=== PATIENT | male | born 1960 | race African-American/Black ===

== ENCOUNTER 2021-02-12 14:47 | Inpatient (IN) | payer MEDICARE, MEDICAID, SELFPAY ==
[2021-02-12] VITALS (8 sets, daily range): BP systolic 132–155; BP diastolic 60–97; PULSE 55–63; RESP 12–20; TEMP 36.3–37.2; O2SAT 96–100; BMI 27.8
--- NOTE | ~2021-02-12 | MR_ITS ---
EXAMINATION: MR MRCP wo con/w 3D wo ind pp DATE: 02/21/2021 17:55 INDICATION: Dilated common bile duct and main pancreatic duct. Assess for malignant stricture. TECHNIQUE: Magnetic resonance imaging (MRI) of the abdomen was performed without intravenous contrast . Sequences included coronal T2-weighted SS-FSE, coronal T2-weighted FS SS-FSE, coronal T2-weighted F S FIESTA, axial T2-weighted FS FIESTA, axial T2-weighted FIESTA, sagittal T2-weighted SS-FSE, axial T 1-weighted dual-echo FSPGR, axial T2-weighted SS-FSE, axial T1-weighted LAVA, axial T2-weighted STIR FSE. Thick-slab T2-weighted FRFSE-XL images were obtained for magnetic resonance cholangiopancreatogr aphy (MRCP). Rotating maximum intensity projection 3-D reconstructions of the volumetric data were cr eated by the technologist. COMPARISON: None. FINDINGS: ABDOMEN MRI: Cardiomegaly. Small right pleural effusion with dependent compressive atelectasis in the right lower lobe. Diffuse hepatic steatosis and cirrhosis with nodular liver surface. Small amount of perihepatic ascites. Intermediate T2 signal intensity sludge filling the nondilated gallbladder along with a few low signal intensity gallstones. There are numerous small cystic lesions along the dilated main panc reatic duct, the largest at the head measuring 2.5 x 1.0 cm. These likely represent a combination of dilated side branches and a chronic pseudocyst related to chronic pancreatitis with other cystic panc reatic neoplasm considered less likely. There is some peripancreatic edema surrounding the tail of th e pancreas suspicious for acute interstitial pancreatitis. Mild splenomegaly measuring 13.3 cm in max imal length which could be seen with portal venous hypertension. Bilateral adrenal glands are normal. Numerous tiny bilateral T2 hyperintense renal cysts, the largest measuring up to 7 mm in maximal anirudh meter. Bowels including the appendix are unremarkable. Small amount of perihepatic ascites. No pathol ogically enlarged abdominal lymphadenopathy. Mild lumbar levocurvature with mild to moderate spondylo sis. ABDOMEN MRCP: There is intrahepatic biliary ductal dilation as well as dilation of the proximal common bile duct wh ich measures up to 2.0 cm in maximal diameter. There is abrupt transition at a focal stricture at the distal common bile duct which measures approximately 1.8 cm in length where the lumen becomes nearly indiscernible before increasing to normal caliber 4 mm in the distalmost 1 cm of the duct. There is a similar stricture measuring approximately 1.7 cm in length at the main pancreatic duct and the panc reas which similarly increases to normal caliber in the distal most 1 cm of the duct. No definitive s urrounding mass identified at the head of the pancreas although evaluation is somewhat limited by the absence of intravenous contrast. IMPRESSION: 1. Segmental strictures at the head of the pancreas and both the distal common bile duct and distal m ain pancreatic duct with significant upstream dilation of main pancreatic duct as well as the more pr oximal intra and extrahepatic bile ducts. This raises concern for a pancreatic adenocarcinoma althoug h no discrete masses identified. This could also represent sequela of chronic pancreatitis. Recommend ERCP with biopsy for further evaluation. 2. Mild edema in the fat surrounding the tail of the pancreas suspicious for acute interstitial pancr eatitis. 3. Multiple cystic lesions along the dilated main pancreatic duct most likely combination of dilated side branches and pancreatic pseudocysts related to chronic pancreatitis. Correlate with clinical his tory. Cystic pancreatic neoplasms including intraductal papillary mucinous neoplasm (IPMN), mucinous cystic neoplasm (MCN), and the less common serous cystadenoma and neuroendocrine tumor are considered less likely. 4. Cholelithiasis. No evident choledocholithiasis. 5. Hepatic
--- NOTE | ~2021-02-12 | XR_ITS ---
XR abdomen NG/feed tube insert INDICATION: Evaluate G-tube position. TECHNIQUE: Limited KUB perform for evaluating NG tube . COMPARISON: No prior studies for comparison. FINDINGS: NG tube tip in the stomach, side port above the GE junction. Visualized bowel gas pattern is unremarkable.There is residual contrast in the colon. IMPRESSION: 1: NG tube tip in the stomach, side port above the GE junction. Reviewed, dictated and finalized at location A.
--- NOTE | ~2021-02-12 | US_ITS ---
EXAMINATION: US right upper quadrant DATE: 02/20/2021 08:31 INDICATION: Elevated liver function tests TECHNIQUE: Multiple grayscale and Doppler ultrasound images of the abdomen were obtained. COMPARISON: None FINDINGS: The region of the pancreas is partially obscured the pancreas is not clearly visualized. Liver has no rmal echogenicity but with coarsened echotexture with suggestion of possible surface nodularity and c ould not exclude cirrhosis. No liver lesion identified. No intrahepatic biliary duct dilation suspect ed. Portal venous flow was seen in the hepatopetal, normal direction and has normal Doppler waveform. The portal vasculature appears prominent which could be seen with portal venous hypertension. The ga llbladder is incompletely distended with minimal wall thickening. There is conglomeration likely slud ge and shadowing gallstones in the dependent aspect of the gallbladder. Trace amount of pericholecyst ic fluid. Sonographic Balnco sign was reported as negative by the form setter helper. The common bile duct m easures 3-4 mm, which is normal. IMPRESSION: 1. Coarsened echotexture and suggestion of some surface nodularity to the liver suspicious for cirrho sis. Correlate with clinical history. 2. Cholelithiasis with nonspecific minimal gallbladder wall thickening and trace amount of pericholec ystic fluid but without distention of the gallbladder or sonographic Blanco's to more specifically castellon ggest acute cholecystitis. The wall thickening and fluid can be seen in the setting of cirrhosis or o ther liver disease, heart failure or renal failure. If there is continued clinical concern for acute cholecystitis would recommend HIDA scan for further evaluation. 3. Increased prominence of the portal veins which can be seen in the setting of portal venous hyperte nsion. Reviewed, dictated and finalized at location B. IMPRESSION: 1. Coarsened echotexture and suggestion of some surface nodularity to the liver suspicious for cirrhosis. Correlate with clinical history. 2. Cholelithiasis with nonspecific minimal gallbladder wall thickening and trac e amount of pericholecystic fluid but without distention of the gallbladder or sonographic Blanco's to more specifically suggest acute cholecystitis. The wall thickening and fluid can be seen in the setting of cirrhosis or other liver di sease, heart failure or renal failure. If there is continued clinical concern f or acute cholecystitis would recommend HIDA scan for further evaluation. 3. Increased prominence of the portal veins which can be seen in the setting of portal venous hypertension.
--- NOTE | ~2021-02-12 | CT_ITS ---
EXAMINATION: CT abdomen pelvis wo con DATE: 02/20/2021 14:28 INDICATION: Diffuse abdominal pain TECHNIQUE: Computed tomography (CT) of the abdomen and pelvis was performed without intravenous contr ast. Automated exposure control and iterative reconstruction technique were employed. The dose-length product was 969.80 mGy-cm. COMPARISON: None FINDINGS: Dependently layering small right pleural effusion with dependent atelectasis in the right lower lobe. Heart size is normal. Atherosclerotic coronary artery calcific location. Aortic valve calcific locat ion. No pericardial effusion. Cirrhotic liver with mild surface nodularity. Small amount of perihepat ic ascites. High attenuation sludge and gallstones within the nondilated gallbladder. There is marked dilation of the main pancreatic duct as well as the common bile duct and central intrahepatic biliar y tree. There is peripancreatic stranding suspicious for acute interstitial pancreatitis. Spleen and bilateral adrenal glands are normal. Subcentimeter low-attenuation left renal cyst. Amorphous calcifi cation at the tips of the bilateral renal pyramids which could be tiny renal stones at the calyces or medullary nephrocalcinosis. No ureteral stones or hydronephrosis. There is retained oral contrast ma terial in the distal colon as well as within the normal appendix. No bowel obstruction. Decompressed bladder is normal. No free intraperitoneal gas or fluid. No pathologically enlarged abdominal or pelv ic lymphadenopathy. Mild lumbar levocurvature with mild to moderate degenerative skeletal changes in the spine and at the bilateral hips. IMPRESSION: 1. Cholelithiasis with marked dilation of the main pancreatic duct and intra and extrahepatic bile du cts which could be related to a nonvisualized obstructing gallstone. 2. Mild peripancreatic inflammatory stranding to indicate secondary acute interstitial pancreatitis. Correlate with amylase and lipase levels. 3. Cirrhosis. 4. Small right pleural effusion and small amount of ascites in the abdomen. 5. Nonobstructing nephrolithiasis versus medullary nephrocalcinosis. Reviewed, dictated and finalized at location B. IMPRESSION: 1. Cholelithiasis with marked dilation of the main pancreatic duct and intra an d extrahepatic bile ducts which could be related to a nonvisualized obstructing gallstone. 2. Mild peripancreatic inflammatory stranding to indicate secondary acute inter stitial pancreatitis. Correlate with amylase and lipase levels. 3. Cirrhosis. 4. Small right pleural effusion and small amount of ascites in the abdomen. 5. Nonobstructing nephrolithiasis versus medullary nephrocalcinosis.
--- NOTE | ~2021-02-12 | NM_ITS ---
EXAMINATION: NM hepatobiliary wo pharm DATE: 02/20/2021 16:08 INDICATION: Hyperbilirubinemia. COMPARISON: CT abdomen and pelvis 02/20/2021 TECHNIQUE: 3.5 mCi Tc-99m mebrofenin (Choletec) was administered intravenously. Scintigraphic images of the abdomen were obtained for one hour. Delayed images were obtained at 4 hours. FINDINGS: There is delayed clearance of radiotracer from the blood pool. There is homogeneous tracer uptake by the liver. At 1 hour, there is no activity in the gallbladder or bowel. At 4 hours, there i s activity in the bowel, but not gallbladder. IMPRESSION: 1. Delayed passage of activity to the bowel suspicious for common duct stricture from pancreatic nena nocarcinoma. ERCP is recommended. Reviewed, dictated and finalized at location A. IMPRESSION: 1. Delayed passage of activity to the bowel suspicious for common duct strictu re from pancreatic adenocarcinoma. ERCP is recommended.
--- NOTE | ~2021-02-12 | CT_ITS ---
EXAMINATION: CT brain wo con DATE: 02/12/2021 17:26 INDICATION: Confusion TECHNIQUE: Computed tomography (CT) of the head was performed without intravenous contrast. The mA wa s adjusted according to patient size. Iterative reconstruction technique was employed. Exam dose: 60 5.33 mGy-cm total exam DLP. COMPARISON: None FINDINGS: There is greater than expected central and cortical cerebral and cerebellar volume loss. There is prominent vertebral, basilar, bilateral carotid siphon and supraclinoid internal carotid art moni calcifications as well as middle cerebral artery calcification. There is nonspecific patchy diminished attenuation of the subcortical and periventricular cerebral wh ite matter, likely due to chronic small vessel ischemic changes. Chronic bilateral basal ganglia lacu eyad infarcts. No intracranial mass lesion or hemorrhage, midline shift or mass effect effect. No subdural or epidur al hematoma. Included paranasal sinuses and mastoid air cells are normally developed and aerated. No fracture or bone destruction of the cranial vault. IMPRESSION: Cerebral and cerebellar volume loss Extensive cerebral atherosclerosis and chronic small vessel ischemic changes Chronic bilateral basal ganglia lacunar infarcts Reviewed, dictated and finalized at Location A. Reviewed, dictated and finalized at location B.
--- NOTE | ~2021-02-12 | XR_ITS ---
EXAMINATION: XR chest 1V portable DATE: 02/12/2021 15:22 INDICATION: Generalized chest pain. Abnormal EKG. TECHNIQUE: frontal view of the chest was obtained. COMPARISON: None FINDINGS: Left lung is clear. Mild linear discoid atelectasis at the right midlung zone. No pulmonary edema, pl eural effusion or pneumothorax. The cardiomediastinal silhouette is normal. 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 IMPRESSION: 1. Mild discoid atelectasis at the right midlung zone. No other acute cardiopulmonary disease. Reviewed, dictated and finalized at location A. IMPRESSION: 1. Mild discoid atelectasis at the right midlung zone. No other acute cardiopul monary disease.
--- NOTE | ~2021-02-12 | XR_ITS ---
XR chest 1V portable DATE: 02/23/2021 10:23 INDICATION: Possible aspiration. Coarse lung sounds. TECHNIQUE: Portable semiupright AP chest on 03/05/2021 at 1013 hours COMPARISON: 02/12/2021 portable AP chest FINDINGS: Limited rotated portable single view chest examination. Heart size appears within normal limits. Is aortic arch calcification. bus driver/monitor device overlies the left chest. No pulmonary infiltrate or consolidation, pulmonary vascular congestion pleural effusion or pneumotho rax is noted. IMPRESSION: No active disease Reviewed, dictated and finalized at location A. IMPRESSION: No active disease
--- NOTE | ~2021-02-12 | XR_ITS ---
EXAMINATION: XR abdomen/kub 1V DATE: 02/23/2021 12:36 INDICATION: Small bowel obstruction versus ileus with vomiting TECHNIQUE: A supine view of the abdomen on 3 radiographs was obtained. COMPARISON: None. FINDINGS: Percutaneous gastrostomy tube bulb projects over the body of the stomach. Moderate amount of gas scat tered throughout the colon most prominently in the sigmoid colon. Additional small amount of scattere d gas within nondilated loops of small bowel. Scattered atherosclerotic calcific lesion along the aor ta, splenic artery and multiple arteries in the pelvis. Mild lumbar levorotoscoliosis. Moderate bilat eral hip osteoarthritis. IMPRESSION: 1. Nonobstructive bowel gas pattern. Reviewed, dictated and finalized at location A.
--- NOTE | ~2021-02-12 | XR_ITS ---
EXAMINATION: XR barium swallow modified EXAM DATE: 02/15/2021 09:17 INDICATION: Dysphagia. TECHNIQUE: Modified barium esophagram was performed by speech pathologist with radiologist Dr. Mack Arcos present to administered fluoroscopy. Speech pathologist administered barium in varying consis tencies as per speech pathologist documentation. This was recorded on tape. There was total fluorosc opic time of 1.3. The DAP for this procedure was 1.4 Gycm2. A total of 1 images sent to PACS from t he exam. FINDINGS: Oral stage: Adequate function. Pharyngeal phase: Dysfunction. Laryngeal penetration: Demonstrated. Aspiration: Demonstrated. Laryngeal sensitivity: Absent. Ingested pudding, thin liquid with reflux into the airway from the piriform sinuses. IMPRESSION: Silent aspiration demonstrated; Please refer to speech pathologist findings and specifi c feeding recommendations. Reviewed, dictated and finalized at location A. IMPRESSION: Silent aspiration demonstrated; Please refer to speech pathologis t findings and specific feeding recommendations.
--- NOTE | ~2021-02-12 | XR_ITS ---
XR abdomen NG/feed tube insert INDICATION: Evaluate NG tube position. TECHNIQUE: Limited KUB perform for evaluating NG tube . COMPARISON: 02/16/2021 FINDINGS: NG tube tip in the stomach. Visualized bowel gas pattern is unremarkable.There is residual contrast in the colon. IMPRESSION: 1: NG tube tip in the stomach. Reviewed, dictated and finalized at location A.
--- NOTE | 2021-02-12 15:13 | ECG_ITS ---
Measurements Intervals Silver Rate: 56 P: -76 WA: 114 QRS: -32 QRSD: 120 T: -10 QT: 462 QTc: 448 Interpretive Statements SINUS BRADYCARDIA LEFT AXIS DEVIATION INTRAVENTRICULAR CONDUCTION DELAY VOLTAGE CRITERIA FOR LVH POOR R WAVE PROGRESSION, ANTERIOR LEADS BORDERLINE T WAVE ABNORMALITY- INFERIOR LEADS BASELINE ARTIFACT- I, II, III, AVR, AVL,A VF BORDERLINE ECG Electronically Signed On 02-12-2021 15:15:58 CDT by Jason Trujillo D.O.
[2021-02-12 15:49] LABS: Basophils Percent Auto 0.6 % (0.2-1.2); Eosinophils Absolute Auto 0.2 K/mm3 (0-0.3); Eosinophils Percent Auto 3.5 % (0-4.4); Hematocrit 33.6 % (42.0-52.0); Hemoglobin 9.7 g/dL (14.0-18.0); Immature Granulocyte Absolute 0.01 K/mm3 (0.00-0.031); Immature Granulocyte Percent A 0.2 % (0-0.5); Lymphocytes Absolute Auto 0.86 K/mm3 (0.9-3.2); Mean Corpuscular HGB Conc 28.9 g/dl (32-36); Mean Corpuscular Volume 100.3 fl (80-100); Mean Platelet Volume 10.9 fl (7.4-10.4); Monocytes Absolute Auto 0.5 K/mm3 (0.1-0.6); Monocytes Percent Auto 9.3 % (2.6-8.5); Neutrophils Absolute Auto 3.8 K/mm3 (1.3-6.7); Neutrophils Percent Auto 70.4 % (45.5-73.1); Platelet Count Result 155 k/mm3 (150-375); Red Blood Count 3.35 M/mm3 (4.6-6.20); Red Cell Distribution Width 15.7 % (11.5-14.5); White Blood Count 5.4 K/mm3 (4.5-10.0)
[2021-02-12 16:04] LABS: Alanine Aminotransferase 26 U/L (4-50); Albumin Level 3.6 g/dL (3.5-5.1); Alkaline Phosphatase 572 U/L (38-126); Anion Gap 10 mmol/L (8-16); Aspartate Amino Transferase 44 U/L (17-59); Bilirubin,Total 2.5 mg/dL (0.2-1.3); Blood Urea Nitrogen 24 mg/dL (9-20); Calcium 8.6 mg/dL (8.4-10.2); Carbon Dioxide 34 mmol/L (22-30); Chloride 98 mmol/L (98-107); Estimated Glomerular Filt Rate 16; Glucose 158 mg/dL (65-110); Sodium 142 mmol/L (137-145)
[2021-02-12 16:20] LABS: Troponin I 0.041 ng/mL (0.000-0.034)
[2021-02-12 16:59] LABS: Anisocytosis 1+ (NORMAL); Hypochromasia 1+ (NORMAL); Platelet Estimate Adequate (Adequate)
[2021-02-12 17:03] LABS: INR 1.1; Prothrombin Time 14.2 Seconds (11.1-14.7)
[2021-02-12 17:04] LABS: Partial Thromboplastin Time 36.6 SECONDS (22.3-36.8)
--- NOTE | 2021-02-12 17:41 | ED.GENADULT ---
HPI - General Adult General Chief complaint: Recheck/Abnormal Lab/Rx <Geovanny Quezada PA-C - Last Filed: 02/12/21 17:52> Stated complaint: ABN EKG <SAPNA Kern Last Filed: 02/12/21 17:52> Time Seen by Provider: 02/12/21 15:05 <SAPNA Kern Last Filed: 02/12/21 17:52> Source: patient, EMS, RN notes reviewed and other <SAPNA Kern Last Filed: 02/12/21 17:52> Mode of arrival: EMS <SAPNA Kern Last Filed: 02/12/21 17:52> Limitations: clinical condition <SAPNA Kern Filed: 02/12/21 17:52> History of Present Illness HPI narrative: Patient is 60-year-old male who presents from [facility] for evaluation evaluation of having abnormal EKG this morning at the care home patient reportedly also may have complained of chest pain this morning on arrival to emergency department he has no complaints of chest pain he is resting in the room comfortably he denies any illnesses or other concerns and is otherwise resting comfortably as noted on arrival he does appear to be somewhat of a limited historian he is alert and oriented to person and reason for being here confused as to the date or the location he has not typically came to this hospital. Discussion was made with the nurse practitioner who has had him under her care she notes that he is a dialysis patient with dialysis Thursday did have dialysis he sees an outside database marketing specialist not on staff at our facility by the name of Nabeel Kwan. Patient has not had recent illness per nurse practitioner and reportedly complained of chest discomfort this morning which led to the EKG and the transfer to the emergency department. <SAPNA Kern Last Filed: 02/12/21 17:52> Related Data Allergies/adverse reactions: Allergies Allergy/AdvReac Type Severity Reaction Status Date / Time No Known Allergies Allergy Verified 02/12/21 17:04 <SAPNA Kern Last Filed: 02/12/21 17:52> Review of Systems Review of Systems: CONSTITUTIONAL: Denies fever, chills ENT: Denies rhinorrhea, congestion CARDIOVASCULAR: Denies chest pain, or edema. RESPIRATORY: Denies cough or dyspnea. GASTROINTESTINAL: Denies abdominal pain, nausea, vomiting GENITOURINARY: Denies dysuria or hematuria. SKIN: Denies rash MUSCULOSKELETAL: Denies back pain NEUROLOGIC: Denies headache, dizziness <Geovanny Quezada PA-C - Last Filed: 02/12/21 17:52> ROS unobtainable: Yes other (Limited due to history of dementia) <Geovanny Quezada PA-C - Last Filed: 02/12/21 17:52> [facility] Past Medical History Medical History: Medical History (Updated 02/12/21 @ 17:52 by Geovanny Quezada PA-C) Acute CVA (cerebrovascular accident) Cirrhosis Diabetes mellitus Hemiparesis Hyperlipidemia Hypertension <Geovanny Quezada PA-C - Last Filed: 02/12/21 17:52> Social History Social History: Social History (Updated 02/12/21 @ 17:49 by Geovanny Quezada PA-C) Smoking status: Smoker, status unknown <Geovanny Quezada PA-C - Last Filed: 02/12/21 17:52> Exam Narrative: GENERAL: Chronically ill-appearing, well-nourished, and in no acute distress. HEAD: Normocephalic, atraumatic. EYES: PERRLA and EOMI. ENT: Nares clear, no rhinorrhea or epistaxis. Mucous membranes moist. CHEST: Clear to auscultation. No respiratory distress. No wheezes rales or rhonchi HEART: Regular rate and rhythm. No murmur heard. Normal peripheral pulses. ABDOMEN: Soft, nontender, nondistended EXTREMITIES: Normal range of motion. No edema. SKIN: Warm, dry, no rash. NEURO: Alert and oriented x2. Cranial nerves II through XII grossly intact with chronic right-sided weakness PSYCH: Normal mood and affect. <Geovanny Quezada PA-C - Last Filed: 02/12/21 17:52> Course Course Emergency Course: Patient will be brought into the hospital with trending of his troponins given his mildly elevated troponin the
[2021-02-12 19:20] LABS: Troponin I 0.043 ng/mL (0.000-0.034)
--- NOTE | 2021-02-12 21:09 | PM.IMHP ---
H&P: HPI History of Present Illness Date/Time: 02/12/21 21:09 this is a 60-year-old male patient who comes from [facility] he has a past medical history of having end-stage renal disease and having dialysis on Thursday and Thursday. I did call the care home and they told me that the patient has been receiving routine dialysis. The patient does have p.r.n. oxygen ordered at the care home and he is a full code. The patient was sent here today for evaluation of an abnormal EKG from the care home and the patient reportedly complained of chest pain this morning. When he came to the emergency room he no longer had any complaints of chest pain. I asked the patient if he had any pain and he said he did not. I did call [facility] to get a little bit of M for september and they stated that his baseline is a and O x2. The patient has a academic affairs director who is outside facility and does not have privileges here at the hospital by the name of Nabeel lam. The patient's EKG was read as sinus bradycardia left axis deviation. His H&H is 9.7 and 33.6. His MCV is 100.3. His potassium was found to be 3.0. His creatinine 3.9 BUN 24. GFR 16. Troponin 0.[address] of the head was read as cerebral and cerebellar volume loss. Extensive cerebral atherosclerosis and chronic small-vessel ischemic changes. Chronic bilateral basal ganglia lacunar infarcts. Chest x-ray was read as mild discoid atelectasis at the right midlung zone. No other acute cardiopulmonary disease. The patient is A&O x2 at this time and has no idea jaquez in the hospital. The patient is being admitted for observation status the date of service of 02/12/2021 Chief Complaint: Chest pain Review of Systems Review of Systems: ROS unobtainable: Yes unobtainable due to mental status [facility] Past Medical History Medical History (Updated 02/12/21 @ 21:31 by Blanche Mills NP) Acute CVA (cerebrovascular accident) Anemia, chronic disease BPH (benign prostatic hyperplasia) Chest pain Cirrhosis Depression Diabetes mellitus End stage renal disease on dialysis On dialysis Thursday and Thursday G tube feedings No longer has a G-tube subsequently removed. Gastroesophageal reflux disease Gout Hemiparesis Hyperlipidemia Hypertension Hypothyroidism Neuropathy Surgical History Surgical History (Updated 02/12/21 @ 21:19 by Blanche Mills NP) History of abdominal surgery Family History Family History (Updated 02/12/21 @ 21:26 by Blanche Mills NP) Unknown Unknown family medical history Social History Social History (Updated 02/12/21 @ 21:27 by Blanche Mills NP) Social History: The patient has a Terri listed as his power document review attorney. The patient is listed as a full code. The patient also has a listed. The patient is from [facility]. Smoking status: Smoker, status unknown Meds Home Medications and Allergies Home Medications Medication Instructions Recorded Confirmed Type aspirin 81 mg PO DAILY 02/12/21 History atorvastatin 10 mg PO HS 02/12/21 History clopidogrel [Plavix] 75 mg PO DAILY 02/12/21 History losartan 50 mg PO DAILY 02/12/21 History Allergies Allergy/AdvReac Type Severity Reaction Status Date / Time No Known Allergies Allergy Verified 02/12/21 17:04 Vital Signs Vital Signs - 24 hr 02/12/21 14:50 02/12/21 16:31 02/12/21 17:47 Temperature 37.0 C Pulse Rate 62 60 62 Respiratory Rate 14 18 12 Blood Pressure 137/72 155/97 H 143/69 H Pulse Oximetry 99 100 96 02/12/21 18:05 02/12/21 20:06 Temperature 37.2 C Pulse Rate 63 62 Respiratory Rate 20 16 Blood Pressure 142/71 H 145/72 H Pulse Oximetry 97 100 Exam Const: General: cooperative, comfortable, no acute distress, well developed, alert, awake and Physically active Nutritional Appearance: average body habitus Orientation/consciousness: oriented to person and oriented to nolan
[2021-02-12 22:02] LABS: Anion Gap 12 mmol/L (8-16); Blood Urea Nitrogen 26 mg/dL (9-20); Calcium 8.6 mg/dL (8.4-10.2); Carbon Dioxide 34 mmol/L (22-30); Chloride 97 mmol/L (98-107); Estimated Glomerular Filt Rate 18; Glucose 126 mg/dL (65-110); Potassium 2.6 mmol/L (3.4-5.0); Sodium 143 mmol/L (137-145); Troponin I 0.046 ng/mL (0.000-0.034)
--- NOTE | 2021-02-12 22:26 | ADMGEN ---
This patient, Dave Lua, was admitted to IMU Room 204-01 at 2030 on 02/12/21. Patient/family oriented to hospital policies and general routines including ID bracelet, bed and alarms, visiting hours, pain management, procedures, bathroom and other care routines, personal items, smoking policy, room service/diet, and visiting hours. Information on how to activate the Rapid Response Team has been discussed. Patient/Family are encouraged to report perceived risks to care and to ask questions if they do not understand what they are told or what they should do.
[2021-02-13] VITALS (24 sets, daily range): BP systolic 128–170; BP diastolic 54–84; PULSE 53–68; RESP 16–18; TEMP 36.3–37; O2SAT 93–98; BMI 27.8
--- NOTE | 2021-02-13 | ECHO_ITS ---
Patient Info Name: Dave Lua Age: 60 years : 1960 Gender: Male Ht: 68 in Wt: 183 lbs BSA: 2.01 m2 HR: 56 bpm BP: 153 / 70 mmHg Heart Rhythm: Sinus Rhythm Technical Quality: Good Exam Date: 02/13/2021 11:08 AM Exam Location: [facility] Patient Status: Inpatient Admit Date: 02/12/2021 Staff Ordering Physician: Mayela Harris MD [employer] Eligibility Assistant: Juju Molina RDCS Attending Provider: Roseann Belcher MD Exam Type: CA echo doppler color flow Study Info Indications - ON HD MWF R07.9 - Chest pain, unspecified R94.31 - Abnormal electrocardiogram ECG EKG Complete two-dimensional, color flow and Doppler transthoracic echocardiogram is performed. Summary 1. Complete two-dimensional, color flow and Doppler transthoracic echocardiogram is performed. 2. Normal left ventricular size with mild concentric hypertrophy. Overall good left ventricular function with mild hypokinesis of the basal inferior and lateral pelletier. Ejection fraction is calculated to be 63%, estimated to be 55-60% visually. Diastolic function appears normal. 3. Left atrial chamber dimension is moderately enlarged. 4. Right ventricular chamber dimension is mildly enlarged, probably with mild dysfunction. However the right ventricle is not well seen.. 5. Mild pulmonary hypertension, estimated pulmonary arterial systolic pressure is 37 mmHg. 6. No significant valve disease. 7. Normal sinus rhythm. 8. Technically difficult study, the endocardium was not well seen on all views. Left Ventricle Left ventricular chamber dimension is normal. Left ventricular systolic function is normal, estimated at 55-60%. There is mildly increased left ventricular wall thickness. Left ventricular septal wall motion is normal. The left ventricular diastolic function is normal. Right Ventricle Right ventricular chamber dimension is mildly enlarged, probably with mild dysfunction. However the right ventricle is not well seen.. Right ventricular systolic function is reduced. Left Atria Left atrial chamber dimension is moderately enlarged. Right Atria Right atrial chamber dimension is normal. Aortic Valve The aortic valve is trileaflet. There is no aortic valve sclerosis. There is no aortic valve stenosis. There is no aortic valve regurgitation. Pulmonic Valve The pulmonic valve is normal. There is no pulmonic valve stenosis. There is no pulmonic regurgitation. Mitral Valve The mitral valve has normal leaflets. There is no mitral valve stenosis. There is trace mitral valve regurgitation. Tricuspid Valve The tricuspid valve leaflets are normal. There is no significant tricuspid valve stenosis. There is trace tricuspid valve regurgitation. Mild pulmonary hypertension, estimated pulmonary arterial systolic pressure is 37 mmHg. Pericardium/Pleural The pericardium appears normal. There is no pericardial effusion. Inferior Vena Cava Normal inferior vena cava with >50% collapse upon inspiration consistent with Empty right atrial pressure, 10 mmHg. Aorta The aortic root size at the sinus of Valsalva is normal. The prox ascending aorta size is normal. There is mild aortic atherosclerosis. Left Ventricular Outflow Tract Name Value Normal LVOT 2D
[2021-02-13 04:57] LABS: Basophils Percent Auto 0.5 % (0.2-1.2); Eosinophils Absolute Auto 0.2 K/mm3 (0-0.3); Eosinophils Percent Auto 4.3 % (0-4.4); Hematocrit 30.5 % (42.0-52.0); Hemoglobin 9.2 g/dL (14.0-18.0); Immature Granulocyte Absolute 0.02 K/mm3 (0.00-0.031); Immature Granulocyte Percent A 0.4 % (0-0.5); Lymphocytes Absolute Auto 0.67 K/mm3 (0.9-3.2); Lymphocytes Percent Auto 12.1 % (18.3-44.2); Mean Corpuscular HGB Conc 30.2 g/dl (32-36); Mean Corpuscular Hemoglobin 28.7 pg (26-34); Mean Platelet Volume 10.5 fl (7.4-10.4); Monocytes Absolute Auto 0.4 K/mm3 (0.1-0.6); Monocytes Percent Auto 7.6 % (2.6-8.5); Neutrophils Absolute Auto 4.2 K/mm3 (1.3-6.7); Neutrophils Percent Auto 75.1 % (45.5-73.1); Platelet Count Result 160 k/mm3 (150-375); Red Blood Count 3.21 M/mm3 (4.6-6.20); Red Cell Distribution Width 15.7 % (11.5-14.5); White Blood Count 5.5 K/mm3 (4.5-10.0)
[2021-02-13 05:08] LABS: Alanine Aminotransferase 28 U/L (4-50); Albumin Level 3.5 g/dL (3.5-5.1); Alkaline Phosphatase 616 U/L (38-126); Anion Gap 14 mmol/L (8-16); Aspartate Amino Transferase 48 U/L (17-59); Blood Urea Nitrogen 27 mg/dL (9-20); Calcium 8.6 mg/dL (8.4-10.2); Carbon Dioxide 32 mmol/L (22-30); Chloride 99 mmol/L (98-107); Estimated CRCL calculation 16 ml/min; Estimated Glomerular Filt Rate 16; Glucose 118 mg/dL (65-110); Lactate Dehydrogenase 317 U/L (313-618); Lipase 486 U/L (23-300); Magnesium 1.9 mg/dL (1.6-2.3); Potassium 3.2 mmol/L (3.4-5.0); Sodium 145 mmol/L (137-145)
[2021-02-13] MEDS: LEVOTHYROXINE SODIUM 25 MCG TABLET PO (06:24)
[2021-02-13] MEDS: LEVOTHYROXINE SODIUM 112 MCG TABLET PO (06:25)
[2021-02-13] MEDS: HYDROcodone/acetaminophen (*CRX) 7.5-325 MG TABLET 1 TAB PO ×3 (06:26→21:33)
[2021-02-13 07:18] LABS: Hemoglobin A1C 5.1 % (<5.7)
[2021-02-13 08:55] LABS: Glucose Point of Care 103 mg/dl (65-105)
[2021-02-13] MEDS: GABAPENTIN 100 MG CAPSULE PO ×3 (09:27→21:33)
[2021-02-13] MEDS: LOSARTAN POTASSIUM 50 MG TABLET PO (09:27)
[2021-02-13] MEDS: CLOPIDOGREL BISULFATE 75 MG TABLET PO (09:27)
[2021-02-13] MEDS: dilTIAZem HCL 60 MG TABLET PO (09:27)
[2021-02-13] MEDS: ASPIRIN 81 MG ENTERIC TABLET PO (09:27)
[2021-02-13] MEDS: PARoxetine 20 MG TABLET PO (09:27)
[2021-02-13] MEDS: METOPROLOL TARTRATE 50 MG TAB 100 MG PO ×2 (09:27→21:29)
[2021-02-13 10:24] LABS: Hepatitis B Surface Antigen Negative (Negative)
[2021-02-13 10:29] LABS: Hepatitis B Core IgM Result Negative (Negative)
[2021-02-13 10:41] LABS: Hepatitis B Surface Anti Res Positive
[2021-02-13] MEDS: SEVELAMER CARBONATE 800 MG TABLET PO ×2 (12:22→21:33)
--- NOTE | 2021-02-13 15:15 | PC.NURSE ---
Patient to dialysis via bed.
[2021-02-13] MEDS: EPOETIN ALFA-EPBX 10,000 UNITS/ML VIAL 10000 UNITS IV PUSH (15:45)
--- NOTE | 2021-02-13 16:21 | PM.PNNEP ---
Progress Note: A&P Assessment and Plan (1) End stage renal disease: Code(s): N18.6 - End stage renal disease Status: Chronic Assessment and Plan: HD today and continue M/W/F schedule follow electrolytes, volume status, and clearance FULL CONSULT to follow. Subjective Date/time seen: 02/13/21 16:21 Tolerating dialysis treatment at the time of my visit (seen on HD at around 4pm); not very communicative but no apparent distress noted; no complaints voiced. Exam Narrative: General: WD/WN AA male in NAD Heart: normal S1 and S2; no rub Lungs: clear to auscultation Abdomen: soft, nontender, nondistended, positive bowel sounds Extremities: no cyanosis or clubbing; no edema Skin: warm and dry Objective Data Vital Signs Vital Signs: Vital Signs Temp Pulse Resp BP Pulse Ox 02/13/21 16:00 56 L 151/79 H 02/13/21 15:30 53 L 163/82 H 02/13/21 15:20 36.4 C 53 L 18 157/76 H 02/13/21 14:00 53 L 02/13/21 12:00 36.4 C L 54 L 18 141/60 H 98 02/13/21 10:00 58 L 02/13/21 09:27 66 02/13/21 08:00 36.9 C 62 16 153/70 H 93 02/13/21 06:00 63 02/13/21 04:00 36.3 C L 67 16 128/62 98 02/13/21 02:00 68 02/13/21 00:00 64 02/12/21 23:23 36.8 C 55 L 14 132/60 98 02/12/21 20:30 36.3 C L 61 16 154/71 H 96 02/12/21 20:06 62 16 145/72 H 100 02/12/21 20:00 56 L Meds/Results Medications: Active Medications Generic Name Dose Route Start Last Admin Trade Name Freq PRN Reason Stop Dose Admin Acetaminophen 650 mg 02/12/21 17:52 Acetaminophen 325 Mg Tablet PO Q4H PRN Mild Pain (1-3) Hydrocodone Bitart/Acetaminophen 1 tab 02/13/21 06:00 02/13/21 14:37 Hydrocodone/Acetaminophen (*Crx) 7.5-325 Mg Tablet PO 1 tab Q8H SAM Administration Al Hydrox/Mg Hydrox/Simethicone 30 ml 02/12/21 17:52 Mag Hydrox/Al Hydrox/Simeth 30 Ml Udc PO Q6H PRN Indigestion Aspirin 81 mg 02/13/21 09:00 02/13/21 09:27 Aspirin 81 Mg Enteric Tablet PO 81 mg QAM SAM Administration Atorvastatin Calcium 10 mg 02/12/21 23:05 02/13/21 00:00 Atorvastatin 10 Mg Tablet PO 10 mg HS SAM Administration Clopidogrel Bisulfate 75 mg 02/13/21 09:00 02/13/21 09:27 Clopidogrel Bisulfate 75 Mg Tablet PO 75 mg DAILY SAM Administration Dextrose 12.5 gm 02/12/21 21:03 Dextrose 50% 25 Gm/50 Ml Syringe IV PUSH PRN PRN Hypoglycemia Protocol Epoetin Tarik-epbx 10,000 units 02/13/21 21:09 02/13/21 15:45 Epoetin Tarik-Epbx 10,000 Units/Ml Vial IV PUSH 02/13/21 21:10 10,000 units ONCE ONE Administration Gabapentin 100 mg 02/13/21 09:00 02/13/21 12:21 Gabapentin 100 Mg Capsule PO 100 mg TID SAM Administration Glucagon 1 mg 02/12/21 21:03 Glucagon For Inj 1 Mg Vial IM PRN PRN Hypoglycemia Protocol Glucose 15 gm 02/12/21 21:03 Glucose Oral Gel 15 Gm Of Glucse In 37.5 Gm Tube PO PRN PRN Hypoglycemia Protocol Dextrose 1,000 mls @ 100 mls/hr 02/12/21 21:03 Dextrose 5% 1,000 Ml IVPB PRN PRN Hypoglycemia Protocol Albumin Human 50 mls @ 999 mls/hr 02/13/21 09:09 Albutein IVPB 03/15/21 09:08 Q10M PRN HYPOTENSION Insulin Aspart 2 - 5 units 02/13/21 08:00 02/13/21 11:46 Insulin Aspart (*Bkc) 100 Units/Ml SUB-Q Not Given TIDWM SAM Protocol Lactobacillus Acidophilus 1 tablet 02/13/21 09:00 02/13/21 09:21 Acidophilus/Bulgaricus Chewable Tablet PO Not Given DAILY SAM Levothyroxine Sodium 112 mcg 02/13/21 06:30 02/13/21 06:25 Levothyroxine Sodium 112 Mcg Tablet PO 112 mcg DAILY@0630 SAM Administration Levothyroxine Sodium 25 mcg 02/13/21 06:30 02/13/21 06:24 Levothyroxine Sodium 25 Mcg Tablet PO 25 mcg DAILY@0630 SAM Administration Loperamide HCl 1 mg 02/13/21 03:20 Loperamide Hcl 2 Mg Capsule PO Q6H PRN Diarrhea Losartan Pota
--- NOTE | 2021-02-13 17:20 | PM.IMPN ---
Progress Note: A&P Assessment and Plan (1) Chest pain: Code(s): R07.9 - Chest pain, unspecified Status: Acute Assessment and Plan: The patient is no longer complaining of chest pain. The patient is in sinus bradycardia 02/13 Interval history, patient is quite somnolent unable to provide any history review of symptom, admitted for chest pain EKG showed bradycardia patient is on metoprolol and diltiazem, will hold diltiazem continue metoprolol and monitor to further evaluate cardiac echo is ordered will follow-up, once patient clinically stable will have PT OT evaluate the and further recommendation to follow. patient with end-stage renal disease on hemodialysis seen by Nephrology and will have scheduled dialysis, will continue to monitor (2) Elevated troponin: Code(s): R77.8 - Other specified abnormalities of plasma proteins Status: Acute Assessment and Plan: The patient is not having any further chest pain. This could be related to his end-stage renal disease. Appears to be level be level (3) End stage renal disease on dialysis: Code(s): N18.6 - End stage renal disease; Z99.2 - Dependence on renal dialysis Status: Chronic Assessment and Plan: Nephrology has been consulted. He has dialysis on Thursday. (4) Diabetes mellitus: Code(s): E11.9 - Type 2 diabetes mellitus without complications Status: Chronic Assessment and Plan: Accu-Cheks AC and HS. Check A1c. Sliding scale insulin (5) Hyperlipidemia: Code(s): E78.5 - Hyperlipidemia, unspecified Status: Chronic Assessment and Plan: Continue with atorvastatin (6) Hypertension: Code(s): I10 - Essential (primary) hypertension Status: Chronic Assessment and Plan: Continue with losartan. (7) BPH (benign prostatic hyperplasia): Code(s): N40.0 - Benign prostatic hyperplasia without lower urinary tract symptoms Status: Chronic Assessment and Plan: Continue with home medications. (8) Hypothyroidism: Code(s): E03.9 - Hypothyroidism, unspecified Status: Chronic Assessment and Plan: Check thyroid level and continue with home medication. (9) Neuropathy: Code(s): G62.9 - Polyneuropathy, unspecified Status: Chronic Assessment and Plan: According to the half-way sheets the patient was on gabapentin. (10) Anemia, chronic disease: Code(s): D63.8 - Anemia in other chronic diseases classified elsewhere Status: Chronic Assessment and Plan: Unable to determine patient's baseline. But patient is end-stage renal disease. H&H is 9.7 and 33.6. Please continue to monitor. This diagnosis was listed in his chart from the half-way. (11) Cirrhosis: Code(s): K74.60 - Unspecified cirrhosis of liver Status: Chronic Assessment and Plan: Chronic (12) Depression: Code(s): F32.9 - Major depressive disorder, single episode, unspecified Status: Chronic Assessment and Plan: Continue with home medications. Subjective Date/time seen: 02/13/21 17:20 this is a 60-year-old male patient who comes from [facility] he has a past medical history of having end-stage renal disease and having dialysis on Thursday and Thursday. I did call the half-way and they told me that the patient has been receiving routine dialysis. The patient does have p.r.n. oxygen ordered at the half-way and he is a full code. The patient was sent here today for evaluation of an abnormal EKG from the half-way and the patient reportedly complained of chest pain this morning. When he came to the emergency room he no longer had any complaints of chest pain. I asked the patient if he had any pain and he said he did not. I did call [facility] to get a little bit of M for september rodriguez and they stated that his baseline is a and O x2. The patient alex
[2021-02-13 17:34] LABS: Glucose Point of Care 84 mg/dl (65-105)
--- NOTE | 2021-02-13 19:03 | PC.NURSE ---
Patient returned to room following dialysis.
[2021-02-13 21:30] LABS: Glucose Point of Care 153 mg/dl (65-105)
[2021-02-13] MEDS: ATORVASTATIN 10 MG TABLET PO ×2 (21:33)
[2021-02-13] MEDS: MIRTAZAPINE 15 MG TABLET PO (21:33)
[2021-02-13] MEDS: TERAZOSIN HCL 1 MG CAPSULE 2 MG PO (21:33)
[2021-02-14] VITALS (14 sets, daily range): BP systolic 115–163; BP diastolic 49–81; PULSE 46–90; RESP 12–18; TEMP 36.2–36.8; O2SAT 98–100
[2021-02-14 05:15] LABS: Hematocrit 31.1 % (42.0-52.0); Mean Corpuscular HGB Conc 28.9 g/dl (32-36); Mean Corpuscular Hemoglobin 28.8 pg (26-34); Mean Corpuscular Volume 99.4 fl (80-100); Mean Platelet Volume 11.1 fl (7.4-10.4); Platelet Count Result 162 k/mm3 (150-375); Red Blood Count 3.13 M/mm3 (4.6-6.20); White Blood Count 4.8 K/mm3 (4.5-10.0)
[2021-02-14 05:25] LABS: Albumin Level 3.4 g/dL (3.5-5.1); Anion Gap 10 mmol/L (8-16); Blood Urea Nitrogen 14 mg/dL (9-20); Calcium 8.7 mg/dL (8.4-10.2); Carbon Dioxide 32 mmol/L (22-30); Chloride 101 mmol/L (98-107); Estimated CRCL calculation 23 ml/min; Estimated Glomerular Filt Rate 25; Glucose 101 mg/dL (65-110); Magnesium 1.8 mg/dL (1.6-2.3); Phosphorus 3.4 mg/dL (2.5-4.5); Potassium 3.3 mmol/L (3.4-5.0); Sodium 143 mmol/L (137-145)
[2021-02-14] MEDS: LEVOTHYROXINE SODIUM 25 MCG TABLET PO (05:42)
[2021-02-14] MEDS: HYDROcodone/acetaminophen (*CRX) 7.5-325 MG TABLET 1 TAB PO (05:42)
[2021-02-14] MEDS: LEVOTHYROXINE SODIUM 112 MCG TABLET PO (05:42)
[2021-02-14 09:03] LABS: Glucose Point of Care 99 mg/dl (65-105)
[2021-02-14] MEDS: ACIDOPHILUS/BULGARICUS CHEWABLE TABLET 1 TABLET PO (10:02)
[2021-02-14] MEDS: PARoxetine 20 MG TABLET PO (10:02)
[2021-02-14] MEDS: ASPIRIN 81 MG ENTERIC TABLET PO (10:02)
[2021-02-14] MEDS: LOSARTAN POTASSIUM 50 MG TABLET PO (10:02)
[2021-02-14] MEDS: CLOPIDOGREL BISULFATE 75 MG TABLET PO (10:02)
[2021-02-14] MEDS: GABAPENTIN 100 MG CAPSULE PO (10:03)
[2021-02-14 12:34] LABS: Glucose Point of Care 83 mg/dl (65-105)
--- NOTE | 2021-02-14 13:43 | PCSTNOTE ---
Please refer to the Bedside Swallow Evaluation in the EMR. Please note, silent aspiration cannot be ruled out at bedside.
--- NOTE | 2021-02-14 14:54 | PM.CNNEP ---
Assessment and Plan Assessment and plan (1) End stage renal disease: Code(s): N18.6 - End stage renal disease Status: Chronic Assessment and Plan: HD tomorrow and continue M/W/F schedule while hospitalized electrolytes, volume status, and clearance acceptable (2) Chest pain: Code(s): R07.9 - Chest pain, unspecified Status: Acute Assessment and Plan: no further episodes troponins flat consistent with his CKD/ESRD issues with bradycardia -- Cardiology following (3) Anemia: Code(s): D64.9 - Anemia, unspecified Status: Chronic Assessment and Plan: presumably related to ESRD Epogen with HD follow trend of H/H (4) Hypertension: Code(s): I10 - Essential (primary) hypertension Status: Chronic Assessment and Plan: fluctuating follow trend of hemodynamics (5) Diabetes mellitus: Code(s): E11.9 - Type 2 diabetes mellitus without complications Status: Chronic Assessment and Plan: follow accuchecks glycemic control Will continue to follow. History of Present Illness Reason for Consult Consult date: 02/14/21 Reason for consult: end stage renal disease Chief Complaint Chief complaint: Elevated troponin History of Present Illness Narrative: The patient is a 60-year-old male with a past medical history as outlined below who presented from his nursing facility for reportedly having symptoms of chest pain in association with an abnormal EKG. Most of the information I have obtained is from review of the electronic medical record as well as discussion with his outpatient dialysis unit as the patient is not very communicate of/forthcoming with information. Apparently, the patient complained of chest pain and he subsequently had an EKG that demonstrated sinus bradycardia with a left axis deviation. However, on presentation to the ER, it is difficult to ascertain if he still had chest pain or if it had resolved. He did not appear to be any distress by the time of his arrival to the emergency room. Workup and evaluation emergency room demonstrated the patient to be hemodynamically stable and in no apparent distress. Routine blood test demonstrated labs consistent with his known history of end-stage renal disease although he was hypokalemic. Initial troponins were mildly elevated which were thought to be secondary to his end-stage renal disease. A CT scan of his head demonstrated cerebral/cerebellar volume loss with extensive atherosclerosis and small-vessel ischemic changes along with chronic bilateral basal ganglia lacunar infarcts. His chest x-ray was otherwise negative. Given the elevated troponins, the abnormal EKG, and his complaints of chest pain, he was admitted the hospital for further evaluation and therapy. Since his admission, he does not appear to be in acute distress but as already mentioned, he is not very communicate of when asked questions. He received dialysis yesterday to maintain his Thursday, Thursday, Thursday dialysis schedule and tolerated the treatment reasonably well. Renal consultation was requested due to his end-stage renal disease. The patient normally dialyzes on a Thursday, Thursday, Thursday dialysis schedule at [facility] under the care of Dr. Nabeel Kwan. From my discussion with his outpatient dialysis unit, the patient has been on dialysis for approximately 4 years and he initially started on peritoneal dialysis but this was complicated by fungal peritonitis and says this led to his subsequent transition to hemodialysis. Further complicating matters is that he had a recent stroke/CVA which resulted in a significant decline in his overall function and mentation. Although he has been somewhat noncommunicative during his hospital stay here, his dialysis center does report that he will talk and respond to questions when he feels like it. He has lost a significant amou
--- NOTE | 2021-02-14 14:56 | PCSTNOTE ---
Therapist received order for Modified Barium Swallow study at this time however Radiology schedule is filled and MBS is unable to be completed this afternoon. This will be scheduled and completed in the morning.
--- NOTE | 2021-02-14 15:08 | PM.IMPN ---
Progress Note: A&P Assessment and Plan (1) Chest pain: Code(s): R07.9 - Chest pain, unspecified Status: Acute Assessment and Plan: The patient is no longer complaining of chest pain. The patient is in sinus bradycardia 02/14/21 15:08 02/13 Interval history, patient is quite somnolent unable to provide any history review of symptom, admitted for chest pain EKG showed bradycardia patient is on metoprolol and diltiazem, will hold diltiazem continue metoprolol and monitor to further evaluate cardiac echo is ordered will follow-up, once patient clinically stable will have PT OT evaluate the and further recommendation to follow. patient with end-stage renal disease on hemodialysis seen by Nephrology and will have scheduled dialysis, will continue to monitor 02/14 patient still quite somnolent and unable to provide any review of symptom other than complaints of pain in his back, patient is admitted with complaint of chest pain his tropes are slightly elevate and flat most likely secondary to end-stage renal disease on hemodialysis, is found to have bradycardia held diltiazem on 02/13 however this morning his heart rate is 48, will hold metoprolol, cardiac echo is ordered and pending, will consult survey methodologist for further recommendation, will continue to monitor. (2) Elevated troponin: Code(s): R77.8 - Other specified abnormalities of plasma proteins Status: Acute Assessment and Plan: The patient is not having any further chest pain. This could be related to his end-stage renal disease. Appears to be level be level (3) End stage renal disease on dialysis: Code(s): N18.6 - End stage renal disease; Z99.2 - Dependence on renal dialysis Status: Chronic Assessment and Plan: Nephrology has been consulted. He has dialysis on Thursday. (4) Diabetes mellitus: Code(s): E11.9 - Type 2 diabetes mellitus without complications Status: Chronic Assessment and Plan: Accu-Cheks AC and HS. Check A1c. Sliding scale insulin (5) Hyperlipidemia: Code(s): E78.5 - Hyperlipidemia, unspecified Status: Chronic Assessment and Plan: Continue with atorvastatin (6) Hypertension: Code(s): I10 - Essential (primary) hypertension Status: Chronic Assessment and Plan: Continue with losartan. (7) BPH (benign prostatic hyperplasia): Code(s): N40.0 - Benign prostatic hyperplasia without lower urinary tract symptoms Status: Chronic Assessment and Plan: Continue with home medications. (8) Hypothyroidism: Code(s): E03.9 - Hypothyroidism, unspecified Status: Chronic Assessment and Plan: Check thyroid level and continue with home medication. (9) Neuropathy: Code(s): G62.9 - Polyneuropathy, unspecified Status: Chronic Assessment and Plan: According to the halfway sheets the patient was on gabapentin. (10) Anemia, chronic disease: Code(s): D63.8 - Anemia in other chronic diseases classified elsewhere Status: Chronic Assessment and Plan: Unable to determine patient's baseline. But patient is end-stage renal disease. H&H is 9.7 and 33.6. Please continue to monitor. This diagnosis was listed in his chart from the halfway. (11) Cirrhosis: Code(s): K74.60 - Unspecified cirrhosis of liver Status: Chronic Assessment and Plan: Chronic (12) Depression: Code(s): F32.9 - Major depressive disorder, single episode, unspecified Status: Chronic Assessment and Plan: Continue with home medications. Subjective Date/time seen: 02/14/21 15:08 02/13 Interval history, patient is quite somnolent unable to provide any history review of symptom, admitted for chest pain EKG showed bradycardia patient is on metoprolol and diltiazem, will hold diltiazem continue metoprolol and monitor to further evaluate cardiac echo is ordered will follow-u
[2021-02-14] MEDS: MORPHINE SULFATE (*CRX) 2 MG/ML INJ IV PUSH (15:34)
--- NOTE | 2021-02-14 16:11 | PM.CNCAR ---
Assessment and Plan Assessment and plan (1) Elevated troponin: Code(s): R77.8 - Other specified abnormalities of plasma proteins Status: Acute Assessment and Plan: Mild and flat. Probably related to ESRD. No symptoms to suggest ACS. EKG is nonspecific. Echo showed no wall motion abnormalities with EF 55-60%. No further cardiac workup is needed. (2) Hypertension: Code(s): I10 - Essential (primary) hypertension Status: Chronic Assessment and Plan: Stable. Stopped Diltiazem due to mild bradycardia and he is on Metoprolol tartate 100 mg BID. Monitor BP. (3) Hyperlipidemia: Code(s): E78.5 - Hyperlipidemia, unspecified Status: Chronic Assessment and Plan: On Atorvastatin. (4) End stage renal disease on dialysis: Code(s): N18.6 - End stage renal disease; Z99.2 - Dependence on renal dialysis Status: Chronic History of Present Illness History of Present Illness Consult date/time: 02/14/21 16:11 Reason for consult: Elevated troponin. 60 yr old man presented from [facility] for chest pain. He has a history of ESRD on HD on /W/, Dyslipidemia, hypertension. He is normally only oriented x2. Since being in hospital and currently he denies having chest pains. States he can walk probably 1 block but has not tried to do so. Denies sob, orthopnea, PND, edema, dizziness, palpitations. Troponin 0.04, then 0.043, then 0.046. CXR is OK. Echo showed EF 55-60%, mild LVH, mod LAE, mild RVE/dysfunction. EKG Sinus bradycardia at 56 bpm, IVCD, LVH, PRWP, borderline T wave in inferior leads. Reason For Visit: Elevated troponin Review of Systems Review of Systems: All systems reviewed & are unremarkable except as noted in HPI and below Constitutional: Constitutional: Reports as per HPI, Denies chills and Denies fever(s) Cardiovascular: Cardiovascular: Reports as per HPI, Denies chest pain, Denies irregular heart rhythm, Denies leg edema and Denies lightheadedness Respiratory: Respiratory: Reports as per HPI and Denies dyspnea Gastrointestinal: Gastrointestinal: Reports as per HPI and Denies abdominal pain Genitourinary: Genitourinary: Reports as per HPI and Denies dysuria Musculoskeletal: Musculoskeletal: Reports as per HPI Neurologic: Reports as per HPI, Denies dizziness and Denies syncope [facility] Past Medical History Medical History (Updated 02/13/21 @ 18:21 by Deepti Torrez MD) Acute CVA (cerebrovascular accident) Anemia, chronic disease BPH (benign prostatic hyperplasia) Chest pain Cirrhosis Depression Diabetes mellitus End stage renal disease on dialysis On dialysis Thursday and Thursday G tube feedings No longer has a G-tube subsequently removed. Gastroesophageal reflux disease Gout Hemiparesis Hyperlipidemia Hypertension Hypothyroidism Neuropathy Surgical History Surgical History (Updated 02/12/21 @ 21:19 by Blanche Mills NP) History of abdominal surgery Family History Family History (Updated 02/12/21 @ 21:26 by Blanche Mills NP) Unknown Unknown family medical history Social History Social History (Updated 02/12/21 @ 21:27 by Blanche Mills NP) Social History: The patient has a Terri listed as his power county attorney. The patient is listed as a full code. The patient also has a listed. The patient is from [facility]. Smoking status: Smoker, status unknown Spiritual care concerns: No Meds Home Medications and Allergies Home Medications Medication Instructions Recorded Confirmed Type Lactobacillus acidophilus 1 tablet PO DAILY 02/12/21 02/12/21 History [Acidophilus] aspirin 81 mg PO DAILY 02/12/21 02/12/21 History atorvastatin 10 mg PO HS 02/12/21 02/12/21 History clopidogrel [Plavix] 75 mg PO DAILY 02/12/21 02/12/21 History darbepoetin yvette in polysorbat 100 mcg SUBCUT WEEKLY 02/12/21 02/12/21 History [Aranesp SureClick (polysorbat)] diltiazem HCl 60 mg PO Q
[2021-02-14] MEDS: LIDOCAINE 5% PATCH 3 PATCH TRANSDERM (17:27)
[2021-02-14 17:48] LABS: Glucose Point of Care 95 mg/dl (65-105)
[2021-02-14 21:07] LABS: Glucose Point of Care 84 mg/dl (65-105)
[2021-02-15] VITALS (22 sets, daily range): BP systolic 146–175; BP diastolic 59–89; PULSE 53–72; RESP 16–18; TEMP 36.1–37; O2SAT 94–100
[2021-02-15 05:57] LABS: Hematocrit 31.9 % (42.0-52.0); Hemoglobin 9.3 g/dL (14.0-18.0); Mean Corpuscular HGB Conc 29.2 g/dl (32-36); Mean Corpuscular Hemoglobin 29.1 pg (26-34); Mean Corpuscular Volume 99.7 fl (80-100); Mean Platelet Volume 11.6 fl (7.4-10.4); Platelet Count Result 177 k/mm3 (150-375); Red Cell Distribution Width 15.9 % (11.5-14.5); White Blood Count 4.5 K/mm3 (4.5-10.0)
[2021-02-15 06:10] LABS: Albumin Level 3.5 g/dL (3.5-5.1); Anion Gap 10 mmol/L (8-16); Blood Urea Nitrogen 21 mg/dL (9-20); Carbon Dioxide 31 mmol/L (22-30); Chloride 100 mmol/L (98-107); Estimated CRCL calculation 17 ml/min; Estimated Glomerular Filt Rate 18; Glucose 76 mg/dL (65-110); Magnesium 1.9 mg/dL (1.6-2.3); Phosphorus 4.7 mg/dL (2.5-4.5); Potassium 3.6 mmol/L (3.4-5.0); Sodium 141 mmol/L (137-145)
[2021-02-15] MEDS: DEXTROSE 50% 25 GM/50 ML SYRINGE IV PUSH ×2 (08:19→21:49)
--- NOTE | 2021-02-15 08:33 | PM.PNCARD ---
Progress Note: A&P Assessment and Plan (1) Elevated troponin: Code(s): R77.8 - Other specified abnormalities of plasma proteins Status: Acute Assessment and Plan: Mild and flat. Probably related to ESRD. No symptoms to suggest ACS. EKG is nonspecific. Echo showed no wall motion abnormalities with EF 55-60%. No further cardiac workup is needed. (2) Hypertension: Code(s): I10 - Essential (primary) hypertension Status: Chronic Assessment and Plan: High. Stopped Diltiazem due to mild bradycardia and he is on Metoprolol tartate 100 mg BID. Start Amlodipine 10 mg daily. Change Metoprolol to Coreg 25 mg BID. Monitor BP. (3) Hyperlipidemia: Code(s): E78.5 - Hyperlipidemia, unspecified Status: Chronic Assessment and Plan: On Atorvastatin. (4) End stage renal disease on dialysis: Code(s): N18.6 - End stage renal disease; Z99.2 - Dependence on renal dialysis Status: Chronic Subjective Date/time seen: 02/15/21 08:33 Denies chest pain or sob. No dizziness. Exam Const: General: cooperative, healthy appearing and comfortable Resp: Auscultation: clear to auscultation bilaterally, no crackles, no rales, no rhonchi and no wheezes Cardio: Jugular venous distension: no JVD Rate: regular rate Rhythm: regular rhythm Heart sounds: no murmurs GI: GI Palp: Yes abdominal tenderness and Yes Soft to palpation Neuro: General: oriented to person, oriented to place and oriented to time Extrem: Right lower extremity: no edema Left lower extremity: no edema Objective Data Vital Signs Vital Signs: Vital Signs - 24 hr 02/14/21 09:59 02/14/21 10:00 02/14/21 12:00 Temperature 97.8 F Pulse Rate 48 L 47 L 48 L Respiratory Rate 18 Blood Pressure 163/80 H Pulse Oximetry 100 02/14/21 14:00 02/14/21 16:00 02/14/21 18:00 Temperature 97.4 F L Pulse Rate 55 L 56 L 51 L Respiratory Rate 14 Blood Pressure 152/72 H Pulse Oximetry 98 02/14/21 19:46 02/14/21 20:00 02/14/21 22:00 Temperature 97.2 F L Pulse Rate 90 56 L 60 Respiratory Rate 18 Blood Pressure 132/81 Pulse Oximetry 100 02/15/21 00:00 02/15/21 02:00 02/15/21 04:00 Temperature 96.9 F L Pulse Rate 57 L 53 L 55 L Respiratory Rate 16 18 Blood Pressure 162/72 H 161/81 H Pulse Oximetry 98 99 02/15/21 06:00 02/15/21 08:14 Temperature 98.3 F Pulse Rate 59 L 60 Respiratory Rate 16 Blood Pressure 161/66 H Pulse Oximetry 99 Intake/Output Intake/Output: Intake & Output 02/12/21 02/13/21 02/14/21 02/15/21 23:59 23:59 23:59 23:59 Intake Total 60 0 Output Total 1000 0 0 Balance -940 0 0 Meds/Results Medications: Active Medications Generic Name Dose Route Start Last Admin Trade Name Freq PRN Reason Stop Dose Admin Acetaminophen 650 mg 02/12/21 17:52 Acetaminophen 325 Mg Tablet PO Q4H PRN Mild Pain (1-3) Hydrocodone Bitart/Acetaminophen 1 tab 02/13/21 06:00 02/15/21 05:30 Hydrocodone/Acetaminophen (*Crx) 7.5-325 Mg Tablet PO Not Given Q8H SAM Al Hydrox/Mg Hydrox/Simethicone 30 ml 02/12/21 17:52 Mag Hydrox/Al Hydrox/Simeth 30 Ml Udc PO Q6H PRN Indigestion Aspirin 81 mg 02/13/21 09:00 02/14/21 10:02 Aspirin 81 Mg Enteric Tablet PO 81 mg QAM SAM Administration Atorvastatin Calcium 10 mg 02/12/21 23:05 02/14/21 21:13 Atorvastatin 10 Mg Tablet PO Not Given HS SAM Clopidogrel Bisulfate 75 mg 02/13/21 09:00 02/14/21 10:02 Clopidogrel Bisulfate 75 Mg Tablet PO 75 mg DAILY SAM Administration Dextrose 12.5 gm 02/12/21 21:03 02/15/21 08:19 Dextrose 50% 25 Gm/50 Ml Syringe IV PUSH 12.5 gm PRN PRN Administration Hypoglycemia Protocol Epoetin Tarik-epbx 10,000 units 02/15/21 19:24 Epoetin Tarik-Epbx 10,000 Units/Ml Vial IV PUSH 02/15/21 19:25 ONCE ONE Gabapentin 100 mg 02/13/21 09:00 02/14/21 15:29 Gabapentin 100 Mg Capsule PO Not Given
--- NOTE | 2021-02-15 08:48 | PCSTNOTE ---
Please refer to the Modified Barium Swallow Evaluation in the EMR.
[2021-02-15 10:34] LABS: Glucose Point of Care 121 mg/dl (65-105)
[2021-02-15 10:34] LABS: Glucose Point of Care 63 mg/dl (65-105)
[2021-02-15] MEDS: LIDOCAINE 5% PATCH 2 PATCH TRANSDERM (10:41)
[2021-02-15] MEDS: EPOETIN ALFA-EPBX 10,000 UNITS/ML VIAL 10000 UNITS IV PUSH (11:45)
--- NOTE | 2021-02-15 12:52 | PM.PNNEP ---
Progress Note: A&P Assessment and Plan (1) End stage renal disease: Code(s): N18.6 - End stage renal disease Status: Chronic Assessment and Plan: HD today and continue M/W/F schedule while hospitalized electrolytes, volume status, and clearance acceptable (2) Chest pain: Code(s): R07.9 - Chest pain, unspecified Status: Acute Assessment and Plan: no further episodes troponins flat consistent with his CKD/ESRD issues with bradycardia -- Cardiology following (3) Anemia: Code(s): D64.9 - Anemia, unspecified Status: Chronic Assessment and Plan: presumably related to ESRD Epogen with HD follow trend of H/H (4) Hypertension: Code(s): I10 - Essential (primary) hypertension Status: Chronic Assessment and Plan: fluctuating follow trend of hemodynamics (5) Diabetes mellitus: Code(s): E11.9 - Type 2 diabetes mellitus without complications Status: Chronic Assessment and Plan: follow accuchecks glycemic control Will continue to follow. Subjective Date/time seen: 02/15/21 12:52 Tolerating dialysis at the time of my visit (seen on HD at 12:40pm); no apparent distress noted but patient not very communicative; no issues/events overnight or earlier this morning. Exam Narrative: General: WD/WN AA male in NAD Heart: normal S1 and S2; no rub Lungs: clear to auscultation Abdomen: soft, nontender, nondistended, positive bowel sounds Extremities: no cyanosis or clubbing; no edema Skin: warm and dry Objective Data Vital Signs Vital Signs: Vital Signs Temp Pulse Resp BP Pulse Ox 02/15/21 12:45 64 157/81 H 02/15/21 11:45 66 174/89 H 02/15/21 11:15 55 L 175/82 H 02/15/21 11:00 36.7 C 57 L 18 169/82 H 02/15/21 08:14 36.8 C 60 16 161/66 H 99 02/15/21 06:00 59 L 02/15/21 04:00 55 L 18 161/81 H 99 02/15/21 02:00 53 L 02/15/21 00:00 36.1 C L 57 L 16 162/72 H 98 02/14/21 22:00 60 02/14/21 20:00 56 L 02/14/21 19:46 36.2 C L 90 18 132/81 100 02/14/21 18:00 51 L 02/14/21 16:00 36.3 C L 56 L 14 152/72 H 98 02/14/21 14:00 55 L Intake/Output Intake/Output: Intake & Output 02/12/21 02/13/21 02/14/21 02/15/21 23:59 23:59 23:59 23:59 Intake Total 60 0 Output Total 1000 0 0 Balance -940 0 0 Meds/Results Medications: Active Medications Generic Name Dose Route Start Last Admin Trade Name Freq PRN Reason Stop Dose Admin Acetaminophen 650 mg 02/12/21 17:52 Acetaminophen 325 Mg Tablet PO Q4H PRN Mild Pain (1-3) Hydrocodone Bitart/Acetaminophen 1 tab 02/13/21 06:00 02/15/21 05:30 Hydrocodone/Acetaminophen (*Crx) 7.5-325 Mg Tablet PO Not Given Q8H SAM Al Hydrox/Mg Hydrox/Simethicone 30 ml 02/12/21 17:52 Mag Hydrox/Al Hydrox/Simeth 30 Ml Udc PO Q6H PRN Indigestion Amlodipine Besylate 10 mg 02/15/21 09:00 Amlodipine Besylate 5 Mg Tablet PO QAM SAM Aspirin 81 mg 02/13/21 09:00 02/14/21 10:02 Aspirin 81 Mg Enteric Tablet PO 81 mg QAM SAM Administration Atorvastatin Calcium 10 mg 02/12/21 23:05 02/14/21 21:13 Atorvastatin 10 Mg Tablet PO Not Given HS SAM Carvedilol 25 mg 02/15/21 09:00 Carvedilol 25 Mg Tablet PO Q12HR SAM Clopidogrel Bisulfate 75 mg 02/13/21 09:00 02/14/21 10:02 Clopidogrel Bisulfate 75 Mg Tablet PO 75 mg DAILY SAM Administration Dextrose 12.5 gm 02/12/21 21:03 02/15/21 08:19 Dextrose 50% 25 Gm/50 Ml Syringe IV PUSH 12.5 gm PRN PRN Administration Hypoglycemia Protocol Epoetin Tarik-epbx 10,000 units 02/15/21 19:24 Epoetin Tarik-Epbx 10,000 Units/Ml Vial IV PUSH 02/15/21 19:25 ONCE ONE Gabapentin 100 mg 02/13/21 09:00 02/14/21 15:29 Gabapentin 100 Mg Capsule PO Not Given TID SAM Glucagon 1 mg 02/12/21 21:03 Glucagon For Inj 1 Mg Vial IM AR
--- NOTE | 2021-02-15 14:27 | PCDIET ---
Nutrition Follow-Up Complete: Nutrition Diagnosis: Inadequate oral intake related to diet order as evidenced by NPO. Nutrition Goal: Patient to meet estimated nutritional needs. Goal not met. Patient had MBS today with DIRECT CASTING OPERATOR recommendation for non-oral feedings. Recommend Nepro beginning at 20mL/hr once gastric access achieved. Recommend advancing by 10mL/hr every 8 hours, as tolerated, to goal of 50mL/hr. Given 22 hours daily infusion, this would provide 1980kcal, 89g protein and 799mL free water. Suggest 30mL water flush every 4 hours. Last recorded weight is 86.4 kg which is increased from last review. Bowel Motility: Last documented BM on 02/13/21 x 1. Labs Reviewed: RBC (3.20), Hgb (9.3), Hct (31.9), Glu (121), BUN (21), Cr (4.10), PO4 (4.7) Meds Noted: Retacrit Additional Notes: Oral meds not administered today due to NPO status. Noted patient had 1L UF on 02/13/21. Buttocks macerated. Will continue to monitor with same goal. Nutrition Monitoring and Evaluation: Follow up every 3 days.
--- NOTE | 2021-02-15 15:49 | PM.IMPN ---
Progress Note: A&P Assessment and Plan (1) Chest pain: Code(s): R07.9 - Chest pain, unspecified Status: Acute Assessment and Plan: The patient is no longer complaining of chest pain. The patient is in sinus bradycardia 02/15/21 15:49 02/13 Interval history, patient is quite somnolent unable to provide any history review of symptom, admitted for chest pain EKG showed bradycardia patient is on metoprolol and diltiazem, will hold diltiazem continue metoprolol and monitor to further evaluate cardiac echo is ordered will follow-up, once patient clinically stable will have PT OT evaluate the and further recommendation to follow. patient with end-stage renal disease on hemodialysis seen by Nephrology and will have scheduled dialysis, will continue to monitor 02/14 Interval history patient still quite somnolent and unable to provide any review of symptom other than complaints of pain in his back, patient is admitted with complaint of chest pain his tropes are slightly elevate and flat most likely secondary to end-stage renal disease on hemodialysis, is found to have bradycardia held diltiazem on 02/13 however this morning his heart rate is 48, will hold metoprolol, cardiac echo is ordered and pending, will consult injection mold tooling technician for further recommendation, will continue to monitor. 02/15 Interval history, patient with bradycardia DC diltiazem and metoprolol patient still still with bradycardia seen by cardiology added amlodipine 10 mg q.day and Coreg 25 mg b.i.d. however patient is having difficulty swallow had a modified swallow study today and failed, I spoke with the patient got the consent for NG tube will place and oral medications and feeding, will continue to monitor. (2) Elevated troponin: Code(s): R77.8 - Other specified abnormalities of plasma proteins Status: Acute Assessment and Plan: The patient is not having any further chest pain. This could be related to his end-stage renal disease. Appears to be level be level (3) End stage renal disease on dialysis: Code(s): N18.6 - End stage renal disease; Z99.2 - Dependence on renal dialysis Status: Chronic Assessment and Plan: Nephrology has been consulted. He has dialysis on Thursday. (4) Diabetes mellitus: Code(s): E11.9 - Type 2 diabetes mellitus without complications Status: Chronic Assessment and Plan: Accu-Cheks AC and HS. Check A1c. Sliding scale insulin (5) Hyperlipidemia: Code(s): E78.5 - Hyperlipidemia, unspecified Status: Chronic Assessment and Plan: Continue with atorvastatin (6) Hypertension: Code(s): I10 - Essential (primary) hypertension Status: Chronic Assessment and Plan: Continue with losartan. (7) BPH (benign prostatic hyperplasia): Code(s): N40.0 - Benign prostatic hyperplasia without lower urinary tract symptoms Status: Chronic Assessment and Plan: Continue with home medications. (8) Hypothyroidism: Code(s): E03.9 - Hypothyroidism, unspecified Status: Chronic Assessment and Plan: Check thyroid level and continue with home medication. (9) Neuropathy: Code(s): G62.9 - Polyneuropathy, unspecified Status: Chronic Assessment and Plan: According to the senior living sheets the patient was on gabapentin. (10) Anemia, chronic disease: Code(s): D63.8 - Anemia in other chronic diseases classified elsewhere Status: Chronic Assessment and Plan: Unable to determine patient's baseline. But patient is end-stage renal disease. H&H is 9.7 and 33.6. Please continue to monitor. This diagnosis was listed in his chart from the senior living. (11) Cirrhosis: Code(s): K74.60 - Unspecified cirrhosis of liver Status: Chronic Assessment and Plan: Chronic (12) Depression: Code(s): F32.9 - Major depressive disorder, single episode, unspecifie
[2021-02-15] MEDS: MORPHINE SULFATE (*CRX) 2 MG/ML INJ IV PUSH ×2 (15:54→21:52)
[2021-02-15 17:27] LABS: Glucose Point of Care 73 mg/dl (65-105)
--- NOTE | 2021-02-15 20:13 | PC.NURSE ---
Hold off on NG tube for today per Dr. Harris. Dr. Harris stated he will re-address the issue tomorrow and hopefully the patient is more agreeable to this option. If not, stated he will have to discuss a PEG tube with the patient and his .
[2021-02-15 21:51] LABS: Glucose Point of Care 63 mg/dl (65-105)
[2021-02-15 22:25] LABS: Glucose Point of Care 110 mg/dl (65-105)
[2021-02-15] MEDS: DEXTROSE 10% 1,000 ML 50 ML IV CONT (22:57)
[2021-02-16] VITALS (12 sets, daily range): BP systolic 150–174; BP diastolic 63–76; PULSE 62–76; RESP 12–16; TEMP 36.1–36.9; O2SAT 96–100
[2021-02-16 00:29] LABS: Glucose Point of Care 92 mg/dl (65-105)
[2021-02-16] MEDS: DEXTROSE 50% 25 GM/50 ML SYRINGE IV PUSH (00:48)
[2021-02-16] MEDS: GLUCAGON FOR INJ 1 MG VIAL IM (00:51)
[2021-02-16 04:11] LABS: Glucose Point of Care 186 mg/dl (65-105)
[2021-02-16 05:42] LABS: Glucose Point of Care 91 mg/dl (65-105)
[2021-02-16] MEDS: LEVOTHYROXINE SODIUM INJ 100 MCG/5 ML VIAL 68.5 MCG IV PUSH (06:03)
[2021-02-16 06:08] LABS: Hematocrit 32.2 % (42.0-52.0); Hemoglobin 9.3 g/dL (14.0-18.0); Mean Corpuscular HGB Conc 28.9 g/dl (32-36); Mean Corpuscular Hemoglobin 28.2 pg (26-34); Mean Corpuscular Volume 97.6 fl (80-100); Mean Platelet Volume 11.2 fl (7.4-10.4); Platelet Count Result 185 k/mm3 (150-375); White Blood Count 4.7 K/mm3 (4.5-10.0)
[2021-02-16 06:16] LABS: Albumin Level 3.5 g/dL (3.5-5.1); Anion Gap 10 mmol/L (8-16); Blood Urea Nitrogen 14 mg/dL (9-20); Carbon Dioxide 30 mmol/L (22-30); Chloride 104 mmol/L (98-107); Estimated CRCL calculation 23 ml/min; Estimated Glomerular Filt Rate 26; Glucose 113 mg/dL (65-110); Magnesium 1.9 mg/dL (1.6-2.3); Phosphorus 3.5 mg/dL (2.5-4.5); Potassium 3.6 mmol/L (3.4-5.0); Sodium 144 mmol/L (137-145)
[2021-02-16] MEDS: hydrALAZINE HCL 20 MG/ML VIAL 10 MG IV PUSH ×2 (08:39→20:16)
[2021-02-16] MEDS: LIDOCAINE 5% PATCH 2 PATCH TRANSDERM (08:41)
--- NOTE | 2021-02-16 09:10 | PM.PNCARD ---
Progress Note: A&P Assessment and Plan (1) Elevated troponin: Code(s): R77.8 - Other specified abnormalities of plasma proteins Status: Acute Assessment and Plan: Mild and flat. Probably related to ESRD. No symptoms to suggest ACS. EKG is nonspecific. Echo showed no wall motion abnormalities with EF 55-60%. No further cardiac workup is needed. (2) Hypertension: Code(s): I10 - Essential (primary) hypertension Status: Chronic Assessment and Plan: High. Stopped Diltiazem due to mild bradycardia. On Amlodipine 10 mg daily and Coreg 25 mg BID, Losartan. Add Hydralazine 25 mg TID. Apparently he is NPO incuding meds for now due to aspiration. Will give Hydralazine 10 mg IV q 4 hrs prn SBP>160 mmHg. Monitor BP. (3) Hyperlipidemia: Code(s): E78.5 - Hyperlipidemia, unspecified Status: Chronic Assessment and Plan: On Atorvastatin. (4) End stage renal disease on dialysis: Code(s): N18.6 - End stage renal disease; Z99.2 - Dependence on renal dialysis Status: Chronic Subjective Date/time seen: 02/16/21 09:10 Denies chest pain or sob. He failed his swallowing test. Exam Const: General: cooperative, healthy appearing and comfortable Resp: Auscultation: clear to auscultation bilaterally, no crackles, no rales, no rhonchi and no wheezes Cardio: Jugular venous distension: no JVD Rate: regular rate Rhythm: regular rhythm Heart sounds: no murmurs GI: GI Palp: Yes abdominal tenderness and Yes Soft to palpation Neuro: General: oriented to person, oriented to place and oriented to time Extrem: Right lower extremity: no edema Left lower extremity: no edema Objective Data Vital Signs Vital Signs: Vital Signs - 24 hr 02/15/21 10:00 02/15/21 11:00 02/15/21 11:15 Temperature 98.0 F Pulse Rate 58 L 57 L 55 L Respiratory Rate 18 Blood Pressure 169/82 H 175/82 H Pulse Oximetry 02/15/21 11:45 02/15/21 12:00 02/15/21 12:45 Temperature Pulse Rate 66 59 L 64 Respiratory Rate Blood Pressure 174/89 H 157/81 H Pulse Oximetry 02/15/21 13:30 02/15/21 14:00 02/15/21 14:15 Temperature Pulse Rate 69 65 68 Respiratory Rate Blood Pressure 163/85 H 163/79 H 156/81 H Pulse Oximetry 02/15/21 14:36 02/15/21 16:00 02/15/21 17:00 Temperature 97.8 F 98.5 F 97.7 F Pulse Rate 70 72 71 Respiratory Rate 18 18 16 Blood Pressure 161/79 H 158/76 H 146/67 H Pulse Oximetry 99 100 02/15/21 18:00 02/15/21 19:48 02/15/21 20:00 Temperature 97.9 F Pulse Rate 68 65 68 Respiratory Rate 16 16 Blood Pressure 149/59 H Pulse Oximetry 94 94 02/15/21 22:00 02/16/21 00:00 02/16/21 02:00 Temperature 97.6 F Pulse Rate 67 64 69 Respiratory Rate 16 Blood Pressure 157/63 H Pulse Oximetry 97 02/16/21 04:00 02/16/21 05:54 02/16/21 08:00 Temperature 98.2 F 98.5 F Pulse Rate 62 62 65 Respiratory Rate 16 16 Blood Pressure 163/76 H 174/73 H Pulse Oximetry 100 100 Intake/Output Intake/Output: Intake & Output 02/13/21 02/14/21 02/15/21 02/16/21 23:59 23:59 23:59 23:59 Intake Total 60 60 100 Output Total 1000 0 0 0 Balance -940 0 60 100 Meds/Results Medications: Active Medications Generic Name Dose Route Start Last Admin Trade Name Freq PRN Reason Stop Dose Admin Acetaminophen 650 mg 02/12/21 17:52 Acetaminophen 325 Mg Tablet PO Q4H PRN Mild Pain (1-3) Hydrocodone Bitart/Acetaminophen 1 tab 02/13/21 06:00 02/16/21 05:12 Hydrocodone/Acetaminophen (*Crx) 7.5-325 Mg Tablet PO Not Given Q8H SAM Al Hydrox/Mg Hydrox/Simethicone 30 ml 02/12/21 17:52 Mag Hydrox/Al Hydrox/Simeth 30 Ml Udc PO Q6H PRN Indigestion Amlodipine Besylate 10 mg 02/15/21 09:00 02/16/21 08:35 Amlodipine Besylate 5 Mg Tablet PO Not Given QAM SAM Aspirin 81 mg 02/13/21 09:00 02/16/21 08:35 Aspirin 81 Mg Enteric Tablet PO Not Given QAM [facility] Atorvastatin Calcium 10 mg 09
[2021-02-16 09:39] LABS: Glucose Point of Care 76 mg/dl (65-105)
[2021-02-16] MEDS: MORPHINE SULFATE (*CRX) 2 MG/ML INJ IV PUSH (10:34)
--- NOTE | 2021-02-16 11:32 | PM.PNNEP ---
Progress Note: A&P Assessment and Plan (1) End stage renal disease: Code(s): N18.6 - End stage renal disease Status: Chronic Assessment and Plan: HD yesterday and continue M/W/ schedule while hospitalized electrolytes, volume status, and clearance acceptable (2) Chest pain: Code(s): R07.9 - Chest pain, unspecified Status: Acute Assessment and Plan: no further episodes troponins flat consistent with his CKD/ESRD issues with bradycardia -- Cardiology following (3) Anemia: Code(s): D64.9 - Anemia, unspecified Status: Chronic Assessment and Plan: presumably related to ESRD Epogen with HD follow trend of H/H (4) Hypertension: Code(s): I10 - Essential (primary) hypertension Status: Chronic Assessment and Plan: fluctuating follow trend of hemodynamics (5) Diabetes mellitus: Code(s): E11.9 - Type 2 diabetes mellitus without complications Status: Chronic Assessment and Plan: follow accuchecks glycemic control Will continue to follow. Subjective Date/time seen: 02/16/21 11:32 Tolerated hemodialysis treatment yesterday without any issue or problems; some concerns regarding swallowing of medications so NG tube placed but patient has been intolerant of it (he keeps pulling it out); BP has been fluctuating due to inability take oral medications; no apparent distress voiced. Exam Narrative: General: AA male laying in bed in NAD Heart: normal S1 and S2; no rub Lungs: clear to auscultation Abdomen: soft, nontender, nondistended, positive bowel sounds Extremities: no cyanosis or clubbing; no edema Skin: warm and intact Objective Data Vital Signs Vital Signs: Vital Signs Temp Pulse Resp BP Pulse Ox 02/16/21 08:00 36.9 C 65 16 174/73 H 100 02/16/21 05:54 62 02/16/21 04:00 36.8 C 62 16 163/76 H 100 02/16/21 02:00 69 02/16/21 00:00 36.4 C 64 16 157/63 H 97 02/15/21 22:00 67 02/15/21 20:00 68 16 94 02/15/21 19:48 36.6 C 65 16 149/59 H 94 02/15/21 18:00 68 02/15/21 17:00 36.5 C 71 16 146/67 H 100 02/15/21 16:00 36.9 C 72 18 158/76 H 99 02/15/21 14:36 36.6 C 70 18 161/79 H 02/15/21 14:15 68 156/81 H 02/15/21 14:00 65 163/79 H 02/15/21 13:30 69 163/85 H 02/15/21 12:45 64 157/81 H Intake/Output Intake/Output: Intake & Output 02/13/21 02/14/21 02/15/21 02/16/21 23:59 23:59 23:59 23:59 Intake Total 60 60 100 Output Total 1000 0 0 0 Balance -940 0 60 100 Meds/Results Medications: Active Medications Generic Name Dose Route Start Last Admin Trade Name Freq PRN Reason Stop Dose Admin Acetaminophen 650 mg 02/12/21 17:52 Acetaminophen 325 Mg Tablet PO Q4H PRN Mild Pain (1-3) Hydrocodone Bitart/Acetaminophen 1 tab 02/13/21 06:00 02/16/21 05:12 Hydrocodone/Acetaminophen (*Crx) 7.5-325 Mg Tablet PO Not Given Q8H SAM Al Hydrox/Mg Hydrox/Simethicone 30 ml 02/12/21 17:52 Mag Hydrox/Al Hydrox/Simeth 30 Ml Udc PO Q6H PRN Indigestion Amlodipine Besylate 10 mg 02/15/21 09:00 02/16/21 08:35 Amlodipine Besylate 5 Mg Tablet PO Not Given QAM SAM Aspirin 81 mg 02/13/21 09:00 02/16/21 08:35 Aspirin 81 Mg Enteric Tablet PO Not Given QAM SAM Atorvastatin Calcium 10 mg 02/12/21 23:05 02/15/21 21:36 Atorvastatin 10 Mg Tablet PO Not Given HS SAM Carvedilol 25 mg 02/15/21 09:00 02/16/21 08:35 Carvedilol 25 Mg Tablet PO Not Given Q12HR SAM Clopidogrel Bisulfate 75 mg 02/13/21 09:00 02/16/21 08:35 Clopidogrel Bisulfate 75 Mg Tablet PO Not Given DAILY SAM Dextrose 12.5 gm 02/12/21 21:03 02/15/21 21:49 Dextrose 50% 25 Gm/50 Ml Syringe IV PUSH 12.5 gm PRN PRN Administration Hypoglycemia Protocol Gabapentin 100 mg 02/13/21 09:00 02/16/21 08:35 Gabapentin 100 Mg Capsule PO Not Given
--- NOTE | 2021-02-16 13:03 | PM.IMPN ---
Progress Note: A&P Assessment and Plan (1) Chest pain: Code(s): R07.9 - Chest pain, unspecified Status: Acute Assessment and Plan: The patient is no longer complaining of chest pain. The patient is in sinus bradycardia 02/16/21 13:03 02/13 Interval history, patient is quite somnolent unable to provide any history review of symptom, admitted for chest pain EKG showed bradycardia patient is on metoprolol and diltiazem, will hold diltiazem continue metoprolol and monitor to further evaluate cardiac echo is ordered will follow-up, once patient clinically stable will have PT OT evaluate the and further recommendation to follow. patient with end-stage renal disease on hemodialysis seen by Nephrology and will have scheduled dialysis, will continue to monitor 02/14 Interval history patient still quite somnolent and unable to provide any review of symptom other than complaints of pain in his back, patient is admitted with complaint of chest pain his tropes are slightly elevate and flat most likely secondary to end-stage renal disease on hemodialysis, is found to have bradycardia held diltiazem on 02/13 however this morning his heart rate is 48, will hold metoprolol, cardiac echo is ordered and pending, will consult exhibit specialist for further recommendation, will continue to monitor. 02/15 Interval history, patient with bradycardia DC diltiazem and metoprolol patient still still with bradycardia seen by cardiology added amlodipine 10 mg q.day and Coreg 25 mg b.i.d. however patient is having difficulty swallow had a modified swallow study today and failed, I spoke with the patient got the consent for NG tube will place and oral medications and feeding, will continue to monitor. 02/16 Interval history, patient refused NG tube yesterday and did not receive any of his medication today his blood pressure is elevated, again spoke with the patient and he has agreed to place NG tube, will start his medications by NG tube and start feeding the patient, seen by Cardiology and will continue amlodipine 10 mg q.day, Coreg 25 mg b.i.d., losartan 50 mg q.day, will continue to monitor, will work with a speech therapy as well as PT OT and further recommendation to follow. (2) Elevated troponin: Code(s): R77.8 - Other specified abnormalities of plasma proteins Status: Acute Assessment and Plan: The patient is not having any further chest pain. This could be related to his end-stage renal disease. Appears to be level be level (3) End stage renal disease on dialysis: Code(s): N18.6 - End stage renal disease; Z99.2 - Dependence on renal dialysis Status: Chronic Assessment and Plan: Nephrology has been consulted. He has dialysis on Thursday. (4) Diabetes mellitus: Code(s): E11.9 - Type 2 diabetes mellitus without complications Status: Chronic Assessment and Plan: Accu-Cheks AC and HS. Check A1c. Sliding scale insulin (5) Hyperlipidemia: Code(s): E78.5 - Hyperlipidemia, unspecified Status: Chronic Assessment and Plan: Continue with atorvastatin (6) Hypertension: Code(s): I10 - Essential (primary) hypertension Status: Chronic Assessment and Plan: Continue with losartan. (7) BPH (benign prostatic hyperplasia): Code(s): N40.0 - Benign prostatic hyperplasia without lower urinary tract symptoms Status: Chronic Assessment and Plan: Continue with home medications. (8) Hypothyroidism: Code(s): E03.9 - Hypothyroidism, unspecified Status: Chronic Assessment and Plan: Check thyroid level and continue with home medication. (9) Neuropathy: Code(s): G62.9 - Polyneuropathy, unspecified Status: Chronic Assessment and Plan: According to the senior care sheets the patient was on gabapentin. (10) Anemia, chronic disease: Code(s): D63.8 - Anemia in other chronic diseases classifie
[2021-02-16] MEDS: HYDROcodone/acetaminophen (*CRX) 7.5-325 MG TABLET 1 TAB PO (13:14)
[2021-02-16] MEDS: SEVELAMER CARBONATE 800 MG TABLET PO (13:15)
[2021-02-16] MEDS: GABAPENTIN 100 MG CAPSULE PO (13:15)
[2021-02-16] MEDS: hydrALAZINE HCL 25 MG TABLET PO (13:16)
[2021-02-16 13:28] LABS: Glucose Point of Care 81 mg/dl (65-105)
[2021-02-16 16:55] LABS: Glucose Point of Care 84 mg/dl (65-105)
[2021-02-16 21:27] LABS: Glucose Point of Care 70 mg/dl (65-105)
--- NOTE | 2021-02-16 22:48 | PC.NURSE ---
This patient, Dave Lua, was transferred to room 312 on 02/16/21 at 2240. Personal belongings sent with patient. Report given to OANH Hidalgo. Appropriate documentation sent with patient.
[2021-02-17] MEDS: DEXTROSE 50% 25 GM/50 ML SYRINGE IV PUSH ×2 (01:41→09:12)
[2021-02-17 03:06] LABS: Glucose Point of Care 108 mg/dl (65-105)
[2021-02-17 03:06] LABS: Glucose Point of Care 64 mg/dl (65-105)
[2021-02-17 06:00] VITALS: BP 180/85; PULSE 73; RESP 18; TEMP 36.6; O2SAT 100
[2021-02-17] MEDS: hydrALAZINE HCL 20 MG/ML VIAL 10 MG IV PUSH ×2 (06:25→12:17)
[2021-02-17] MEDS: LEVOTHYROXINE SODIUM INJ 100 MCG/5 ML VIAL 68.5 MCG IV PUSH (06:26)
[2021-02-17 06:45] LABS: Hematocrit 34.6 % (42.0-52.0); Hemoglobin 10.2 g/dL (14.0-18.0); Mean Corpuscular HGB Conc 29.5 g/dl (32-36); Mean Corpuscular Hemoglobin 29.1 pg (26-34); Mean Corpuscular Volume 98.9 fl (80-100); Mean Platelet Volume 11.3 fl (7.4-10.4); Platelet Count Result 182 k/mm3 (150-375); Red Cell Distribution Width 16.3 % (11.5-14.5); White Blood Count 4.5 K/mm3 (4.5-10.0)
[2021-02-17 06:54] LABS: Albumin Level 3.6 g/dL (3.5-5.1); Anion Gap 12 mmol/L (8-16); Blood Urea Nitrogen 20 mg/dL (9-20); Calcium 9.2 mg/dL (8.4-10.2); Carbon Dioxide 28 mmol/L (22-30); Chloride 105 mmol/L (98-107); Estimated CRCL calculation 18 ml/min; Estimated Glomerular Filt Rate 19; Glucose 86 mg/dL (65-110); Magnesium 2.1 mg/dL (1.6-2.3); Phosphorus 4.1 mg/dL (2.5-4.5); Sodium 145 mmol/L (137-145)
[2021-02-17 07:37] LABS: Glucose Point of Care 76 mg/dl (65-105)
--- NOTE | 2021-02-17 09:21 | PM.PNCARD ---
Progress Note: A&P Assessment and Plan (1) Elevated troponin: Code(s): R77.8 - Other specified abnormalities of plasma proteins Status: Acute Assessment and Plan: Mild and flat. Probably related to ESRD. No symptoms to suggest ACS. EKG is nonspecific. Echo showed no wall motion abnormalities with EF 55-60%. No further cardiac workup is needed. (2) Hypertension: Code(s): I10 - Essential (primary) hypertension Status: Chronic Assessment and Plan: High but he is not getting his PO meds due to NPO for aspiration. Stopped Diltiazem due to mild bradycardia. On Amlodipine 10 mg daily and Coreg 25 mg BID, Losartan. Add Hydralazine 25 mg TID. Apparently he is NPO incuding meds for now due to aspiration. Will give Hydralazine 10 mg IV q 4 hrs prn SBP>150 mmHg. Monitor BP. (3) Hyperlipidemia: Code(s): E78.5 - Hyperlipidemia, unspecified Status: Chronic Assessment and Plan: On Atorvastatin. (4) End stage renal disease on dialysis: Code(s): N18.6 - End stage renal disease; Z99.2 - Dependence on renal dialysis Status: Chronic Subjective Date/time seen: 02/17/21 09:21 Denies chest pain or sob. He was refusing NG tube yesterday. Exam Const: General: cooperative, healthy appearing and comfortable Resp: Auscultation: clear to auscultation bilaterally, no crackles, no rales, no rhonchi and no wheezes Cardio: Jugular venous distension: no JVD Rate: regular rate Rhythm: regular rhythm Heart sounds: no murmurs GI: GI Palp: Yes abdominal tenderness and Yes Soft to palpation Neuro: General: oriented to person, oriented to place and oriented to time Extrem: Right lower extremity: no edema Left lower extremity: no edema Objective Data Vital Signs Vital Signs: Vital Signs - 24 hr 02/16/21 10:00 02/16/21 12:00 02/16/21 14:00 Temperature 98 F Pulse Rate 75 70 76 Respiratory Rate 12 Blood Pressure 174/74 H Pulse Oximetry 100 02/16/21 16:00 02/16/21 19:52 02/16/21 20:00 Temperature 97.7 F 97.2 F L Pulse Rate 73 65 65 Respiratory Rate 16 16 16 Blood Pressure 169/76 H 166/70 H Pulse Oximetry 100 96 96 02/16/21 22:45 02/17/21 06:00 Temperature 97.0 F L 97.9 F Pulse Rate 74 73 Respiratory Rate 16 18 Blood Pressure 150/73 H 180/85 H Pulse Oximetry 97 100 Intake/Output Intake/Output: Intake & Output 02/14/21 02/15/21 02/16/21 02/17/21 23:59 23:59 23:59 23:59 Intake Total 60 100 Output Total 0 0 0 0 Balance 0 60 100 0 Meds/Results Medications: Active Medications Generic Name Dose Route Start Last Admin Trade Name Freq PRN Reason Stop Dose Admin Acetaminophen 650 mg 02/12/21 17:52 Acetaminophen 325 Mg Tablet PO Q4H PRN Mild Pain (1-3) Hydrocodone Bitart/Acetaminophen 1 tab 02/13/21 06:00 02/17/21 06:25 Hydrocodone/Acetaminophen (*Crx) 7.5-325 Mg Tablet PO Not Given Q8H SAM Al Hydrox/Mg Hydrox/Simethicone 30 ml 02/12/21 17:52 Mag Hydrox/Al Hydrox/Simeth 30 Ml Udc PO Q6H PRN Indigestion Amlodipine Besylate 10 mg 02/15/21 09:00 02/16/21 08:35 Amlodipine Besylate 5 Mg Tablet PO Not Given QAM SAM Aspirin 81 mg 02/13/21 09:00 02/16/21 08:35 Aspirin 81 Mg Enteric Tablet PO Not Given QAM SAM Atorvastatin Calcium 10 mg 02/12/21 23:05 02/16/21 20:14 Atorvastatin 10 Mg Tablet PO Not Given HS SAM Carvedilol 25 mg 02/15/21 09:00 02/16/21 20:14 Carvedilol 25 Mg Tablet PO Not Given Q12HR SAM Clopidogrel Bisulfate 75 mg 02/13/21 09:00 02/16/21 08:35 Clopidogrel Bisulfate 75 Mg Tablet PO Not Given DAILY SAM Dextrose 12.5 gm 02/12/21 21:03 02/17/21 09:12 Dextrose 50% 25 Gm/50 Ml Syringe IV PUSH 12.5 gm PRN PRN Administration Hypoglycemia Protocol Gabapentin 100 mg 02/13/21 09:00 02/16/21 17:02 Gabapentin 100 Mg Capsule PO Not Given TID ASM Glucagon 1 mg 02/12/21 21:03 Glucagon For Inj 1 Mg Via
[2021-02-17 10:13] VITALS: PULSE 70
[2021-02-17] MEDS: carvediloL 25 MG TABLET PO (10:13)
[2021-02-17] MEDS: CLOPIDOGREL BISULFATE 75 MG TABLET PO (10:13)
[2021-02-17] MEDS: SEVELAMER CARBONATE 800 MG TABLET PO (10:13)
[2021-02-17] MEDS: amLODIPine BESYLATE 5 MG TABLET 10 MG PO (10:14)
[2021-02-17] MEDS: GABAPENTIN 100 MG CAPSULE PO (10:14)
[2021-02-17] MEDS: ACIDOPHILUS/BULGARICUS CHEWABLE TABLET 1 TABLET PO (10:15)
[2021-02-17] MEDS: ASPIRIN 81 MG ENTERIC TABLET PO (10:15)
[2021-02-17] MEDS: hydrALAZINE HCL 25 MG TABLET PO (10:15)
[2021-02-17] MEDS: LIDOCAINE 5% PATCH 2 PATCH TRANSDERM (10:15)
[2021-02-17] MEDS: LOSARTAN POTASSIUM 50 MG TABLET PO (10:17)
[2021-02-17] MEDS: PARoxetine 20 MG TABLET PO (10:17)
--- NOTE | 2021-02-17 10:53 | PC.NURSE ---
this nurse was able to get medications down NG tube this am. Pt pulled NG tube out at 1050. Dr. Harris made aware. MD stated will call .
[2021-02-17 12:08] LABS: Glucose Point of Care 93 mg/dl (65-105)
--- NOTE | 2021-02-17 12:09 | PM.PNNEP ---
Progress Note: A&P Assessment and Plan (1) End stage renal disease: Code(s): N18.6 - End stage renal disease Status: Chronic Assessment and Plan: HD tomorrow and continue M/W/F schedule while hospitalized electrolytes, volume status, and clearance acceptable (2) Chest pain: Code(s): R07.9 - Chest pain, unspecified Status: Acute Assessment and Plan: no further episodes troponins flat consistent with his CKD/ESRD issues with bradycardia -- Cardiology following (3) Anemia: Code(s): D64.9 - Anemia, unspecified Status: Chronic Assessment and Plan: presumably related to ESRD Epogen with HD follow trend of H/H (4) Hypertension: Code(s): I10 - Essential (primary) hypertension Status: Chronic Assessment and Plan: fluctuating due to inability to provide oral medications may need to use PRN IV medications as a short term solution follow trend of hemodynamics (5) Diabetes mellitus: Code(s): E11.9 - Type 2 diabetes mellitus without complications Status: Chronic Assessment and Plan: follow accuchecks on SSI Will continue to follow. Subjective Date/time seen: 02/17/21 12:09 Pulled out NG tube yesterday and has since been replaced; planning PEG tube placement (although I worry he may attempt to pull this out as well); has issues with weight loss and refusing to eat for a few months now and apparently has lost almost 40 pounds from my discussion with his outpatient dialysis center; no apparent distress noted. Exam Narrative: General: AA male laying in bed in NAD Heart: normal S1 and S2; no rub Lungs: clear to auscultation Abdomen: soft, nontender, nondistended, positive bowel sounds Extremities: no cyanosis or clubbing; no edema Skin: no rash Objective Data Vital Signs Vital Signs: Vital Signs Temp Pulse Resp BP Pulse Ox 02/17/21 10:13 70 02/17/21 06:00 36.6 C 73 18 180/85 H 100 02/16/21 22:45 36.1 C L 74 16 150/73 H 97 02/16/21 20:00 65 16 96 02/16/21 19:52 36.2 C L 65 16 166/70 H 96 Intake/Output Intake/Output: Intake & Output 02/14/21 02/15/21 02/16/21 02/17/21 23:59 23:59 23:59 23:59 Intake Total 60 100 0 Output Total 0 0 0 0 Balance 0 60 100 0 Meds/Results Medications: Active Medications Generic Name Dose Route Start Last Admin Trade Name Esvin PRN Reason Stop Dose Admin Acetaminophen 650 mg 02/12/21 17:52 Acetaminophen 325 Mg Tablet PO Q4H PRN Mild Pain (1-3) Hydrocodone Bitart/Acetaminophen 1 tab 02/13/21 06:00 02/17/21 15:48 Hydrocodone/Acetaminophen (*Crx) 7.5-325 Mg Tablet PO Not Given Q8H SAM Al Hydrox/Mg Hydrox/Simethicone 30 ml 02/12/21 17:52 Mag Hydrox/Al Hydrox/Simeth 30 Ml Udc PO Q6H PRN Indigestion Amlodipine Besylate 10 mg 02/15/21 09:00 02/17/21 10:14 Amlodipine Besylate 5 Mg Tablet PO 10 mg QAM SAM Administration Aspirin 81 mg 02/13/21 09:00 02/17/21 10:15 Aspirin 81 Mg Enteric Tablet PO 81 mg QAM SAM Administration Atorvastatin Calcium 10 mg 02/12/21 23:05 02/16/21 20:14 Atorvastatin 10 Mg Tablet PO Not Given HS SAM Carvedilol 25 mg 02/15/21 09:00 02/17/21 10:13 Carvedilol 25 Mg Tablet PO 25 mg Q12HR SAM Administration Clopidogrel Bisulfate 75 mg 02/13/21 09:00 02/17/21 10:13 Clopidogrel Bisulfate 75 Mg Tablet PO 75 mg DAILY SAM Administration Dextrose 12.5 gm 02/12/21 21:03 02/17/21 09:12 Dextrose 50% 25 Gm/50 Ml Syringe IV PUSH 12.5 gm PRN PRN Administration Hypoglycemia Protocol Gabapentin 100 mg 02/13/21 09:00 02/17/21 13:31 Gabapentin 100 Mg Capsule PO Not Given TID SAM Glucagon 1 mg 02/12/21 21:03 Glucagon For Inj 1 Mg Vial IM PRN PRN Hypoglycemia Protocol Glucose 15 gm 02/12/21 21:03 Glucose Oral Gel 15 Gm Of Glucse In 37.5 Gm Tube PO PRN PRN
--- NOTE | 2021-02-17 13:44 | PM.IMPN ---
Progress Note: A&P Assessment and Plan (1) Chest pain: Code(s): R07.9 - Chest pain, unspecified Status: Acute Assessment and Plan: The patient is no longer complaining of chest pain. The patient is in sinus bradycardia 02/17/21 13:44 02/13 Interval history, patient is quite somnolent unable to provide any history review of symptom, admitted for chest pain EKG showed bradycardia patient is on metoprolol and diltiazem, will hold diltiazem continue metoprolol and monitor to further evaluate cardiac echo is ordered will follow-up, once patient clinically stable will have PT OT evaluate the and further recommendation to follow. patient with end-stage renal disease on hemodialysis seen by Nephrology and will have scheduled dialysis, will continue to monitor 02/14 Interval history patient still quite somnolent and unable to provide any review of symptom other than complaints of pain in his back, patient is admitted with complaint of chest pain his tropes are slightly elevate and flat most likely secondary to end-stage renal disease on hemodialysis, is found to have bradycardia held diltiazem on 02/13 however this morning his heart rate is 48, will hold metoprolol, cardiac echo is ordered and pending, will consult electric clock mechanic for further recommendation, will continue to monitor. 02/15 Interval history, patient with bradycardia DC diltiazem and metoprolol patient still still with bradycardia seen by cardiology added amlodipine 10 mg q.day and Coreg 25 mg b.i.d. however patient is having difficulty swallow had a modified swallow study today and failed, I spoke with the patient got the consent for NG tube will place and oral medications and feeding, will continue to monitor. 02/16 Interval history, patient refused NG tube yesterday and did not receive any of his medication today his blood pressure is elevated, again spoke with the patient and he has agreed to place NG tube, will start his medications by NG tube and start feeding the patient, seen by Cardiology and will continue amlodipine 10 mg q.day, Coreg 25 mg b.i.d., losartan 50 mg q.day, will continue to monitor, will work with a speech therapy as well as PT OT and further recommendation to follow. 02/17 Interval history, patient again pulled out his NG tube, and has been replaced, however I spoke with the patient's and she has agreed and consented to place PEG, will consult GI further recommendation, meanwhile will continue to monitor, patient is seen by Cardiology will continue amlodipine, Coreg, and losartan, patient will continue to work with speech therapist and PT OT will continue to monitor and further recommendation to follow. (2) Elevated troponin: Code(s): R77.8 - Other specified abnormalities of plasma proteins Status: Acute Assessment and Plan: The patient is not having any further chest pain. This could be related to his end-stage renal disease. Appears to be level be level (3) End stage renal disease on dialysis: Code(s): N18.6 - End stage renal disease; Z99.2 - Dependence on renal dialysis Status: Chronic Assessment and Plan: Nephrology has been consulted. He has dialysis on Thursday. (4) Diabetes mellitus: Code(s): E11.9 - Type 2 diabetes mellitus without complications Status: Chronic Assessment and Plan: Accu-Cheks AC and HS. Check A1c. Sliding scale insulin (5) Hyperlipidemia: Code(s): E78.5 - Hyperlipidemia, unspecified Status: Chronic Assessment and Plan: Continue with atorvastatin (6) Hypertension: Code(s): I10 - Essential (primary) hypertension Status: Chronic Assessment and Plan: Continue with losartan. (7) BPH (benign prostatic hyperplasia): Code(s): N40.0 - Benign prostatic hyperplasia without lower urinary tract symptoms Status: Chronic Assessment and Plan: Continue with home medications. (8) Hypothyroidis
[2021-02-17 14:00] VITALS: BP 144/75; PULSE 83; RESP 18; TEMP 36.3; O2SAT 96
[2021-02-17 17:42] LABS: Glucose Point of Care 80 mg/dl (65-105)
[2021-02-17 18:32] LABS: Glucose Point of Care 79 mg/dl (65-105)
[2021-02-17 22:00] VITALS: BP 146/72; PULSE 79; RESP 18; TEMP 36.2; O2SAT 97
[2021-02-18 06:00] VITALS: BP 152/66; PULSE 79; RESP 18; TEMP 36.5; O2SAT 99
[2021-02-18] MEDS: DEXTROSE 50% 25 GM/50 ML SYRINGE IV PUSH ×2 (06:07→11:58)
[2021-02-18] MEDS: LEVOTHYROXINE SODIUM INJ 100 MCG/5 ML VIAL 68.5 MCG IV PUSH (06:10)
[2021-02-18 06:44] LABS: Hematocrit 33.6 % (42.0-52.0); Hemoglobin 9.8 g/dL (14.0-18.0); Mean Corpuscular HGB Conc 29.2 g/dl (32-36); Mean Corpuscular Hemoglobin 28.6 pg (26-34); Mean Platelet Volume 11.1 fl (7.4-10.4); Platelet Count Result 189 k/mm3 (150-375); Red Blood Count 3.43 M/mm3 (4.6-6.20)
--- NOTE | 2021-02-18 06:49 | PM.PNCARD ---
Progress Note: A&P Assessment and Plan (1) Elevated troponin: Code(s): R77.8 - Other specified abnormalities of plasma proteins Status: Acute Assessment and Plan: Mild and flat. Probably related to ESRD. No symptoms to suggest ACS. EKG is nonspecific. Echo showed no wall motion abnormalities with EF 55-60%. No further cardiac workup is needed. (2) Hypertension: Code(s): I10 - Essential (primary) hypertension Status: Chronic Assessment and Plan: High but he is not getting his PO meds due to NPO for aspiration. Stopped Diltiazem due to mild bradycardia. On Amlodipine 10 mg daily and Coreg 25 mg BID, Losartan. Add Hydralazine 25 mg TID. Apparently he is NPO incuding meds for now due to aspiration. Plan to determine how he will get feedings and PO medications today. Will give Hydralazine 10 mg IV q 4 hrs prn SBP>150 mmHg. Monitor BP. (3) Hyperlipidemia: Code(s): E78.5 - Hyperlipidemia, unspecified Status: Chronic Assessment and Plan: On Atorvastatin. (4) End stage renal disease on dialysis: Code(s): N18.6 - End stage renal disease; Z99.2 - Dependence on renal dialysis Status: Chronic Subjective Date/time seen: 02/18/21 06:49 Denies chest pain or sob. States he pulled out NT tube yesterday as he had runny nose. Exam Const: General: cooperative, healthy appearing and comfortable Resp: Auscultation: clear to auscultation bilaterally, no crackles, no rales, no rhonchi and no wheezes Cardio: Jugular venous distension: no JVD Rate: regular rate Rhythm: regular rhythm Heart sounds: no murmurs GI: GI Palp: Yes abdominal tenderness and Yes Soft to palpation Neuro: General: oriented to person, oriented to place and oriented to time Extrem: Right lower extremity: no edema Left lower extremity: no edema Objective Data Vital Signs Vital Signs: Vital Signs - 24 hr 02/17/21 10:13 02/17/21 14:00 02/17/21 22:00 Temperature 97.4 F L 97.2 F L Pulse Rate 70 83 79 Respiratory Rate 18 18 Blood Pressure 144/75 H 146/72 H Pulse Oximetry 96 97 Intake/Output Intake/Output: Intake & Output 10/0102/16/21 02/17/21 02/18/21 23:59 23:59 23:59 23:59 Intake Total 60 100 0 Output Total 0 0 0 Balance 60 100 0 Meds/Results Medications: Active Medications Generic Name Dose Route Start Last Admin Trade Name Freq PRN Reason Stop Dose Admin Acetaminophen 650 mg 02/12/21 17:52 Acetaminophen 325 Mg Tablet PO Q4H PRN Mild Pain (1-3) Hydrocodone Bitart/Acetaminophen 1 tab 02/13/21 06:00 02/18/21 06:11 Hydrocodone/Acetaminophen (*Crx) 7.5-325 Mg Tablet PO Not Given Q8H SAM Al Hydrox/Mg Hydrox/Simethicone 30 ml 02/12/21 17:52 Mag Hydrox/Al Hydrox/Simeth 30 Ml Udc PO Q6H PRN Indigestion Amlodipine Besylate 10 mg 02/15/21 09:00 02/17/21 10:14 Amlodipine Besylate 5 Mg Tablet PO 10 mg QAM SAM Administration Aspirin 81 mg 02/13/21 09:00 02/17/21 10:15 Aspirin 81 Mg Enteric Tablet PO 81 mg QAM SAM Administration Atorvastatin Calcium 10 mg 02/12/21 23:05 02/17/21 23:11 Atorvastatin 10 Mg Tablet PO Not Given HS SAM Carvedilol 25 mg 02/15/21 09:00 02/17/21 23:11 Carvedilol 25 Mg Tablet PO Not Given Q12HR SAM Clopidogrel Bisulfate 75 mg 02/13/21 09:00 02/17/21 10:13 Clopidogrel Bisulfate 75 Mg Tablet PO 75 mg DAILY SAM Administration Dextrose 12.5 gm 02/12/21 21:03 02/18/21 06:07 Dextrose 50% 25 Gm/50 Ml Syringe IV PUSH 12.5 gm PRN PRN Administration Hypoglycemia Protocol Epoetin Tarik-epbx 3,000 units 02/18/21 19:00 Epoetin Tarik-Epbx 3,000 Units/Ml Vial IV PUSH 02/18/21 19:01 ONCE ONE Gabapentin 100 mg 02/13/21 09:00 02/17/21 17:14 Gabapentin 100 Mg Capsule PO Not Given TID SAM Glucagon 1 mg 02/12/21 21:03 Glucagon For Inj 1 Mg Vial IM PRN PRN Hypoglycemia Protocol Glucose 15 gm 09
[2021-02-18 07:07] LABS: Albumin Level 3.4 g/dL (3.5-5.1); Anion Gap 14 mmol/L (8-16); Blood Urea Nitrogen 26 mg/dL (9-20); Calcium 8.8 mg/dL (8.4-10.2); Carbon Dioxide 22 mmol/L (22-30); Chloride 104 mmol/L (98-107); Estimated CRCL calculation 14 ml/min; Estimated Glomerular Filt Rate 14; Glucose 133 mg/dL (65-110); Magnesium 2.1 mg/dL (1.6-2.3); Phosphorus 4.6 mg/dL (2.5-4.5); Potassium 4.2 mmol/L (3.4-5.0); Sodium 140 mmol/L (137-145)
[2021-02-18] MEDS: LIDOCAINE 5% PATCH 2 PATCH TRANSDERM (09:03)
--- NOTE | 2021-02-18 09:51 | PM.PNNEP ---
Progress Note: A&P Assessment and Plan (1) End stage renal disease: Code(s): N18.6 - End stage renal disease Status: Chronic Assessment and Plan: HD today. Volume status looks okay. Potassium is okay. Orders written. (2) Chest pain: Code(s): R07.9 - Chest pain, unspecified Status: Acute Assessment and Plan: no further episodes troponins flat consistent with his CKD/ESRD issues with bradycardia -- Cardiology following (3) Anemia: Code(s): D64.9 - Anemia, unspecified Status: Chronic Assessment and Plan: presumably related to ESRD Epogen with HD Hemoglobin 9.8. (4) Hypertension: Code(s): I10 - Essential (primary) hypertension Status: Chronic Assessment and Plan: fluctuating due to inability to provide oral medications may need to use PRN IV medications as a short term solution BP 142-162. Will see how he does after dialysis (5) Diabetes mellitus: Code(s): E11.9 - Type 2 diabetes mellitus without complications Status: Chronic Assessment and Plan: follow accuchecks on SSI Subjective Date/time seen: 02/18/21 09:51 Interval history: Patient feels okay. Due for dialysis sometime today. Exam Narrative: General: AA male laying in bed in NAD Heart: normal S1 and S2; no rub Lungs: clear to auscultation Abdomen: soft, nontender, nondistended, positive bowel sounds Extremities: no edema Skin: no rash or subQ nodules Objective Data Vital Signs Vital Signs: Vital Signs - 24 hr 02/17/21 10:13 02/17/21 14:00 02/17/21 22:00 Temperature 36.3 C L 36.2 C L Pulse Rate 70 83 79 Respiratory Rate 18 18 Blood Pressure 144/75 H 146/72 H Pulse Oximetry 96 97 02/18/21 06:00 Temperature 36.5 C Pulse Rate 79 Respiratory Rate 18 Blood Pressure 152/66 H Pulse Oximetry 99 Intake/Output Intake/Output: Intake & Output 02/15/21 02/16/21 02/17/21 02/18/21 23:59 23:59 23:59 23:59 Intake Total 60 100 0 0 Output Total 0 0 0 Balance 60 100 0 0 Meds/Results Medications: Active Medications Generic Name Dose Route Start Last Admin Trade Name Freq PRN Reason Stop Dose Admin Acetaminophen 650 mg 02/12/21 17:52 Acetaminophen 325 Mg Tablet PO Q4H PRN Mild Pain (1-3) Hydrocodone Bitart/Acetaminophen 1 tab 02/13/21 06:00 02/18/21 06:11 Hydrocodone/Acetaminophen (*Crx) 7.5-325 Mg Tablet PO Not Given Q8H SAM Al Hydrox/Mg Hydrox/Simethicone 30 ml 02/12/21 17:52 Mag Hydrox/Al Hydrox/Simeth 30 Ml Udc PO Q6H PRN Indigestion Amlodipine Besylate 10 mg 02/15/21 09:00 02/17/21 10:14 Amlodipine Besylate 5 Mg Tablet PO 10 mg QAM SAM Administration Aspirin 81 mg 02/13/21 09:00 02/17/21 10:15 Aspirin 81 Mg Enteric Tablet PO 81 mg QAM SAM Administration Atorvastatin Calcium 10 mg 02/12/21 23:05 02/17/21 23:11 Atorvastatin 10 Mg Tablet PO Not Given HS SAM Carvedilol 25 mg 02/15/21 09:00 02/17/21 23:11 Carvedilol 25 Mg Tablet PO Not Given Q12HR SAM Clopidogrel Bisulfate 75 mg 02/13/21 09:00 02/17/21 10:13 Clopidogrel Bisulfate 75 Mg Tablet PO 75 mg DAILY SAM Administration Dextrose 12.5 gm 02/12/21 21:03 02/18/21 06:07 Dextrose 50% 25 Gm/50 Ml Syringe IV PUSH 12.5 gm PRN PRN Administration Hypoglycemia Protocol Epoetin Tarik-epbx 3,000 units 02/18/21 19:00 Epoetin Tarik-Epbx 3,000 Units/Ml Vial IV PUSH 02/18/21 19:01 ONCE ONE Gabapentin 100 mg 02/13/21 09:00 02/17/21 17:14 Gabapentin 100 Mg Capsule PO Not Given TID SAM Glucagon 1 mg 02/12/21 21:03 Glucagon For Inj 1 Mg Vial IM PRN PRN Hypoglycemia Protocol Glucose 15 gm 02/12/21 21:03 Glucose Oral Gel 15 Gm Of Glucse In 37.5 Gm Tube PO PRN PRN Hypoglycemia Protocol Hydralazine HCl 25 mg 02/16/21 09:00 02/17/21 17:14 Hydralazine Hcl 25 Mg Tablet PO No
--- NOTE | 2021-02-18 11:14 | PCNFU ---
Nutrition Follow-Up Complete: Inadequate oral intake related to diet order as evidenced by NPO. Goal: Patient to meet estimated nutritional needs. Patient has limited progress towards goal. We will continue current goal. Pt current nutrition is NPO. Last recorded weight is 84.6 kg, up from 83.1 kg on admit. Bowel Motility:+BM reported 02/18 Labs Reviewed:Glu 133,BUN 26, GFR 14,Cr 5.0,Alb 3.4,Hct 33.6, Hgb 9.8 Meds Noted:Paxil,Cozaar, Synthroid, Plavix. Additional Notes: Nutrition follow up. Patient has pulled NGT x 2. Plans for GI consult for possible PEG placement. Recommend Nepro beginning at 20mL/hr. Recommend advancing by 10mL/hr every 8 hours, as tolerated, to goal of 50mL/hr. Given 22 hours daily infusion, this would provide 1980kcal, 89g protein and 799mL free water. Suggest 30mL water flush every 4 hours. Monitoring: Follow up every 3 days.
[2021-02-18 12:41] LABS: Glucose Point of Care 107 mg/dl (65-105)
--- NOTE | 2021-02-18 12:47 | PM.IMPN ---
Progress Note: A&P Assessment and Plan (1) Chest pain: Code(s): R07.9 - Chest pain, unspecified Status: Acute Assessment and Plan: The patient is no longer complaining of chest pain. The patient is in sinus bradycardia 02/18/21 12:47 02/13 Interval history, patient is quite somnolent unable to provide any history review of symptom, admitted for chest pain EKG showed bradycardia patient is on metoprolol and diltiazem, will hold diltiazem continue metoprolol and monitor to further evaluate cardiac echo is ordered will follow-up, once patient clinically stable will have PT OT evaluate the and further recommendation to follow. patient with end-stage renal disease on hemodialysis seen by Nephrology and will have scheduled dialysis, will continue to monitor 02/14 Interval history patient still quite somnolent and unable to provide any review of symptom other than complaints of pain in his back, patient is admitted with complaint of chest pain his tropes are slightly elevate and flat most likely secondary to end-stage renal disease on hemodialysis, is found to have bradycardia held diltiazem on 02/13 however this morning his heart rate is 48, will hold metoprolol, cardiac echo is ordered and pending, will consult oil field technician for further recommendation, will continue to monitor. 02/15 Interval history, patient with bradycardia DC diltiazem and metoprolol patient still still with bradycardia seen by cardiology added amlodipine 10 mg q.day and Coreg 25 mg b.i.d. however patient is having difficulty swallow had a modified swallow study today and failed, I spoke with the patient got the consent for NG tube will place and oral medications and feeding, will continue to monitor. 02/16 Interval history, patient refused NG tube yesterday and did not receive any of his medication today his blood pressure is elevated, again spoke with the patient and he has agreed to place NG tube, will start his medications by NG tube and start feeding the patient, seen by Cardiology and will continue amlodipine 10 mg q.day, Coreg 25 mg b.i.d., losartan 50 mg q.day, will continue to monitor, will work with a speech therapy as well as PT OT and further recommendation to follow. 02/17 Interval history, patient again pulled out his NG tube, and has been replaced, however I spoke with the patient's and she has agreed and consented to place PEG, will consult GI further recommendation, meanwhile will continue to monitor, patient is seen by Cardiology will continue amlodipine, Coreg, and losartan, patient will continue to work with speech therapist and PT OT will continue to monitor and further recommendation to follow. 02/18 Interval history, patient does not have NG tube and unable to swallow and take his medication orally, he is on amlodipine, Coreg, and losartan but unable to take it, seen by Cardiology and start the patient on hydralazine later 100 mg q.4 p.r.n. systolic blood pressure above 150, patient is NPO, will be seen by GI today and possibly may have a PEG, will resume his medication and diet, will continue to monitor, currently patient is working with speech therapy (2) Elevated troponin: Code(s): R77.8 - Other specified abnormalities of plasma proteins Status: Acute Assessment and Plan: The patient is not having any further chest pain. This could be related to his end-stage renal disease. Appears to be level be level (3) End stage renal disease on dialysis: Code(s): N18.6 - End stage renal disease; Z99.2 - Dependence on renal dialysis Status: Chronic Assessment and Plan: Nephrology has been consulted. He has dialysis on Thursday. (4) Diabetes mellitus: Code(s): E11.9 - Type 2 diabetes mellitus without complications Status: Chronic Assessment and Plan: Accu-Cheks AC and HS. Check A1c. Sliding scale insulin (5) Hyperlipidemia: Code(s): E78.5 - Hyperlipidemia,
[2021-02-18 14:00] VITALS: BP 162/70; PULSE 74; RESP 16; TEMP 36.6; O2SAT 98
[2021-02-18 14:07] LABS: Glucose Point of Care 70 mg/dl (65-105)
[2021-02-18 14:07] LABS: Glucose Point of Care 108 mg/dl (65-105)
[2021-02-18 14:07] LABS: Glucose Point of Care 70 mg/dl (65-105)
[2021-02-18] MEDS: hydrALAZINE HCL 20 MG/ML VIAL 10 MG IV PUSH (14:13)
--- NOTE | 2021-02-18 17:34 | WPDGICN ---
Assessment and Plan Assessment and plan (1) Silent aspiration: Code(s): T17.900A - Unspecified foreign body in respiratory tract, part unspecified causing asphyxiation, initial encounter Status: Acute Assessment and Plan: he did not pass swallow test and is npo, also pulled out NGT several times based on old records it seems that used to have G-tube in the past will proceed with egd and g-tube placement tomorrow (2) End stage renal disease: Code(s): N18.6 - End stage renal disease Status: Chronic Assessment and Plan: by nephrology (3) Acute encephalopathy: Code(s): G93.40 - Encephalopathy, unspecified Status: Acute Assessment and Plan: he is confused, CT brain showed old strokes (4) CVA (cerebral vascular accident): Code(s): I63.9 - Cerebral infarction, unspecified Status: Acute Assessment and Plan: per CT scan, old strokes (5) Anemia, chronic disease: Code(s): D63.8 - Anemia in other chronic diseases classified elsewhere Status: Chronic Assessment and Plan: hb low but stable normal inr and platelets (6) Hypertension: Code(s): I10 - Essential (primary) hypertension Status: Chronic GI Consult Note Consult date/time: 02/18/21 17:34 Reason for consult: silent aspiration, confusion HPI: Dave Lua is a 60 year old male with multiple medical problems including ESRD on hemodialysis for last 4 years (previously used to have PD but got infection), HTN, CVA who was [facility] few days ago from [facility] complaining of chest pain, cardiology on board because also had bradycardia. He is awake and alert to person and place but rather confused, he failed MBS study and showed silent aspiration. NGT placed coupled of times for feeding but he pulled it out. Now family talked to primary team and willing to have G-tube placement (patient has not been taking his oral meds or eating). Platelets and INR normal. CT scan showed old strokes. Review of Systems Constitutional: Constitutional: Denies chills Eyes: Eyes: Reports no additional eye complaints ENT: Reports Normal hearing present Cardiovascular: Cardiovascular: Reports chest pain Respiratory: Respiratory: Denies dyspnea Gastrointestinal: Comments: dysphagia Genitourinary: Comments: on dialysis Musculoskeletal: Musculoskeletal: Denies neck pain Integumentary/Breasts: Skin/Breast: Denies unusual bruising Neurologic: Reports confusion Psychiatric: Psychiatric: Reports anxiety [facility] Past Medical History Medical History (Updated 02/18/21 @ 17:40 by Manolo Mcknight MD) Acute CVA (cerebrovascular accident) Acute encephalopathy Anemia, chronic disease BPH (benign prostatic hyperplasia) Chest pain Cirrhosis CVA (cerebral vascular accident) Depression Diabetes mellitus End stage renal disease on dialysis On dialysis Thursday and Thursday G tube feedings No longer has a G-tube subsequently removed. 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 The patient is listed as a full code. The patient also has a listed. The patient is from [facility]. Smoking status: Smoker, status unknown Spiritual care concerns: No Meds Home Medications and Allergies Home Medications Medication Instructions Recorded Confirmed Type Lactobacillus acidophilus 1 tablet PO DAILY 02/12/21 02/12/21 History [Acidophilus] aspirin 81 mg PO DAILY
[2021-02-18 18:14] VITALS: BP 142/80
[2021-02-18 18:19] LABS: Glucose Point of Care 77 mg/dl (65-105)
[2021-02-18 18:24] LABS: Glucose Point of Care 84 mg/dl (65-105)
[2021-02-18 22:00] VITALS: BP 150/75; PULSE 86; RESP 16; TEMP 36.9; O2SAT 98
[2021-02-19] VITALS (19 sets, daily range): BP systolic 114–181; BP diastolic 37–94; PULSE 65–91; RESP 12–20; TEMP 36.4–37; O2SAT 96–100
[2021-02-19] MEDS: DEXTROSE 50% 25 GM/50 ML SYRINGE IV PUSH ×2 (00:15→12:27)
[2021-02-19 04:06] LABS: Glucose Point of Care 105 mg/dl (65-105)
[2021-02-19 04:06] LABS: Glucose Point of Care 90 mg/dl (65-105)
[2021-02-19 04:06] LABS: Glucose Point of Care 85 mg/dl (65-105)
[2021-02-19 04:06] LABS: Glucose Point of Care 68 mg/dl (65-105)
[2021-02-19] MEDS: LEVOTHYROXINE SODIUM INJ 100 MCG/5 ML VIAL 68.5 MCG IV PUSH (06:26)
[2021-02-19 06:34] LABS: Glucose Point of Care 83 mg/dl (65-105)
[2021-02-19 06:57] LABS: Hematocrit 31.1 % (42.0-52.0); Hemoglobin 9.5 g/dL (14.0-18.0); Mean Corpuscular HGB Conc 30.5 g/dl (32-36); Mean Corpuscular Hemoglobin 28.8 pg (26-34); Mean Corpuscular Volume 94.2 fl (80-100); Mean Platelet Volume 11.2 fl (7.4-10.4); Platelet Count Result 189 k/mm3 (150-375); Red Cell Distribution Width 17.1 % (11.5-14.5); White Blood Count 4.7 K/mm3 (4.5-10.0)
[2021-02-19 07:23] LABS: Albumin Level 3.5 g/dL (3.5-5.1); Anion Gap 13 mmol/L (8-16); Blood Urea Nitrogen 35 mg/dL (9-20); Calcium 9.1 mg/dL (8.4-10.2); Carbon Dioxide 25 mmol/L (22-30); Chloride 105 mmol/L (98-107); Estimated CRCL calculation 12 ml/min; Estimated Glomerular Filt Rate 12; Glucose 89 mg/dL (65-110); Magnesium 2.1 mg/dL (1.6-2.3); Phosphorus 5.2 mg/dL (2.5-4.5); Sodium 143 mmol/L (137-145)
--- NOTE | 2021-02-19 07:40 | PM.PNCARD ---
Progress Note: A&P Assessment and Plan (1) Elevated troponin: Code(s): R77.8 - Other specified abnormalities of plasma proteins Status: Acute Assessment and Plan: Mild and flat. Probably related to ESRD. No symptoms to suggest ACS. EKG is nonspecific. Echo showed no wall motion abnormalities with EF 55-60%. No further cardiac workup is needed. (2) Hypertension: Code(s): I10 - Essential (primary) hypertension Status: Chronic Assessment and Plan: High but he is not getting his PO meds due to NPO for aspiration. Stopped Diltiazem due to mild bradycardia. On Amlodipine 10 mg daily and Coreg 25 mg BID, Losartan. Apparently he is NPO including meds for now due to aspiration. Will give Hydralazine 10 mg IV q 4 hrs prn SBP>150 mmHg. He is going for EGD, G tube placement today. Monitor BP. (3) Hyperlipidemia: Code(s): E78.5 - Hyperlipidemia, unspecified Status: Chronic Assessment and Plan: On Atorvastatin. (4) End stage renal disease on dialysis: Code(s): N18.6 - End stage renal disease; Z99.2 - Dependence on renal dialysis Status: Chronic Subjective Date/time seen: 02/19/21 07:40 Denies chest pain or sob. Exam Const: General: cooperative, healthy appearing and comfortable Resp: Auscultation: clear to auscultation bilaterally, no crackles, no rales, no rhonchi and no wheezes Cardio: Jugular venous distension: no JVD Rate: regular rate Rhythm: regular rhythm Heart sounds: no murmurs GI: GI Palp: Yes abdominal tenderness and Yes Soft to palpation Neuro: General: oriented to person, oriented to place and oriented to time Extrem: Right lower extremity: no edema Left lower extremity: no edema Objective Data Vital Signs Vital Signs: Vital Signs - 24 hr 02/18/21 14:00 02/18/21 18:14 02/18/21 22:00 Temperature 97.8 F 98.5 F Pulse Rate 74 86 Respiratory Rate 16 16 Blood Pressure 162/70 H 142/80 H 150/75 H Pulse Oximetry 98 98 02/19/21 02:21 02/19/21 06:00 Temperature 97.6 F Pulse Rate 86 79 Respiratory Rate 16 18 Blood Pressure 147/65 H Pulse Oximetry 98 100 Intake/Output Intake/Output: Intake & Output 10/02/21 10/03/21 10/04/21 10/05/21 23:59 23:59 23:59 23:59 Intake Total 100 0 0 0 Output Total 0 0 Balance 100 0 0 0 Meds/Results Medications: Active Medications Generic Name Dose Route Start Last Admin Trade Name Freq PRN Reason Stop Dose Admin Acetaminophen 650 mg 02/12/21 17:52 Acetaminophen 325 Mg Tablet PO Q4H PRN Mild Pain (1-3) Hydrocodone Bitart/Acetaminophen 1 tab 02/13/21 06:00 02/19/21 06:25 Hydrocodone/Acetaminophen (*Crx) 7.5-325 Mg Tablet PO Not Given Q8H SAM Al Hydrox/Mg Hydrox/Simethicone 30 ml 02/12/21 17:52 Mag Hydrox/Al Hydrox/Simeth 30 Ml Udc PO Q6H PRN Indigestion Amlodipine Besylate 10 mg 02/15/21 09:00 02/18/21 14:42 Amlodipine Besylate 5 Mg Tablet PO Not Given QAM SAM Aspirin 81 mg 02/13/21 09:00 02/18/21 14:42 Aspirin 81 Mg Enteric Tablet PO Not Given QAM SAM Atorvastatin Calcium 10 mg 02/12/21 23:05 02/18/21 20:19 Atorvastatin 10 Mg Tablet PO Not Given HS SAM Carvedilol 25 mg 02/15/21 09:00 02/18/21 20:19 Carvedilol 25 Mg Tablet PO Not Given Q12HR SAM Clopidogrel Bisulfate 75 mg 02/13/21 09:00 02/18/21 14:43 Clopidogrel Bisulfate 75 Mg Tablet PO Not Given DAILY SAM Dextrose 12.5 gm 02/12/21 21:03 02/19/21 00:15 Dextrose 50% 25 Gm/50 Ml Syringe IV PUSH 12.5 gm PRN PRN Administration Hypoglycemia Protocol Gabapentin 100 mg 02/13/21 09:00 02/18/21 16:39 Gabapentin 100 Mg Capsule PO Not Given TID SAM Glucagon 1 mg 02/12/21 21:03 Glucagon For Inj 1 Mg Vial IM PRN PRN Hypoglycemia Protocol Glucose 15 gm 02/12/21 21:03 Glucose Oral Gel 15 Gm Of Glucse In 37.5 Gm Tube PO PRN PRN Hypoglycemia Protocol Hydralazi
--- NOTE | 2021-02-19 09:11 | PM.PNNEP ---
Progress Note: A&P Assessment and Plan (1) End stage renal disease: Code(s): N18.6 - End stage renal disease Status: Chronic Assessment and Plan: HD today. Will take a little bit of fluid off and see how his blood pressure does. (2) Chest pain: Code(s): R07.9 - Chest pain, unspecified Status: Acute Assessment and Plan: no further episodes troponins flat consistent with his CKD/ESRD issues with bradycardia -- Cardiology following (3) Anemia: Code(s): D64.9 - Anemia, unspecified Status: Chronic Assessment and Plan: presumably related to ESRD Epogen with HD Hemoglobin 9.5. (4) Hypertension: Code(s): I10 - Essential (primary) hypertension Status: Chronic Assessment and Plan: fluctuating due to inability to provide oral medications may need to use PRN IV medications as a short term solution BP 142-162. Will see how he does after dialysis Adjust meds if needed tomorrow. (5) Diabetes mellitus: Code(s): E11.9 - Type 2 diabetes mellitus without complications Status: Chronic Assessment and Plan: follow accuchecks on SSI Subjective Date/time seen: 02/19/21 09:11 Interval history: Patient feels okay. Denies chest pain or shortness of breath. Just answers yes no questions for a while then he fatigues. He did not get dialysis yesterday because of emergencies. He is going to get yesterday's dialysis today then will get back on schedule tomorrow. Exam Narrative: General: AA male laying in bed in NAD Heart: normal S1 and S2; no rub Lungs: clear Abdomen: soft, nontender, nondistended, positive bowel sounds Extremities: no edema Skin: no rash Objective Data Vital Signs Vital Signs: Vital Signs - 24 hr 02/18/21 14:00 02/18/21 18:14 02/18/21 22:00 Temperature 36.6 C 36.9 C Pulse Rate 74 86 Respiratory Rate 16 16 Blood Pressure 162/70 H 142/80 H 150/75 H Pulse Oximetry 98 98 02/19/21 02:21 02/19/21 06:00 02/19/21 08:00 Temperature 36.4 C 36.7 C Pulse Rate 86 79 79 Respiratory Rate 16 18 12 Blood Pressure 147/65 H 161/79 H Pulse Oximetry 98 100 100 Intake/Output Intake/Output: Intake & Output 02/16/21 02/17/21 02/18/21 02/19/21 23:59 23:59 23:59 23:59 Intake Total 100 0 0 0 Output Total 0 0 Balance 100 0 0 0 Meds/Results Medications: Active Medications Generic Name Dose Route Start Last Admin Trade Name Freq PRN Reason Stop Dose Admin Acetaminophen 650 mg 02/12/21 17:52 Acetaminophen 325 Mg Tablet PO Q4H PRN Mild Pain (1-3) Hydrocodone Bitart/Acetaminophen 1 tab 02/13/21 06:00 02/19/21 06:25 Hydrocodone/Acetaminophen (*Crx) 7.5-325 Mg Tablet PO Not Given Q8H SAM Al Hydrox/Mg Hydrox/Simethicone 30 ml 02/12/21 17:52 Mag Hydrox/Al Hydrox/Simeth 30 Ml Udc PO Q6H PRN Indigestion Amlodipine Besylate 10 mg 02/15/21 09:00 02/18/21 14:42 Amlodipine Besylate 5 Mg Tablet PO Not Given QAM SAM Aspirin 81 mg 02/13/21 09:00 02/18/21 14:42 Aspirin 81 Mg Enteric Tablet PO Not Given QAM SAM Atorvastatin Calcium 10 mg 02/12/21 23:05 02/18/21 20:19 Atorvastatin 10 Mg Tablet PO Not Given HS SAM Carvedilol 25 mg 02/15/21 09:00 02/18/21 20:19 Carvedilol 25 Mg Tablet PO Not Given Q12HR SAM Clopidogrel Bisulfate 75 mg 02/13/21 09:00 02/18/21 14:43 Clopidogrel Bisulfate 75 Mg Tablet PO Not Given DAILY SAM Dextrose 12.5 gm 02/12/21 21:03 02/19/21 00:15 Dextrose 50% 25 Gm/50 Ml Syringe IV PUSH 12.5 gm PRN PRN Administration Hypoglycemia Protocol Gabapentin 100 mg 02/13/21 09:00 02/18/21 16:39 Gabapentin 100 Mg Capsule PO Not Given TID SAM Glucagon 1 mg 02/12/21 21:03 Glucagon For Inj 1 Mg Vial IM PRN PRN Hypoglycemia Protocol Glucose 15 gm 02/12/21 21:03 Glucose Oral Gel 15 Gm Of Glucse In 37.5 Gm Tube PO
[2021-02-19] MEDS: LIDOCAINE 5% PATCH 2 PATCH TRANSDERM (09:27)
--- NOTE | 2021-02-19 10:50 | PCNFU ---
Nutrition Follow-Up Complete: Inadequate oral intake related to diet order as evidenced by NPO. Goal:Patient to meet estimated nutritional needs. Patient is progressing towards goal. We will continue current goal. Pt current nutrition is NPO. Last recorded weight is 84.8 kg, up from 83.1 kg on admit. Bowel Motility:+BM reported 02/18 Labs Reviewed: BUN 35, CR 6.0,Hct 31.1,Hgb 9.5 Meds Noted:Plavix, Synthroid, Cozaar, Paxil Additional Notes: Patient currently NPO for PEG placement today around 1pm. Recommend Nepro beginning at 20mL/hr. Recommend advancing by 10mL/hr every 8 hours, as tolerated, to goal of 50mL/hr. Given 22 hours daily infusion, this would provide 1980kcal, 89g protein and 799mL free water. Suggest 30mL water flush every 4 hours. Spoke with Anna, Deputy Sheriff she will be contacting the NH on in regards to formula type availability. Monitoring: Follow up every Thursday and Thursday.
--- NOTE | 2021-02-19 11:17 | PM.IMPN ---
Progress Note: A&P Assessment and Plan (1) Chest pain: Code(s): R07.9 - Chest pain, unspecified Status: Acute Assessment and Plan: Patient admitted for chest pain. EKG showed bradycardia (56) with LVH, and borderline T wave changes in inferior lead. Echo showing normal LV size with mild concentric hypertrophy, mild hypokinesis of the basal inferior and lateral pelletier with EF of 55-60%. Normal diastolic function. Mild pulmonary hypertension. Right ventricle is not well seen. Troponin elevated but flat to 0.046 felt related to ESRD. Cardiology was consulted. Cardiology felt no further workup was required. Continue Lipitor, Plavix, aspirin and Coreg. (2) Silent aspiration: Code(s): T17.900A - Unspecified foreign body in respiratory tract, part unspecified causing asphyxiation, initial encounter Status: Acute Assessment and Plan: Patient failed modified barium swallow. He has silent aspiration. Clinically appears that he has had a G-tube in the past. GI was consulted with plans for PEG tube placement. Will hold his scheduled narcotics as well since he has not been receiving. (3) Elevated troponin: Code(s): R77.8 - Other specified abnormalities of plasma proteins Status: Acute Assessment and Plan: As above. Appreciate cardiology input. (4) End stage renal disease on dialysis: Code(s): N18.6 - End stage renal disease; Z99.2 - Dependence on renal dialysis Status: Chronic Assessment and Plan: Patient with end-stage renal disease. Nephrology was consulted. Continue dialysis per Nephrology instructions. Patient missed dialysis yesterday due to an emergency but with plans to have it today. He normally has dialysis on Thursday. (5) Diabetes mellitus: Code(s): E11.9 - Type 2 diabetes mellitus without complications Status: Chronic Assessment and Plan: A1c 5.1. The patient's blood glucose was reviewed on 02/19 Glucose remains well controlled. Continue AccuCheks covering with sliding scale. Hypoglycemia protocol available as needed. Continue monitor. (6) Hyperlipidemia: Code(s): E78.5 - Hyperlipidemia, unspecified Status: Chronic Assessment and Plan: AST/ALT normal on admission. Continue with atorvastatin for his HLD. (7) Hypertension: Code(s): I10 - Essential (primary) hypertension Status: Chronic Assessment and Plan: Patient's blood pressure was reviewed on 02/19 Blood pressure remains poorly controlled. Will continue current medications with losartan, Hytrin, Norvasc and Coreg. Will see how his blood pressure above after dialysis. (8) BPH (benign prostatic hyperplasia): Code(s): N40.0 - Benign prostatic hyperplasia without lower urinary tract symptoms Status: Chronic Assessment and Plan: Stable. Continue Hytrin. (9) Hypothyroidism: Code(s): E03.9 - Hypothyroidism, unspecified Status: Chronic Assessment and Plan: TSH normal. Continue Synthroid. Change to oral route when able. (10) Neuropathy: Code(s): G62.9 - Polyneuropathy, unspecified Status: Chronic Assessment and Plan: Stable. Continue gabapentin. (11) Anemia, chronic disease: Code(s): D63.8 - Anemia in other chronic diseases classified elsewhere Status: Chronic Assessment and Plan: Hgb low but stable in the 9-10 range. Unable to determine patient's baseline. Patient with end-stage renal disease. Will check iron studies and B12/folate (12) Cirrhosis: Code(s): K74.60 - Unspecified cirrhosis of liver Status: Chronic Assessment and Plan: AST/ALT normal on admission. AP elevated at 616 and TB 3.0 but not repeated. Repeat LFTs and fractionate bili. Check RUQ US given his complaints of abd pain. Check Ammonia level (13) Depression: Code(s): F32.9 - Major depressive disorder
[2021-02-19 12:29] LABS: Glucose Point of Care 66 mg/dl (65-105)
[2021-02-19 12:57] LABS: Ammonia < 9 umol/L (9-30)
--- NOTE | 2021-02-19 13:00 | PC.NURSE ---
To GI lab via [facility].
[2021-02-19 13:03] LABS: Alanine Aminotransferase 43 U/L (4-50); Albumin Level 3.3 g/dL (3.5-5.1); Alkaline Phosphatase 752 U/L (38-126); Aspartate Amino Transferase 80 U/L (17-59); Bilirubin Direct 5.2 mg/dL (0-0.3); Bilirubin Indirect 0.8 mg/dL (0-1.1); Bilirubin,Total 8.8 mg/dL (0.2-1.3)
[2021-02-19] MEDS: LACTATED RINGERS 1,000 ML 150 ML IV CONT (13:29)
[2021-02-19 13:37] LABS: Glucose Point of Care 90 mg/dl (65-105)
--- NOTE | 2021-02-19 13:43 | WPDANESEPPF ---
Anes - Initial Pre Proc Eval Procedure: Operation Date: 02/19/21 14:30 Proposed Procedures p Percutaneous Endoscopic Gastrostomy - Manolo Mcknight MD Date/Time: 02/19/21 13:43 Surgeon: Roseann Belcher MD Pre Op Diagnosis: Elevated troponin Patient Data Age: 60 Gender: M Height: 1.73 m Weight: 84.8 kg Last Vital Signs Temp 98.1 F 02/19/21 08:00 Pulse 79 02/19/21 08:00 Resp 12 02/19/21 08:00 BP 161/79 H 02/19/21 08:00 Pulse Ox 100 02/19/21 08:00 Allergies Allergy/AdvReac Type Severity Reaction Status Date / Time No Known Allergies Allergy Verified 02/19/21 13:40 Home Medications Medication Instructions Recorded Confirmed Type Lactobacillus acidophilus 1 tablet PO DAILY 02/12/21 02/12/21 History [Acidophilus] aspirin 81 mg PO DAILY 02/12/21 02/12/21 History atorvastatin 10 mg PO HS 02/12/21 02/12/21 History clopidogrel [Plavix] 75 mg PO DAILY 02/12/21 02/12/21 History darbepoetin yvette in polysorbat 100 mcg SUBCUT WEEKLY 02/12/21 02/12/21 History [Aranesp SureClick (polysorbat)] diltiazem HCl 60 mg PO QID 02/12/21 02/12/21 History gabapentin 100 mg PO TID 02/12/21 02/12/21 History hydrocodone-acetaminophen [Avenel] 1 tablet PO Q8H 02/12/21 02/12/21 History insulin admin supplies [InPen (for 02/12/21 02/12/21 History Humalog)] levothyroxine 137 mcg PO DAILY 02/12/21 02/12/21 History loperamide [Imodium A-D] 1 mg PO Q6H PRN MDD 8 02/12/21 02/12/21 History losartan 50 mg PO DAILY 02/12/21 02/12/21 History metoprolol tartrate 100 mg PO Q12H 02/12/21 02/12/21 History mirtazapine 15 mg PO HS 02/12/21 02/12/21 History paroxetine HCl 20 mg PO QAM 02/12/21 02/12/21 History sevelamer carbonate 0.8 g PO TID 02/12/21 02/12/21 History terazosin 2 mg PO HS 02/12/21 02/12/21 History Laboratory Tests 02/18/21 02/18/21 02/18/21 06:04 06:32 11:55 WBC RBC Hgb Hct MCV MCH MCHC RDW Plt Count MPV Sodium Potassium Chloride Carbon Dioxide Anion Gap BUN Creatinine Estim Creat Clear Calc Estimated GFR Glucose POC Capillary Glucose 70 mg/dl mg/dl 108 mg/dl H mg/dl 70 mg/dl mg/dl (65-105) (65-105) (65-105) Calcium Phosphorus Magnesium Iron TIBC % Saturation Ferritin Total Bilirubin Direct Bilirubin Indirect Bilirubin AST ALT Alkaline Phosphatase Ammonia Total Protein Albumin Vitamin B12 Folate 02/18/21 02/18/21 02/19/21 16:53 18:20 00:13 WBC RBC Hgb Hct MCV MCH MCHC RDW Plt Count MPV Sodium Potassium Chloride Carbon Dioxide Anion Gap BUN Creatinine Estim Creat Clear Calc Estimated GFR Glucose POC Capillary Glucose 77 mg/dl mg/dl 84 mg/dl mg/dl 68 mg/dl mg/dl (65-105) (65-105) (65-105) Calcium Phosphorus Magnesium Iron TIBC % Saturation Ferritin Total Bilirubin Direct Bilirubin Indirect Bilirubin AST ALT Alkaline Phosphatase Ammonia Total Protein Albumin Vitamin B12 Folate 02/19/21 02/19/21 02/19/21 00:42 01:54 03:56 WBC RBC Hgb Hct MCV MCH MCHC
--- NOTE | 2021-02-19 14:32 | PC.NURSE ---
On 02/19/21, the student, [ Lea Erazo], provided care and completed [facility] documentation on this patient. I have reviewed the student's documentation and agree with the findings.
[2021-02-19 14:55] LABS: Glucose Point of Care 80 mg/dl (65-105)
--- NOTE | 2021-02-19 15:30 | PC.NURSE ---
Back from GI lab via stretcher.
--- NOTE | 2021-02-19 15:49 | PC.NURSE ---
To dialysis via bed.
[2021-02-19] MEDS: EPOETIN ALFA-EPBX 3,000 UNITS/ML VIAL 3000 UNITS IV PUSH (17:15)
[2021-02-19 17:37] LABS: Iron 38 ug/dL (49-181)
[2021-02-19 17:53] LABS: Percent Iron Saturation 26 % (20-50)
[2021-02-19 18:21] LABS: Glucose Point of Care 82 mg/dl (65-105)
[2021-02-19 19:02] LABS: Ferritin > 2000.00 ng/mL (11.1-264)
--- NOTE | 2021-02-19 19:15 | PC.NURSE ---
Back from dialysis via bed.
[2021-02-19] MEDS: MIRTAZAPINE 15 MG TABLET PO (20:14)
[2021-02-19] MEDS: ATORVASTATIN 10 MG TABLET PO (20:14)
[2021-02-19] MEDS: TERAZOSIN HCL 1 MG CAPSULE 2 MG PO (20:14)
[2021-02-19] MEDS: carvediloL 25 MG TABLET PO (20:15)
[2021-02-19 20:33] LABS: Folic Acid 10.2 ng/mL (2.76->20)
[2021-02-20] VITALS (24 sets, daily range): BP systolic 96–146; BP diastolic 60–81; PULSE 63–106; RESP 16–18; TEMP 36.7–37.2; O2SAT 96–100
[2021-02-20 00:36] LABS: Glucose Point of Care 91 mg/dl (65-105)
[2021-02-20] MEDS: ONDANSETRON INJ 4 MG/2 ML VIAL IV PUSH ×2 (05:01→12:02)
[2021-02-20] MEDS: LEVOTHYROXINE SODIUM INJ 100 MCG/5 ML VIAL 68.5 MCG IV PUSH (06:02)
[2021-02-20 06:34] LABS: Glucose Point of Care 119 mg/dl (65-105)
[2021-02-20 06:53] LABS: Hematocrit 33.8 % (42.0-52.0); Hemoglobin 10.1 g/dL (14.0-18.0); Mean Corpuscular HGB Conc 29.9 g/dl (32-36); Mean Corpuscular Hemoglobin 28.7 pg (26-34); Mean Platelet Volume 11.3 fl (7.4-10.4); Platelet Count Result 195 k/mm3 (150-375); Red Blood Count 3.52 M/mm3 (4.6-6.20); Red Cell Distribution Width 17.7 % (11.5-14.5); White Blood Count 6.7 K/mm3 (4.5-10.0)
[2021-02-20 06:58] LABS: Alanine Aminotransferase 43 U/L (4-50); Albumin Level 3.6 g/dL (3.5-5.1); Alkaline Phosphatase 833 U/L (38-126); Anion Gap 15 mmol/L (8-16); Aspartate Amino Transferase 76 U/L (17-59); Blood Urea Nitrogen 21 mg/dL (9-20); Carbon Dioxide 23 mmol/L (22-30); Chloride 106 mmol/L (98-107); Estimated CRCL calculation 18 ml/min; Estimated Glomerular Filt Rate 19; Glucose 126 mg/dL (65-110); Phosphorus 3.8 mg/dL (2.5-4.5); Potassium 3.9 mmol/L (3.4-5.0); Sodium 144 mmol/L (137-145)
--- NOTE | 2021-02-20 07:51 | PM.PNCARD ---
Progress Note: A&P Assessment and Plan (1) Elevated troponin: Code(s): R77.8 - Other specified abnormalities of plasma proteins Status: Acute Assessment and Plan: Mild and flat. Probably related to ESRD. No symptoms to suggest ACS. EKG is nonspecific. Echo showed no wall motion abnormalities with EF 55-60%. No further cardiac workup is needed. (2) Hypertension: Code(s): I10 - Essential (primary) hypertension Status: Chronic Assessment and Plan: High but he is not getting his PO meds due to NPO for aspiration. Got PEG tube placed on 02/19/21 and hopefully will be able to receive medications from it. He has been getting Hydralazine 10 mg IV q 4 hrs prn SBP>150 mmHg. Stopped Diltiazem due to mild bradycardia. On Amlodipine 10 mg daily and Coreg 25 mg BID, Losartan once able to take it via PEG. Monitor BP closely once restarted to avoid hypotension. (3) Hyperlipidemia: Code(s): E78.5 - Hyperlipidemia, unspecified Status: Chronic Assessment and Plan: On Atorvastatin. (4) End stage renal disease on dialysis: Code(s): N18.6 - End stage renal disease; Z99.2 - Dependence on renal dialysis Status: Chronic Subjective Date/time seen: 02/20/21 07:51 He had some nausea and vomiting last night. Had PEG tube placed yesterday and had received a small amount of tube feedings from it. No chest pain or sob. Exam Const: General: cooperative, healthy appearing and comfortable Resp: Auscultation: clear to auscultation bilaterally, no crackles, no rales, no rhonchi and no wheezes Cardio: Jugular venous distension: no JVD Rate: regular rate Rhythm: regular rhythm Heart sounds: no murmurs GI: GI Palp: Yes abdominal tenderness and Yes Soft to palpation Neuro: General: oriented to person, oriented to place and oriented to time Extrem: Right lower extremity: no edema Left lower extremity: no edema Objective Data Vital Signs Vital Signs: Vital Signs - 24 hr 02/19/21 08:00 02/19/21 13:44 02/19/21 14:14 Temperature 98.1 F 97.8 F Pulse Rate 79 71 74 Respiratory Rate 12 18 12 Blood Pressure 161/79 H 161/72 H 114/37 L Pulse Oximetry 100 99 100 02/19/21 14:24 02/19/21 14:34 02/19/21 15:35 Temperature 98.0 F Pulse Rate 73 67 67 Respiratory Rate 16 17 16 Blood Pressure 115/39 L 151/46 H 181/68 H Pulse Oximetry 100 100 99 02/19/21 15:52 02/19/21 16:00 02/19/21 16:30 Temperature 98.0 F Pulse Rate 70 65 77 Respiratory Rate 18 Blood Pressure 165/85 H 174/90 H 166/93 H Pulse Oximetry 02/19/21 17:00 02/19/21 17:30 02/19/21 18:00 Temperature Pulse Rate 74 82 87 Respiratory Rate Blood Pressure 160/86 H 166/89 H 162/90 H Pulse Oximetry 02/19/21 18:30 02/19/21 19:00 02/19/21 19:16 Temperature 97.6 F Pulse Rate 91 88 81 Respiratory Rate 20 Blood Pressure 166/94 H 152/83 H 145/78 H Pulse Oximetry 02/19/21 20:15 02/19/21 21:43 02/20/21 05:23 Temperature 97.8 F 98.4 F Pulse Rate 75 81 86 Respiratory Rate 17 18 Blood Pressure 152/84 H 143/81 H Pulse Oximetry 96 96 Intake/Output Intake/Output: Intake & Output 02/17/21 02/18/21 02/19/21 02/20/21 23:59 23:59 23:59 23:59 Intake Total 0 0 200 250 Output Total 0 200 Balance 0 0 0 250 Meds/Results Medications: Active Medications Generic Name Dose Route Start Last Admin Trade Name Esvin PRN Reason Stop Dose Admin Acetaminophen 650 mg 02/12/21 17:52 Acetaminophen 325 Mg Tablet PO Q4H PRN Mild Pain (1-3) Al Hydrox/Mg Hydrox/Simethicone 30 ml 02/12/21 17:52 Mag Hydrox/Al Hydrox/Simeth 30 Ml Udc PO Q6H PRN Indigestion Amlodipine Besylate 10 mg 02/15/21 09:00 02/19/21 09:26 Amlodipine Besylate 5 Mg Tablet PO Not Given QAM [facility] Aspirin 81 mg 02/13/21 09:00 02/19/21 09:26 Aspirin 81 Mg Enteric Tablet PO Not Given QAM [facility] Atorvastatin Calcium 10 mg 02/12/21 23:05 02/19/21 20:14 Atorvastatin 10
--- NOTE | 2021-02-20 08:26 | PM.PNNEP ---
Progress Note: A&P Assessment and Plan (1) End stage renal disease: Code(s): N18.6 - End stage renal disease Status: Chronic Assessment and Plan: HD today. will go for 2-3 L today. (2) Chest pain: Code(s): R07.9 - Chest pain, unspecified Status: Acute Assessment and Plan: no further episodes troponins flat consistent with his CKD/ESRD issues with bradycardia -- Cardiology following (3) Anemia: Code(s): D64.9 - Anemia, unspecified Status: Chronic Assessment and Plan: presumably related to ESRD Epogen with HD Hemoglobin 10.1 (4) Hypertension: Code(s): I10 - Essential (primary) hypertension Status: Chronic Assessment and Plan: blood pressure under pretty good control with systolic around 140-150. He is on amlodipine, Coreg, and Hytrin (5) Diabetes mellitus: Code(s): E11.9 - Type 2 diabetes mellitus without complications Status: Chronic Assessment and Plan: follow accuchecks on SSI Subjective Date/time seen: 02/20/21 08:26 Interval history: Patient feels okay. He has a little nausea. No belly pain today. He denies shortness of breath. HD is due today Exam Narrative: General: AA male laying in bed in NAD Heart: normal S1 and S2; no rub Lungs: clear bilaterally Abdomen: soft, nontender, nondistended, positive bowel sounds Extremities: no edema Skin: no rash or subcu nodules Objective Data Vital Signs Vital Signs: Vital Signs - 24 hr 02/19/21 13:44 02/19/21 14:14 02/19/21 14:24 Temperature 36.6 C Pulse Rate 71 74 73 Respiratory Rate 18 12 16 Blood Pressure 161/72 H 114/37 L 115/39 L Pulse Oximetry 99 100 100 02/19/21 14:34 02/19/21 15:35 02/19/21 15:52 Temperature 36.7 C 36.7 C Pulse Rate 67 67 70 Respiratory Rate 17 16 18 Blood Pressure 151/46 H 181/68 H 165/85 H Pulse Oximetry 100 99 02/19/21 16:00 02/19/21 16:30 02/19/21 17:00 Temperature Pulse Rate 65 77 74 Respiratory Rate Blood Pressure 174/90 H 166/93 H 160/86 H Pulse Oximetry 02/19/21 17:30 02/19/21 18:00 02/19/21 18:30 Temperature Pulse Rate 82 87 91 Respiratory Rate Blood Pressure 166/89 H 162/90 H 166/94 H Pulse Oximetry 02/19/21 19:00 02/19/21 19:16 02/19/21 20:15 Temperature 36.4 C Pulse Rate 88 81 75 Respiratory Rate 20 Blood Pressure 152/83 H 145/78 H Pulse Oximetry 02/19/21 21:43 02/20/21 05:23 Temperature 36.6 C 36.9 C Pulse Rate 81 86 Respiratory Rate 17 18 Blood Pressure 152/84 H 143/81 H Pulse Oximetry 96 96 Intake/Output Intake/Output: Intake & Output 02/17/21 02/18/21 02/19/21 02/20/21 23:59 23:59 23:59 23:59 Intake Total 0 0 200 250 Output Total 0 200 Balance 0 0 0 250 Meds/Results Medications: Active Medications Generic Name Dose Route Start Last Admin Trade Name Freq PRN Reason Stop Dose Admin Acetaminophen 650 mg 02/20/21 08:22 Acetaminophen Elixir 325 Mg/10.15 Ml Udc FEED TUBE Q4H PRN Mild Pain (1-3) Al Hydrox/Mg Hydrox/Simethicone 30 ml 02/20/21 08:08 Mag Hydrox/Al Hydrox/Simeth 30 Ml Udc FEED TUBE Q6H PRN Indigestion Amlodipine Besylate 10 mg 02/20/21 09:00 Amlodipine Besylate 5 Mg Tablet FEED TUBE QAM [facility] Aspirin 81 mg 02/21/21 08:00 Aspirin 81 Mg Chewable Tablet FEED TUBE DAILY@0800 [facility] Atorvastatin Calcium 10 mg 02/20/21 21:00 Atorvastatin 10 Mg Tablet FEED TUBE HS [facility] Carvedilol 25 mg 02/20/21 09:00 Carvedilol 25 Mg Tablet FEED TUBE Q12HR [facility] Dextrose 12.5 gm 02/12/21 21:03 02/19/21 12:27 Dextrose 50% 25 Gm/50 Ml Syringe IV PUSH 12.5 gm PRN PRN Administration Hypoglycemia Protocol Gabapentin 100 mg 02/20/21 09:00 Gabapentin 100 Mg Capsule FEED TUBE TID SAM Glucagon 1 mg 02/12/21 21:03 Glucagon For Inj 1 Mg Vial IM PRN PRN Hypoglycemia Protocol G
--- NOTE | 2021-02-20 10:45 | PCSTNOTE ---
Attempted to see patient for swallowing treatment. Unable to be completed at this time due to patient being at dialysis.
[2021-02-20] MEDS: EPOETIN ALFA-EPBX 10,000 UNITS/ML VIAL 10000 UNITS IV PUSH (12:00)
[2021-02-20 12:18] LABS: Glucose Point of Care 94 mg/dl (65-105)
--- NOTE | 2021-02-20 13:15 | PM.IMPN ---
Progress Note: A&P Assessment and Plan (1) Chest pain: Code(s): R07.9 - Chest pain, unspecified Status: Acute Assessment and Plan: Patient admitted for chest pain. EKG showed bradycardia (56) with LVH, and borderline T wave changes in inferior lead. Echo showing normal LV size with mild concentric hypertrophy, mild hypokinesis of the basal inferior and lateral pelletier with EF of 55-60%. Normal diastolic function. Mild pulmonary hypertension. Right ventricle is not well seen. Troponin elevated but flat to 0.046 felt related to ESRD. Cardiology was consulted. Cardiology felt no further workup was required. Patient still having chest pain - gastric reflux? Cardiac? Will repeat EKG and Troponin. Continue Lipitor, Plavix, aspirin and Coreg. (2) Silent aspiration: Code(s): T17.900A - Unspecified foreign body in respiratory tract, part unspecified causing asphyxiation, initial encounter Status: Acute Assessment and Plan: Patient failed modified barium swallow. He has silent aspiration. Clinically appears that he has had a G-tube in the past. GI was consulted and patient had PEG tube placed yesterday. Not tolerating the TF well. Related to acute cholecystitis? HIDA scan ordered. Keep off TF until etiology can be ascertained. If no acute abd findings, then consider Reglan. (3) Elevated troponin: Code(s): R77.8 - Other specified abnormalities of plasma proteins Status: Acute Assessment and Plan: As above. Appreciate cardiology input. (4) End stage renal disease on dialysis: Code(s): N18.6 - End stage renal disease; Z99.2 - Dependence on renal dialysis Status: Chronic Assessment and Plan: Patient with end-stage renal disease. He normally has dialysis on Thursday. Nephrology following and appreciate their input. Continue dialysis per Nephrology instructions. (5) Cirrhosis: Code(s): K74.60 - Unspecified cirrhosis of liver Status: Chronic Assessment and Plan: AST/ALT normal on admission. AST peaked at 80 before trending down. AP elevated to 833 and TB climbed to 9.0 all direct bili. Ammonia level negative. EGD was normal - no ulcer or gastritis. RUQ US with findings suggestive of some surface nodularity to the liver suspicious for cirrhosis. Also with cholelithiasis with nonspecific minimal gallbladder wall thickening and trace amount of pericholecystic fluid and increased prominence of the portal veins which can be seen in the setting of portal venous hypertension. Will check HIDA and CT A/P. (6) Diabetes mellitus: Code(s): E11.9 - Type 2 diabetes mellitus without complications Status: Chronic Assessment and Plan: A1c 5.1. The patient's blood glucose was reviewed on 02/20 Glucose remains well controlled. Continue AccuCheks covering with sliding scale. Hypoglycemia protocol available as needed. Continue monitor. (7) Hyperlipidemia: Code(s): E78.5 - Hyperlipidemia, unspecified Status: Chronic Assessment and Plan: AST/ALT normal on admission. AST up to 80 before trending down and ALT remaining normal. Continue atorvastatin. (8) Hypertension: Code(s): I10 - Essential (primary) hypertension Status: Chronic Assessment and Plan: Patient's blood pressure was reviewed on 02/20 Blood pressure much better controlled. Will continue current medications with losartan, Hytrin, Norvasc and Coreg. Follow (9) BPH (benign prostatic hyperplasia): Code(s): N40.0 - Benign prostatic hyperplasia without lower urinary tract symptoms Status: Chronic Assessment and Plan: Stable. Continue Hytrin. (10) Hypothyroidism: Code(s): E03.9 - Hypothyroidism, unspecified Status: Chronic Assessment and Plan: TSH normal. Continue Synthroid and change to TF route. (11) Neuropathy: Code(s): G62.9 - Polyneuropathy, unspecified
--- NOTE | 2021-02-20 13:18 | ECG_ITS ---
Measurements Intervals [place] Rate: 91 P: 119 MA: 154 QRS: -34 QRSD: 98 T: 7 QT: 392 QTc: 485 Interpretive Statements SINUS RHYTHM LEFT AXIS DEVIATION DELAYED PRECORDIAL R/S TRANSITION LEFT VENTRICULAR HYPERTROPHY BORDERLINE T WAVE ABNORMALITY- INFERIOR LEADS BORDERLINE ECG Electronically Signed On 02-20-2021 19:18:48 CDT by Jason Trujillo D.O.
--- NOTE | 2021-02-20 14:38 | WPDANESPN ---
Anes - Prog Note Post-Op Date/Time: 02/20/21 14:38 Cardiovascular status: normal Respiratory status: normal Airway patency: baseline Mental status: baseline Post-Op hydration status: normal Vital Signs: Last Vital Signs Temp 37.0 C 02/20/21 12:30 Pulse 97 02/20/21 12:30 Resp 18 02/20/21 12:30 BP 120/73 02/20/21 12:30 Pulse Ox 96 02/20/21 05:23 Pain Score (VAS): 0 I/O: Intake & Output 02/19/21 02/20/21 02/20/21 23:59 07:59 15:59 Intake Total 0 250 Output Total 200 1200 Balance -200 250 -1200 Laboratory Tests 02/20/21 06:06 02/20/21 06:06 02/19/21 02/19/21 02/19/21 12:33 12:33 14:51 WBC RBC Hgb Hct MCV MCH MCHC RDW Plt Count MPV Sodium Potassium Chloride Carbon Dioxide Anion Gap BUN Creatinine Estim Creat Clear Calc Estimated GFR Glucose POC Capillary Glucose 80 Calcium Phosphorus Magnesium Iron 38 L TIBC 146 L % Saturation 26 Ferritin > 2000.00 H Total Bilirubin AST ALT Alkaline Phosphatase Total Protein Albumin Vitamin B12 974.0 H Folate 10.2 02/19/21 02/20/21 02/20/21 18:19 00:25 06:02 WBC RBC Hgb Hct MCV MCH MCHC RDW Plt Count MPV Sodium Potassium Chloride Carbon Dioxide Anion Gap BUN Creatinine Estim Creat Clear Calc Estimated GFR Glucose POC Capillary Glucose 82 91 119 H Calcium Phosphorus Magnesium Iron TIBC % Saturation Ferritin Total Bilirubin AST ALT Alkaline Phosphatase Total Protein Albumin Vitamin B12 Folate 02/20/21 02/20/21 02/20/21 06:06 06:06 12:06 WBC 6.7 RBC 3.52 L Hgb 10.1 L Hct 33.8 L MCV 96.0 MCH 28.7 MCHC 29.9 L RDW 17.7 H Plt Count 195 MPV 11.3 H Sodium 144 Potassium 3.9 Chloride 106 Carbon Dioxide 23 Anion Gap 15 BUN 21 H D Creatinine 3.90 H Estim Creat Clear Calc 18 Estimated GFR 19 L Glucose 126 H POC Capillary Glucose 94 Calcium 9.0 Phosphorus 3.8 Magnesium 2.0 Iron TIBC % Saturation Ferritin Total Bilirubin 9.0 H AST 76 H ALT 43 Alkaline Phosphatase 833 H Total Protein 8.0 Albumin 3.6 Vitamin B12 Folate Post-procedural complaints: none Patient Feedback: Patient satisfied with anesthetic care.
--- NOTE | 2021-02-20 15:37 | WPDGIPROGNO ---
Progress Note: A&P Assessment and Plan (1) Silent aspiration: Code(s): T17.900A - Unspecified foreign body in respiratory tract, part unspecified causing asphyxiation, initial encounter Status: Acute Assessment and Plan: G-tube placed yesterday (he used to have one previously but for unknown reason it was removed) had some nausea and vomiting, primary team ordered ultrasound, CT scan- cirrhosis, possible pancreatitis and dilated PD (2) Nausea & vomiting: Code(s): R11.2 - Nausea with vomiting, unspecified Status: Acute Assessment and Plan: ultrasound reviewed c/w cholelithiasis, also thickening but this can be seen in patient with cirrhosis pending hida scan also possible pancreatitis per CT scan, will check lipase we can give a trial of tube feeding to see if will tolerate continue to monitor and aspiration precautions (3) CVA (cerebral vascular accident): Code(s): I63.9 - Cerebral infarction, unspecified Status: Acute (4) Acute encephalopathy: Code(s): G93.40 - Encephalopathy, unspecified Status: Acute (5) Cirrhosis: Code(s): K74.60 - Unspecified cirrhosis of liver Status: Chronic Assessment and Plan: compensated, normal platelets and inr (6) End stage renal disease on dialysis: Code(s): N18.6 - End stage renal disease; Z99.2 - Dependence on renal dialysis Status: Chronic (7) Cholelithiasis: Code(s): K80.20 - Calculus of gallbladder without cholecystitis without obstruction Status: Acute Subjective Date/time seen: 02/20/21 15:37 Interval history: he had episode of nausea and vomiting last night after tube feeding, then had abdominal ultrasound that showed cirrhosis and hida scan pending (tube feeding on hold), also had some bleeding from peg site but stopped after new dressing applied Review of Systems Review of Systems: All systems reviewed & are unremarkable except as noted in HPI and below Exam Const: General: no acute distress and ill appearing chronically Other: confused, awake HENMT: General nose exam: Normal nares present Eyes: Sclera: sclerae normal Neck: Neck: supple Resp: Auscultation: clear to auscultation bilaterally Cardio: Rate: regular rate GI: GI Palp: Yes Soft to palpation and No Tenderness to palpation present (GI) Auscultation: normal bowel sounds Other: G-tube with old dried blood in dressing, also surgical scars Skin: General skin exam: no rashes or lesions noted Neuro: Cognition (Neuro): abnormal cognition Extrem: General: normal to inspection Objective Data Vital Signs Vital Signs: Vital Signs - 24 hr 02/19/21 15:52 02/19/21 16:00 02/19/21 16:30 Temperature 98.0 F Pulse Rate 70 65 77 Respiratory Rate 18 Blood Pressure 165/85 H 174/90 H 166/93 H Pulse Oximetry 02/19/21 17:00 02/19/21 17:30 02/19/21 18:00 Temperature Pulse Rate 74 82 87 Respiratory Rate Blood Pressure 160/86 H 166/89 H 162/90 H Pulse Oximetry 02/19/21 18:30 02/19/21 19:00 02/19/21 19:16 Temperature 97.6 F Pulse Rate 91 88 81 Respiratory Rate 20 Blood Pressure 166/94 H 152/83 H 145/78 H Pulse Oximetry 02/19/21 20:15 02/19/21 21:43 02/20/21 05:23 Temperature 97.8 F 98.4 F Pulse Rate 75 81 86 Respiratory Rate 17 18 Blood Pressure 152/84 H 143/81 H Pulse Oximetry 96 96 02/20/21 08:40 02/20/21 08:53 02/20/21 09:15 Temperature 99 F Pulse Rate 84 83 87 Respiratory Rate 18 Blood Pressure 145/81 H 146/77 H 136/79 Pulse Oximetry 02/20/21 09:30 02/20/21 09:45 02/20/21 10:00 Temperature Pulse Rate 79 94 76 Respiratory Rate Blood Pressure 123/76 123/73 119/73 Pulse Oximetry 02/20/21 10:15 02/20/21 10:30 02/20/21 10:45 Temperature Pulse Rate 95 99 102 H Respiratory Rate Blood Pressure 115/63 108/62 105/65 Pulse Oximetry 02/20/21 11:00 02/20/21 11:15 02/20/21 11:23 Temperature Pulse Rate 105 H 106 H 1
--- NOTE | 2021-02-20 16:06 | PCOTNOTE ---
Attempted to evaluated pt. Per nurse report, pt. is away from room at nuclear medicine and being tested for covid.
--- NOTE | 2021-02-20 16:17 | PCSTNOTE ---
Therapist attempted several time to complete therapy treatment and another speech pathologist also attempted to make a visit today however patient was with other departments throughout the day and unable to be seen.
[2021-02-20] MEDS: LIDOCAINE 5% PATCH 2 PATCH TRANSDERM (16:28)
--- NOTE | 2021-02-20 16:35 | PC.NURSE ---
Patient went to ultrasound,dialysis;hyda scan,cat scan,back to the floor then back to hyda scan and back to floorfrom 0805 til 1630
[2021-02-20 18:27] LABS: Glucose Point of Care 102 mg/dl (65-105)
--- NOTE | 2021-02-20 18:29 | PM.CNGS ---
Assessment and Plan Assessment and plan (1) Complication of gastrostomy tube: Code(s): K94.20 - Gastrostomy complication, unspecified Status: Acute Assessment and Plan: bleeding at exit site of gastrostomy tube. I placed a couple of silk sutures to better occlude the G-tube site and the bleeding stopped. Observed for a bit and it did not restart. Bandage replaced. History of Present Illness Consult details Consult date: 02/20/21 Reason for consult: wound care ( Patient bleeding at gastrostomy tube site) Requesting physician: Manolo Mcknight MD Narrative: patient is a 60-year-old man who was admitted with silent aspiration. He had a gastrostomy tube done by the PEG technique yesterday. He is had bleeding at the gastrostomy tube site and I was called to see the patient for the bleeding. He has had a stroke and is nonverbal although he is awake. Review of Systems Review of Systems: ROS unobtainable: Yes unobtainable due to medical condition PMFSH Past Medical History Medical History (Updated 02/20/21 @ 18:32 by Misbah Grace MD) Acute CVA (cerebrovascular accident) Acute encephalopathy Anemia, chronic disease BPH (benign prostatic hyperplasia) Chest pain Cholelithiasis Cirrhosis CVA (cerebral vascular accident) Depression Diabetes mellitus End stage renal disease on dialysis On dialysis Thursday and Thursday G tube feedings No longer has a G-tube subsequently removed. Gastroesophageal reflux disease Gout Hemiparesis Hyperlipidemia Hypertension Hypothyroidism Nausea & vomiting Neuropathy Silent aspiration Surgical History Surgical History (Updated 02/12/21 @ 21:19 by Blanche Mills NP) History of abdominal surgery Family History Family History (Updated 02/12/21 @ 21:26 by Blanche Mills NP) Unknown Unknown family medical history Social History Social History (Updated 02/12/21 @ 21:27 by Blanche Mills NP) Social History: The patient has a Terri listed as his power trial attorney. The patient is listed as a full code. The patient also has a listed. The patient is from [facility]. Smoking status: Smoker, status unknown Spiritual care concerns: No Meds Home Medications and Allergies Home Medications Medication Instructions Recorded Confirmed Type Lactobacillus acidophilus 1 tablet PO DAILY 02/12/21 02/12/21 History [Acidophilus] aspirin 81 mg PO DAILY 02/12/21 02/12/21 History atorvastatin 10 mg PO HS 02/12/21 02/12/21 History clopidogrel [Plavix] 75 mg PO DAILY 02/12/21 02/12/21 History darbepoetin yvette in polysorbat 100 mcg SUBCUT WEEKLY 02/12/21 02/12/21 History [Aranesp SureClick (polysorbat)] diltiazem HCl 60 mg PO QID 02/12/21 02/12/21 History gabapentin 100 mg PO TID 02/12/21 02/12/21 History hydrocodone-acetaminophen [Sebastian] 1 tablet PO Q8H 02/12/21 02/12/21 History insulin admin supplies [InPen (for 02/12/21 02/12/21 History Humalog)] levothyroxine 137 mcg PO DAILY 02/12/21 02/12/21 History loperamide [Imodium A-D] 1 mg PO Q6H PRN MDD 8 02/12/21 02/12/21 History losartan 50 mg PO DAILY 02/12/21 02/12/21 History metoprolol tartrate 100 mg PO Q12H 02/12/21 02/12/21 History mirtazapine 15 mg PO HS 02/12/21 02/12/21 History paroxetine HCl 20 mg PO QAM 02/12/21 02/12/21 History sevelamer carbonate 0.8 g PO TID 02/12/21 02/12/21 History terazosin 2 mg PO HS 02/12/21 02/12/21 History Allergies Allergy/AdvReac Type Severity Reaction Status Date / Time No Known Allergies Allergy Verified 02/19/21 13:40 Vital Signs Vital Signs - 24 hr 02/19/21 18:30 02/19/21 19:00 02/19/21 19:16 Temperature 36.4 C Pulse Rate 91 88 81 Respiratory Rate 20 Blood Pressure 166/94 H 152/83 H 145/78 H Pulse Oximetry 02/19/21 20:15 02/19/21 21:43 02/20/21 05:23 Temperature 36.6 C 36.9 C Pulse Rate 75 81 86 Respiratory Rate 17 18 Blood Pressure 152/84 H 143/81 H Pulse Oximetry 96 96
[2021-02-20 18:42] LABS: Hematocrit 33.7 % (42.0-52.0); Hemoglobin 10.1 g/dL (14.0-18.0)
[2021-02-20 18:51] LABS: Lipase 281 U/L (23-300)
[2021-02-20] MEDS: carvediloL 25 MG TABLET FEED TUBE (20:28)
[2021-02-20] MEDS: MIRTAZAPINE 15 MG TABLET FEED TUBE (20:28)
[2021-02-20] MEDS: TERAZOSIN HCL 1 MG CAPSULE 2 MG FEED TUBE (20:29)
[2021-02-20] MEDS: ATORVASTATIN 10 MG TABLET FEED TUBE (20:29)
[2021-02-21] VITALS (7 sets, daily range): BP systolic 105–112; BP diastolic 55–70; PULSE 81–92; RESP 16–18; TEMP 36.3–37.4; O2SAT 92–100
[2021-02-21 00:50] LABS: Glucose Point of Care 118 mg/dl (65-105)
[2021-02-21 06:26] LABS: Glucose Point of Care 113 mg/dl (65-105)
[2021-02-21 06:42] LABS: Basophils Percent Auto 0.3 % (0.2-1.2); Eosinophils Absolute Auto 0.1 K/mm3 (0-0.3); Eosinophils Percent Auto 0.8 % (0-4.4); Hematocrit 30.7 % (42.0-52.0); Hemoglobin 9.1 g/dL (14.0-18.0); Immature Granulocyte Absolute 0.02 K/mm3 (0.00-0.031); Immature Granulocyte Percent A 0.3 % (0-0.5); Lymphocytes Absolute Auto 0.77 K/mm3 (0.9-3.2); Lymphocytes Percent Auto 12.2 % (18.3-44.2); Mean Corpuscular HGB Conc 29.6 g/dl (32-36); Mean Corpuscular Volume 94.5 fl (80-100); Monocytes Absolute Auto 0.5 K/mm3 (0.1-0.6); Monocytes Percent Auto 7.9 % (2.6-8.5); Neutrophils Percent Auto 78.5 % (45.5-73.1); Platelet Count Result 189 k/mm3 (150-375); Red Blood Count 3.25 M/mm3 (4.6-6.20); White Blood Count 6.3 K/mm3 (4.5-10.0)
[2021-02-21] MEDS: LEVOTHYROXINE SODIUM 112 MCG, LEVOTHYROXINE SODIUM 25 MCG 137 MCG FEED TUBE (06:43)
[2021-02-21 06:53] LABS: Alanine Aminotransferase 40 U/L (4-50); Albumin Level 3.6 g/dL (3.5-5.1); Alkaline Phosphatase 807 U/L (38-126); Anion Gap 14 mmol/L (8-16); Aspartate Amino Transferase 92 U/L (17-59); Bilirubin Direct 4.7 mg/dL (0-0.3); Bilirubin,Total 8.7 mg/dL (0.2-1.3); Blood Urea Nitrogen 21 mg/dL (9-20); CRP 8.8 mg/dL (<1.0); Calcium 8.8 mg/dL (8.4-10.2); Carbon Dioxide 29 mmol/L (22-30); Chloride 100 mmol/L (98-107); Estimated CRCL calculation 23 ml/min; Estimated Glomerular Filt Rate 26; Glucose 121 mg/dL (65-110); Lactate Dehydrogenase 410 U/L (313-618); Lipase 216 U/L (23-300); Phosphorus 3.4 mg/dL (2.5-4.5); Potassium 3.7 mmol/L (3.4-5.0); Sodium 143 mmol/L (137-145)
[2021-02-21 07:25] LABS: Hypochromasia 1+ (NORMAL); Platelet Estimate Adequate (Adequate)
--- NOTE | 2021-02-21 08:21 | PM.PNCARD ---
Progress Note: A&P Assessment and Plan (1) Elevated troponin: Code(s): R77.8 - Other specified abnormalities of plasma proteins Status: Acute Assessment and Plan: Mild and flat. Probably related to ESRD. No symptoms to suggest ACS. EKG is nonspecific. Echo showed no significant wall motion abnormalities with EF 55-60%. Recheck Troponin is negative. His chest pain could be musculoskeletal as it is somewhat reproducible by palpation or GI related with pancreatitis/dilate bile ducts? No further cardiac workup is needed. (2) Hypertension: Code(s): I10 - Essential (primary) hypertension Status: Chronic Assessment and Plan: High but he is not getting his PO meds due to NPO for aspiration. Got PEG tube placed on 02/19/21 and hopefully will be able to receive medications from it. He has been getting Hydralazine 10 mg IV q 4 hrs prn SBP>150 mmHg. Stopped Diltiazem due to mild bradycardia. On Amlodipine 10 mg daily and Coreg 25 mg BID, Losartan via PEG. Stop Amlodipine due to low normal BP. (3) Hyperlipidemia: Code(s): E78.5 - Hyperlipidemia, unspecified Status: Chronic Assessment and Plan: On Atorvastatin. (4) End stage renal disease on dialysis: Code(s): N18.6 - End stage renal disease; Z99.2 - Dependence on renal dialysis Status: Chronic Subjective Date/time seen: 02/21/21 08:21 Patient reports reproducible chest pain by palpation and some abdominal pain and nausea. Exam Const: General: cooperative, healthy appearing and comfortable Resp: Auscultation: clear to auscultation bilaterally, no crackles, no rales, no rhonchi and no wheezes Cardio: Jugular venous distension: no JVD Rate: regular rate Rhythm: regular rhythm Heart sounds: no murmurs GI: GI Palp: Yes abdominal tenderness and Yes Soft to palpation Neuro: General: oriented to person, oriented to place and oriented to time Extrem: Right lower extremity: no edema Left lower extremity: no edema Objective Data Vital Signs Vital Signs: Vital Signs - 24 hr 02/20/21 08:40 02/20/21 08:53 02/20/21 09:15 Temperature 99 F Pulse Rate 84 83 87 Respiratory Rate 18 Blood Pressure 145/81 H 146/77 H 136/79 Pulse Oximetry 02/20/21 09:30 02/20/21 09:45 02/20/21 10:00 Temperature Pulse Rate 79 94 76 Respiratory Rate Blood Pressure 123/76 123/73 119/73 Pulse Oximetry 02/20/21 10:15 02/20/21 10:30 02/20/21 10:45 Temperature Pulse Rate 95 99 102 H Respiratory Rate Blood Pressure 115/63 108/62 105/65 Pulse Oximetry 02/20/21 11:00 02/20/21 11:15 02/20/21 11:23 Temperature Pulse Rate 105 H 106 H 106 H Respiratory Rate Blood Pressure 105/62 96/66 L 105/60 Pulse Oximetry 02/20/21 11:30 02/20/21 11:45 02/20/21 12:00 Temperature Pulse Rate 106 H 102 H 101 H Respiratory Rate Blood Pressure 110/70 110/68 117/71 Pulse Oximetry 02/20/21 12:23 02/20/21 12:30 02/20/21 15:00 Temperature 98.6 F 98.2 F Pulse Rate 98 97 94 Respiratory Rate 18 16 Blood Pressure 105/71 120/73 102/64 Pulse Oximetry 99 02/20/21 19:57 02/20/21 20:00 02/20/21 20:28 Temperature 98.4 F Pulse Rate 103 H 63 Respiratory Rate 18 Blood Pressure 142/70 H Pulse Oximetry 97 99 02/20/21 21:01 02/20/21 23:44 02/21/21 03:47 Temperature 98.3 F 97.8 F Pulse Rate 63 91 91 Respiratory Rate 18 18 18 Blood Pressure 104/60 105/55 L Pulse Oximetry 97 100 98 02/21/21 08:00 Temperature 97.4 F L Pulse Rate 88 Respiratory Rate 16 Blood Pressure 110/61 Pulse Oximetry 97 Intake/Output Intake/Output: Intake & Output 02/18/21 02/19/21 02/20/21 02/21/21 23:59 23:59 23:59 23:59 Intake Total 0 200 250 Output Total 200 1200 Balance 0 0 -950 Meds/Results Medications: Active Medications Generic Name Dose Route Start Last Admin Trade Name Freq PRN Reason Stop Dose Admin Acetaminophen 650 mg 02/20/21 08:22 Acetaminophen Elixir 3
--- NOTE | 2021-02-21 09:39 | PCOTNOTE ---
Spoke with nurse regarding appropriateness of skilled OT services based on pt. dependency at baseline, nurse reports she will follow up with . [facility] will follow-up to confirm cancelation of orders.
[2021-02-21] MEDS: LIDOCAINE 5% PATCH 2 PATCH TRANSDERM (10:08)
--- NOTE | 2021-02-21 12:00 | PM.IMPN ---
Progress Note: A&P Assessment and Plan (1) Hyperbilirubinemia: Code(s): E80.6 - Other disorders of bilirubin metabolism Status: Acute Assessment and Plan: AST/ALT normal on admission. AST up to 92. AP elevated to 833 and TB climbed to 9.0 all direct bili. Ammonia level negative. EGD 02/19 was normal - no ulcer or gastritis. Lipase 486 on admission but normal now. RUQ US 02/20 with findings suggestive of some surface nodularity to the liver suspicious for cirrhosis. Also with cholelithiasis with nonspecific minimal gallbladder wall thickening and trace amount of pericholecystic fluid and increased prominence of the portal veins which can be seen in the setting of portal venous hypertension. HIDA 02/20 showing delayed passage of activity to the bowel suspicious for common duct stricture from pancreatic adenocarcinoma. ERCP is recommended. CT A/P 02/20 showing cholelithiasis with marked dilation of the main pancreatic duct and intra and extrahepatic bile ducts which could be related to a nonvisualized obstructing gallstone as well as mild peripancreatic inflammatory stranding to indicate secondary acute interstitial pancreatitis. Also noted is cirrhosis with a small right pleural effusion, a small amount of ascites in the abdomen and nonobstructing nephrolithiasis versus medullary nephrocalcinosis. ERCP vs transfer for EUS. GI following and will discuss. Spoke with GI. MRCP ordered and pending. He felt hospice if mass noted. Okay to resume TF at low rate (2) Cirrhosis: Code(s): K74.60 - Unspecified cirrhosis of liver Status: Chronic Assessment and Plan: As above. (3) Chest pain: Code(s): R07.9 - Chest pain, unspecified Status: Acute Assessment and Plan: Patient admitted for chest pain. EKG showed bradycardia (56) with LVH, and borderline T wave changes in inferior lead. Echo showing normal LV size with mild concentric hypertrophy, mild hypokinesis of the basal inferior and lateral pelletier with EF of 55-60%. Normal diastolic function. Mild pulmonary hypertension. Right ventricle is not well seen. Troponin elevated but flat to 0.046 felt related to ESRD. Cardiology was consulted. Cardiology felt no further workup was required. Patient still having chest pain - gastric reflux? Cardiac? Repeat EKG showing no change and Troponin normal now. Continue Lipitor, aspirin and Coreg. Plan to hold Plavix through 02/23/2021. Resume on 02/24/2021. (4) Silent aspiration: Code(s): T17.900A - Unspecified foreign body in respiratory tract, part unspecified causing asphyxiation, initial encounter Status: Acute Assessment and Plan: Patient failed modified barium swallow. He has silent aspiration. Clinically appears that he has had a G-tube in the past. GI was consulted and patient had PEG tube placed 02/19 and he tolerated the procedure well. Blackish liquid but possible bili and not old blood. Guaiac won't be helpful if positive but will be if negative. Resume TF? Continue medications with TF. (5) Elevated troponin: Code(s): R77.8 - Other specified abnormalities of plasma proteins Status: Acute Assessment and Plan: As above. Appreciate cardiology input. (6) End stage renal disease on dialysis: Code(s): N18.6 - End stage renal disease; Z99.2 - Dependence on renal dialysis Status: Chronic Assessment and Plan: Patient with end-stage renal disease. He normally has dialysis on Thursday. Nephrology following and appreciate their input. Continue dialysis per Nephrology instructions. (7) Diabetes mellitus: Code(s): E11.9 - Type 2 diabetes mellitus without complications Status: Chronic Assessment and Plan: A1c 5.1. The patient's blood glucose was reviewed on 02/21 Glucose remains well controlled. Continue AccuCheks covering with sliding scale. Hypoglycemia protocol available as needed. Continue monito
[2021-02-21 12:05] LABS: Glucose Point of Care 111 mg/dl (65-105)
[2021-02-21 12:15] LABS: Glucose Point of Care 102 mg/dl (65-105)
[2021-02-21] MEDS: GABAPENTIN 100 MG CAPSULE FEED TUBE ×3 (12:41→21:01)
[2021-02-21] MEDS: ACIDOPHILUS/BULGARICUS CHEWABLE TABLET 1 TABLET FEED TUBE (12:42)
[2021-02-21] MEDS: PARoxetine 20 MG TABLET FEED TUBE (12:42)
[2021-02-21] MEDS: carvediloL 25 MG TABLET FEED TUBE ×2 (12:43→21:03)
[2021-02-21 13:28] LABS: Creatine Kinase 42 U/L (55-170)
--- NOTE | 2021-02-21 14:03 | PM.PNNEP ---
Progress Note: A&P Assessment and Plan (1) End stage renal disease: Code(s): N18.6 - End stage renal disease Status: Chronic Assessment and Plan: HD tomorrow. Volume status looks okay. potassium and bicarbonate okay. (2) Chest pain: Code(s): R07.9 - Chest pain, unspecified Status: Acute Assessment and Plan: Resolved issues with bradycardia -- Cardiology following (3) Anemia: Code(s): D64.9 - Anemia, unspecified Status: Chronic Assessment and Plan: presumably related to ESRD Epogen with HD (4) Hypertension: Code(s): I10 - Essential (primary) hypertension Status: Chronic Assessment and Plan: blood pressure under pretty good control with systolic around 100-130. He is on Coreg, and Hytrin . Amlodipine was stopped because of low blood pressure yesterday. (5) Diabetes mellitus: Code(s): E11.9 - Type 2 diabetes mellitus without complications Status: Chronic Assessment and Plan: follow accuchecks on SSI Subjective Date/time seen: 02/21/21 14:03 Interval history: Patient feels okay. He has a little nausea. No belly pain today. He denies shortness of breath. He had dialysis yesterday. He had a COVID test and so is on isolation. Exam Narrative: General: AA male laying in bed in NAD Heart: normal S1 and S2; no rub Lungs: clear to auscultation Abdomen: soft, nontender, nondistended, positive bowel sounds Extremities: no edema Or cyanosis Skin: no rash or subcu nodules Objective Data Vital Signs Vital Signs: Vital Signs - 24 hr 02/20/21 15:00 02/20/21 19:57 02/20/21 20:00 Temperature 36.8 C 36.9 C Pulse Rate 94 103 H Respiratory Rate 16 18 Blood Pressure 102/64 142/70 H Pulse Oximetry 99 97 99 02/20/21 20:28 02/20/21 21:01 02/20/21 23:44 Temperature 36.8 C Pulse Rate 63 63 91 Respiratory Rate 18 18 Blood Pressure 104/60 Pulse Oximetry 97 100 02/21/21 03:47 02/21/21 08:00 02/21/21 12:00 Temperature 36.6 C 36.3 C L 36.8 C Pulse Rate 91 88 92 Respiratory Rate 18 16 18 Blood Pressure 105/55 L 110/61 112/58 L Pulse Oximetry 98 97 96 02/21/21 12:43 Temperature Pulse Rate 88 Respiratory Rate Blood Pressure Pulse Oximetry Intake/Output Intake/Output: Intake & Output 02/18/21 02/19/21 02/20/21 02/21/21 23:59 23:59 23:59 23:59 Intake Total 0 200 250 Output Total 200 1200 Balance 0 0 -950 Meds/Results Medications: Active Medications Generic Name Dose Route Start Last Admin Trade Name Freq PRN Reason Stop Dose Admin Acetaminophen 650 mg 02/20/21 08:22 Acetaminophen Elixir 325 Mg/10.15 Ml Udc FEED TUBE Q4H PRN Mild Pain (1-3) Al Hydrox/Mg Hydrox/Simethicone 30 ml 02/20/21 08:08 Mag Hydrox/Al Hydrox/Simeth 30 Ml Udc FEED TUBE Q6H PRN Indigestion Aspirin 81 mg 02/21/21 08:00 02/21/21 10:49 Aspirin 81 Mg Chewable Tablet FEED TUBE Not Given DAILY@0800 SAM Atorvastatin Calcium 10 mg 02/20/21 21:00 02/20/21 20:29 Atorvastatin 10 Mg Tablet FEED TUBE 10 mg HS SAM Administration Carvedilol 25 mg 02/20/21 09:00 02/21/21 12:43 Carvedilol 25 Mg Tablet FEED TUBE 25 mg Q12HR SAM Administration Dextrose 12.5 gm 02/12/21 21:03 02/19/21 12:27 Dextrose 50% 25 Gm/50 Ml Syringe IV PUSH 12.5 gm PRN PRN Administration Hypoglycemia Protocol Gabapentin 100 mg 02/20/21 09:00 02/21/21 12:41 Gabapentin 100 Mg Capsule FEED TUBE 100 mg TID SAM Administration Glucagon 1 mg 02/12/21 21:03 Glucagon For Inj 1 Mg Vial IM PRN PRN Hypoglycemia Protocol Glucose 15 gm 02/12/21 21:03 Glucose Oral Gel 15 Gm Of Glucse In 37.5 Gm Tube PO PRN PRN Hypoglycemia Protocol Hydralazine HCl 10 mg 02/16/21 08:24 02/18/21 14:13 Hydralazine Hcl 20 Mg/Ml Vial IV PUSH 10 mg Q4H PRN Administration Blood
--- NOTE | 2021-02-21 16:41 | WPDGIPROGNO ---
Progress Note: A&P Assessment and Plan (1) Nausea & vomiting: Code(s): R11.2 - Nausea with vomiting, unspecified Status: Acute Assessment and Plan: work up and imaging of GB/liver revealed dilated bile and pancreatic duct, HIDA scan concerning for possible pancreatic mass. Will get MRCP but he does not have obstructive jaundice. I think that if he has cancer then ercp will be only for diagnostic purposes and I would rather not to if possible since he has too many comorbidities (CVA with confusion, esrd on dialysis, cirrhosis, etc) ok to start low dose of tube feeding and reassess (2) Abnormal finding of biliary tract: Code(s): R19.8 - Other specified symptoms and signs involving the digestive system and abdomen Status: Acute Assessment and Plan: will get mrcp to check pancreas and biliary system (3) Acute encephalopathy: Code(s): G93.40 - Encephalopathy, unspecified Status: Acute (4) Silent aspiration: Code(s): T17.900A - Unspecified foreign body in respiratory tract, part unspecified causing asphyxiation, initial encounter Status: Acute Assessment and Plan: it was the reason why peg was placed, still he will be at risk of aspiration because current mental status start low rate and reassess (5) End stage renal disease: Code(s): N18.6 - End stage renal disease Status: Chronic (6) Cirrhosis: Code(s): K74.60 - Unspecified cirrhosis of liver Status: Chronic (7) CVA (cerebral vascular accident): Code(s): I63.9 - Cerebral infarction, unspecified Status: Acute (8) Complication of gastrostomy tube: Code(s): K94.20 - Gastrostomy complication, unspecified Status: Acute Assessment and Plan: had some bleeding but stopped after placed sutures it is clean today hold plavix Subjective Date/time seen: 02/21/21 16:41 Interval history: peg site bleeding resolved after surgery placed stitches Review of Systems Review of Systems: All systems reviewed & are unremarkable except as noted in HPI and below Exam Const: General: no acute distress and ill appearing chronically Other: awake but non-verbal HENMT: General nose exam: Normal nares present Eyes: Sclera: sclerae normal Neck: Neck: supple Resp: Auscultation: clear to auscultation bilaterally Cardio: Rate: regular rate GI: GI Palp: Yes Soft to palpation and No Guarding due to palpation present (GI) Auscultation: normal bowel sounds Other: G-tube in place, no more bleeding, dry and clean Skin: General skin exam: no rashes or lesions noted Neuro: Other: awake, he is non-verbal Extrem: Other: graft in left arm (for dialysis) Objective Data Vital Signs Vital Signs: Vital Signs - 24 hr 02/20/21 19:57 02/20/21 20:00 02/20/21 20:28 Temperature 98.4 F Pulse Rate 103 H 63 Respiratory Rate 18 Blood Pressure 142/70 H Pulse Oximetry 97 99 02/20/21 21:01 02/20/21 23:44 02/21/21 03:47 Temperature 98.3 F 97.8 F Pulse Rate 63 91 91 Respiratory Rate 18 18 18 Blood Pressure 104/60 105/55 L Pulse Oximetry 97 100 98 02/21/21 08:00 02/21/21 12:00 02/21/21 12:43 Temperature 97.4 F L 98.2 F Pulse Rate 88 92 88 Respiratory Rate 16 18 Blood Pressure 110/61 112/58 L Pulse Oximetry 97 96 02/21/21 16:00 Temperature 99.3 F Pulse Rate 81 Respiratory Rate 18 Blood Pressure 112/70 Pulse Oximetry 92 Intake/Output Intake/Output: Intake & Output 02/18/21 02/19/21 02/20/21 02/21/21 23:59 23:59 23:59 23:59 Intake Total 0 200 250 Output Total 200 1200 Balance 0 0 -950 Meds/Results Medications: Active Medications Generic Name Dose Route Start Last Admin Trade Name Stefanoq PRN Reason Stop Dose Admin Acetaminophen 650 mg 02/20/21 08:22 Acetaminophen Elixir 325 Mg/10.15 Ml Udc FEED TUBE Q4H PRN Mild Pain (1-3) Al Hydrox/Mg Hydrox/Simethicone 30 ml 02/20/21 08:08 Mag Hydrox/Al Hydrox/Simeth
[2021-02-21 17:08] LABS: Glucose Point of Care 114 mg/dl (65-105)
[2021-02-21 17:37] LABS: SARS-CoV-2 RNA PCR Negative
--- NOTE | 2021-02-21 18:15 | PC.NURSE ---
Patient vomited in MRI patient,patient cleaned up. Aspirated 100cc brown fluid from the stomach. Dr Haddad called and given update and ordered Reglan 5mg IVP Q6HR ordered and start tube feeding at 10ml /hr at 1999.
[2021-02-21] MEDS: METOCLOPRAMIDE HCL INJ 10 MG/2 ML VIAL 5 MG IV PUSH (18:38)
[2021-02-21] MEDS: ATORVASTATIN 10 MG TABLET FEED TUBE (21:02)
[2021-02-21] MEDS: TERAZOSIN HCL 1 MG CAPSULE 2 MG FEED TUBE (21:06)
[2021-02-21] MEDS: MIRTAZAPINE 15 MG TABLET FEED TUBE (21:07)
[2021-02-22] VITALS (19 sets, daily range): BP systolic 78–122; BP diastolic 53–69; PULSE 72–88; RESP 14–20; TEMP 36.1–37; O2SAT 93–98
[2021-02-22 00:31] LABS: Glucose Point of Care 123 mg/dl (65-105)
[2021-02-22] MEDS: LEVOTHYROXINE SODIUM 112 MCG, LEVOTHYROXINE SODIUM 25 MCG 137 MCG FEED TUBE (06:26)
[2021-02-22] MEDS: METOCLOPRAMIDE HCL INJ 10 MG/2 ML VIAL 5 MG IV PUSH ×4 (06:26→17:59)
[2021-02-22 06:52] LABS: Basophils Percent Auto 0.2 % (0.2-1.2); Eosinophils Absolute Auto 0.1 K/mm3 (0-0.3); Eosinophils Percent Auto 1.3 % (0-4.4); Hematocrit 31.4 % (42.0-52.0); Hemoglobin 9.2 g/dL (14.0-18.0); Immature Granulocyte Absolute 0.03 K/mm3 (0.00-0.031); Immature Granulocyte Percent A 0.5 % (0-0.5); Lymphocytes Absolute Auto 0.79 K/mm3 (0.9-3.2); Lymphocytes Percent Auto 14.1 % (18.3-44.2); Mean Corpuscular HGB Conc 29.3 g/dl (32-36); Mean Corpuscular Hemoglobin 28.2 pg (26-34); Mean Corpuscular Volume 96.3 fl (80-100); Mean Platelet Volume 11.2 fl (7.4-10.4); Monocytes Absolute Auto 0.4 K/mm3 (0.1-0.6); Monocytes Percent Auto 6.8 % (2.6-8.5); Neutrophils Absolute Auto 4.3 K/mm3 (1.3-6.7); Neutrophils Percent Auto 77.1 % (45.5-73.1); Platelet Count Result 199 k/mm3 (150-375); Red Blood Count 3.26 M/mm3 (4.6-6.20); Red Cell Distribution Width 18.4 % (11.5-14.5); White Blood Count 5.6 K/mm3 (4.5-10.0)
[2021-02-22 07:10] LABS: Glucose Point of Care 112 mg/dl (65-105)
[2021-02-22 07:11] LABS: Alanine Aminotransferase 42 U/L (4-50); Albumin Level 3.8 g/dL (3.5-5.1); Alkaline Phosphatase 799 U/L (38-126); Anion Gap 12 mmol/L (8-16); Aspartate Amino Transferase 89 U/L (17-59); Bilirubin,Total 6.5 mg/dL (0.2-1.3); Blood Urea Nitrogen 37 mg/dL (9-20); Calcium 9.6 mg/dL (8.4-10.2); Carbon Dioxide 30 mmol/L (22-30); Chloride 100 mmol/L (98-107); Estimated CRCL calculation 16 ml/min; Estimated Glomerular Filt Rate 17; Glucose 148 mg/dL (65-110); Magnesium 2.3 mg/dL (1.6-2.3); Phosphorus 3.7 mg/dL (2.5-4.5); Potassium 3.6 mmol/L (3.4-5.0); Sodium 142 mmol/L (137-145)
--- NOTE | 2021-02-22 07:18 | PM.PNCARD ---
Progress Note: A&P Assessment and Plan (1) Elevated troponin: Code(s): R77.8 - Other specified abnormalities of plasma proteins Status: Acute Assessment and Plan: Mild and flat. Probably related to ESRD. No symptoms to suggest ACS. EKG is nonspecific. Echo showed no significant wall motion abnormalities with EF 55-60%. Recheck Troponin is negative. His chest pain could be musculoskeletal as it is somewhat reproducible by palpation or GI related with pancreatitis/dilated bile ducts? Going for MRCP today. No further cardiac workup is needed. (2) Hypertension: Code(s): I10 - Essential (primary) hypertension Status: Chronic Assessment and Plan: Low normal. Got PEG tube placed on 02/19/21 and receiving BP medication. Stopped Diltiazem due to mild bradycardia. Coreg 25 mg BID, decrease Losartan 25 mg daily via PEG. (3) Hyperlipidemia: Code(s): E78.5 - Hyperlipidemia, unspecified Status: Chronic Assessment and Plan: On Atorvastatin. (4) End stage renal disease on dialysis: Code(s): N18.6 - End stage renal disease; Z99.2 - Dependence on renal dialysis Status: Chronic Subjective Date/time seen: 02/22/21 07:18 Had some nausea/vomiting last night. No chest pain or sob today. Exam Const: General: cooperative, healthy appearing and comfortable Resp: Auscultation: clear to auscultation bilaterally, no crackles, no rales, no rhonchi and no wheezes Cardio: Jugular venous distension: no JVD Rate: regular rate Rhythm: regular rhythm Heart sounds: no murmurs GI: GI Palp: Yes abdominal tenderness and Yes Soft to palpation Neuro: General: oriented to person, oriented to place and oriented to time Extrem: Right lower extremity: no edema Left lower extremity: no edema Objective Data Vital Signs Vital Signs: Vital Signs - 24 hr 02/21/21 08:00 02/21/21 12:00 02/21/21 12:43 Temperature 97.4 F L 98.2 F Pulse Rate 88 92 88 Respiratory Rate 16 18 Blood Pressure 110/61 112/58 L Pulse Oximetry 97 96 02/21/21 16:00 02/21/21 20:00 02/21/21 21:03 Temperature 99.3 F 97.9 F Pulse Rate 81 88 88 Respiratory Rate 18 16 Blood Pressure 112/70 106/63 Pulse Oximetry 92 100 02/22/21 00:00 02/22/21 01:15 02/22/21 04:00 Temperature 97.0 F L 97.4 F L Pulse Rate 88 76 78 Respiratory Rate 16 16 Blood Pressure 105/69 105/61 Pulse Oximetry 94 93 95 Intake/Output Intake/Output: Intake & Output 02/19/21 02/20/21 02/21/21 02/22/21 23:59 23:59 23:59 23:59 Intake Total 200 250 90 Output Total 200 1200 0 Balance 0 -950 90 Meds/Results Medications: Active Medications Generic Name Dose Route Start Last Admin Trade Name Freq PRN Reason Stop Dose Admin Acetaminophen 650 mg 02/20/21 08:22 Acetaminophen Elixir 325 Mg/10.15 Ml Udc FEED TUBE Q4H PRN Mild Pain (1-3) Al Hydrox/Mg Hydrox/Simethicone 30 ml 02/20/21 08:08 Mag Hydrox/Al Hydrox/Simeth 30 Ml Udc FEED TUBE Q6H PRN Indigestion Aspirin 81 mg 02/21/21 08:00 02/21/21 10:49 Aspirin 81 Mg Chewable Tablet FEED TUBE Not Given DAILY@0800 SAM Atorvastatin Calcium 10 mg 02/20/21 21:00 02/21/21 21:02 Atorvastatin 10 Mg Tablet FEED TUBE 10 mg HS SAM Administration Carvedilol 25 mg 02/20/21 09:00 02/21/21 21:03 Carvedilol 25 Mg Tablet FEED TUBE 25 mg Q12HR SAM Administration Dextrose 12.5 gm 02/12/21 21:03 02/19/21 12:27 Dextrose 50% 25 Gm/50 Ml Syringe IV PUSH 12.5 gm PRN PRN Administration Hypoglycemia Protocol Epoetin Tarik-epbx 10,000 units 02/22/21 18:00 Epoetin Tarik-Epbx 10,000 Units/Ml Vial IV PUSH MoWeFr@1800 SAM Gabapentin 100 mg 02/20/21 09:00 02/21/21 21:01 Gabapentin 100 Mg Capsule FEED TUBE 100 mg TID SAM Administration Glucagon 1 mg 02/12/21 21:03 Glucagon For Inj 1 Mg Vial IM PRN PRN Hypoglycemia Protocol Glucose 15 gm 02/12/21 21:03 Gluc
[2021-02-22 09:03] LABS: Gastric Negative Control Negative; Gastric Positive Control Positive; Occult Blood Gastric Fluid Positive
[2021-02-22] MEDS: ACIDOPHILUS/BULGARICUS CHEWABLE TABLET 1 TABLET FEED TUBE (09:27)
[2021-02-22] MEDS: SEVELAMER CARBONATE 800 MG TABLET FEED TUBE ×3 (09:27→17:28)
[2021-02-22] MEDS: GABAPENTIN 100 MG CAPSULE FEED TUBE ×3 (09:29→17:28)
[2021-02-22] MEDS: LIDOCAINE 5% PATCH 2 PATCH TRANSDERM (09:30)
[2021-02-22] MEDS: carvediloL 25 MG TABLET FEED TUBE ×2 (09:30→21:02)
[2021-02-22] MEDS: LOSARTAN POTASSIUM 25 MG TABLET FEED TUBE (09:30)
[2021-02-22] MEDS: PARoxetine 20 MG TABLET FEED TUBE (09:32)
--- NOTE | 2021-02-22 11:16 | PCNFU ---
Nutrition Follow-Up Complete: Inadequate oral intake related to diet order as evidenced by NPO. Goal: Patient to meet estimated nutritional needs. Patient is progressing towards goal. We will continue current goal. Pt current nutrition is Nepro at 20 ml/hr over 22 hours. Last recorded weight is 81.9 kg, down from 83.1 kg. Bowel Motility:+BM noted 02/22 Labs Reviewed:Glu 148,BUN 37,Cr 4.4,GFR 17, Hct 31.4, Hgb 9.2 Meds Noted:Renvela,Remeron, Neurontin, Coreg, Lipitor, Cozaar. Additional Notes:Nutrition follow up. Patient having MRCP today. Gtube bleeding has stopped. Tube feeding resumed of Nepro. Currently at 20ml/hr. Goal rate is 50 ml/hr providing 1980 kcals/89 gms protein/799 ml water. Free water flush at 50 ml q 4 hours. Skin: WNL. Monitoring: Follow up every Thursday and Thursday.
[2021-02-22 12:00] LABS: Glucose Point of Care 123 mg/dl (65-105)
--- NOTE | 2021-02-22 13:40 | WPDGIPROGNO ---
Progress Note: A&P Assessment and Plan (1) Common bile duct dilatation: Code(s): K83.8 - Other specified diseases of biliary tract Status: Acute Assessment and Plan: MRCP finding reviewed, showed segmental strictures at the head of the pancreas and both the distal common bile duct and distal main pancreatic duct with significant upstream dilation of main pancreatic duct as well as the more proximal intra and extrahepatic bile ducts. This raises concern for a pancreatic adenocarcinoma although no discrete masses identified another differential could be sequela of chronic pancreatitis, also mild edema in the fat surrounding the tail of the pancreas suspicious for acute interstitial pancreatitis and multiple cystic lesions along the dilated main pancreatic duct most likely combination of dilated side branches and pancreatic pseudocysts related to chronic pancreatitis. also had elevated bilirubin now 6 (peak 9) he has many comorbidities including CVA with encephalopathy, cirrhosis, esrd, etc to undergo ERCP for diagnostic purpose. We need to talk to and decide plan of care (I called her today but did not answer)- this also was discussed with hospitalist, if bilirubin still persistent elevated probably can entertain the idea of ercp with stenting for palliative purpose but still prognosis is guarded if indeed is malignancy (could be also sequela from chronic pancreatitis) (2) Hyperbilirubinemia: Code(s): E80.6 - Other disorders of bilirubin metabolism Status: Acute Assessment and Plan: trend liver enzymes, few days ago bili 9 and slowly trending down (3) Nausea & vomiting: Code(s): R11.2 - Nausea with vomiting, unspecified Status: Acute Assessment and Plan: I placed PEG because history of silent aspiration and he was pulling out NGT, he was not taking his meds or having nutrition. After G-tube placement he had n/v, further work-up found dilated PD/BD concerning for pancreatic mass however no discrete mass seen. (4) CVA (cerebral vascular accident): Code(s): I63.9 - Cerebral infarction, unspecified Status: Acute (5) Silent aspiration: Code(s): T17.900A - Unspecified foreign body in respiratory tract, part unspecified causing asphyxiation, initial encounter Status: Acute (6) End stage renal disease: Code(s): N18.6 - End stage renal disease Status: Chronic Assessment and Plan: on dialysis Subjective Date/time seen: 02/22/21 13:40 Interval history: tolerating tube feeding at 20 ml/h Review of Systems Review of Systems: All systems reviewed & are unremarkable except as noted in HPI and below Exam Const: General: no acute distress and ill appearing chronically Other: awake, alert only to person, he is confused HENMT: General nose exam: Normal nares present Eyes: Sclera: sclerae normal Neck: Neck: supple Resp: Auscultation: clear to auscultation bilaterally Cardio: Rate: regular rate GI: GI Palp: Yes Soft to palpation and No Guarding due to palpation present (GI) Auscultation: normal bowel sounds Other: G-tube in place, no more bleeding, dry and clean Skin: General skin exam: no rashes or lesions noted Neuro: Other: awake, confused Extrem: Other: graft in left arm (for dialysis) Objective Data Vital Signs Vital Signs: Vital Signs - 24 hr 02/21/21 16:00 02/21/21 20:00 02/21/21 21:03 Temperature 99.3 F 97.9 F Pulse Rate 81 88 88 Respiratory Rate 18 16 Blood Pressure 112/70 106/63 Pulse Oximetry 92 100 02/22/21 00:00 02/22/21 01:15 02/22/21 04:00 Temperature 97.0 F L 97.4 F L Pulse Rate 88 76 78 Respiratory Rate 16 16 Blood Pressure 105/69 105/61 Pulse Oximetry 94 93 95 02/22/21 09:30 02/22/21 09:37 Temperature Pulse Rate 72 Respiratory Rate Blood Pressure 122/68 Pulse Oximetry Intake/Output Intake/Output: Intake & Output 02/19/21 02/20/21 02/21/21 02/22/21 23:59 23:59 23
--- NOTE | 2021-02-22 13:47 | PCOTNOTE ---
Followed up with nurse, she forgot to cancel orders, will do so after she finishes lunch
--- NOTE | 2021-02-22 14:04 | PM.IMPN ---
Progress Note: A&P Assessment and Plan (1) Hyperbilirubinemia: Code(s): E80.6 - Other disorders of bilirubin metabolism Status: Acute Assessment and Plan: Following studies performed: AST/ALT normal on admission. AST up to 92. AP elevated to 833 and TB climbed to 9.0 all direct bili. Ammonia level negative. EGD 02/19 was normal - no ulcer or gastritis. Lipase 486 on admission but normal now. RUQ US 02/20 with findings suggestive of some surface nodularity to the liver suspicious for cirrhosis. Also with cholelithiasis with nonspecific minimal gallbladder wall thickening and trace amount of pericholecystic fluid and increased prominence of the portal veins which can be seen in the setting of portal venous hypertension. HIDA 02/20 showing delayed passage of activity to the bowel suspicious for common duct stricture from pancreatic adenocarcinoma. ERCP is recommended. CT A/P 02/20 showing cholelithiasis with marked dilation of the main pancreatic duct and intra and extrahepatic bile ducts which could be related to a nonvisualized obstructing gallstone as well as mild peripancreatic inflammatory stranding to indicate secondary acute interstitial pancreatitis. Also noted is cirrhosis with a small right pleural effusion, a small amount of ascites in the abdomen and nonobstructing nephrolithiasis versus medullary nephrocalcinosis. MRCP showing segmental strictures at the head of the pancreas and both the distal common bile duct and distal main pancreatic duct with significant upstream dilation of main pancreatic duct as well as the more proximal intra and extrahepatic bile ducts. This raises concern for a pancreatic adenocarcinoma although no discrete masses identified. This could also represent sequela of chronic pancreatitis. Spoke with GI who felt the patiet was too high risk for sphnicterotomy and stent. Spoke with and discussed the possibility of pancreatic cancer and that patient would need biopsy to make the diagnosis. She felt that the patient has had many health challenges over the past 5 years and that she did not want to put him through another ordeal. She wishes not to proceed at this time but wants to discuss with her children. Discussed hospice as an option as well. 32 minutes spent on plan of care for this patient. (2) Cirrhosis: Code(s): K74.60 - Unspecified cirrhosis of liver Status: Chronic Assessment and Plan: As above. (3) Chest pain: Code(s): R07.9 - Chest pain, unspecified Status: Acute Assessment and Plan: Patient admitted for chest pain. EKG showed bradycardia (56) with LVH, and borderline T wave changes in inferior lead. Echo showing normal LV size with mild concentric hypertrophy, mild hypokinesis of the basal inferior and lateral pelletier with EF of 55-60%. Normal diastolic function. Mild pulmonary hypertension. Right ventricle is not well seen. Troponin elevated but flat to 0.046 felt related to ESRD. Cardiology was consulted. Cardiology felt no further workup was required. Patient still having chest pain - gastric reflux? Cardiac? Repeat EKG showing no change and Troponin normal now. Continue Lipitor, aspirin and Coreg. Plan to hold Plavix through 02/23/2021. Resume Plavix on 02/24/2021. (4) Silent aspiration: Code(s): T17.900A - Unspecified foreign body in respiratory tract, part unspecified causing asphyxiation, initial encounter Status: Acute Assessment and Plan: Patient failed modified barium swallow. He has silent aspiration. Clinically appears that he has had a G-tube in the past. GI was consulted and patient had PEG tube placed 02/19 and he tolerated the procedure well. Blackish liquid but possible bili and not old blood. Guaiac positive but he had bleeding around the site so not helpful(felt would be helpful if negative). Reglan started and tolerating TF at low rate. Advance to 20mL/hr and continue to advance to goal as toelrated. Discharge w
--- NOTE | 2021-02-22 14:33 | PM.PNNEP ---
Progress Note: A&P Assessment and Plan (1) End stage renal disease: Code(s): N18.6 - End stage renal disease Status: Chronic Assessment and Plan: HD later. Volume status looks okay. potassium and bicarbonate okay. (2) Chest pain: Code(s): R07.9 - Chest pain, unspecified Status: Acute Assessment and Plan: Resolved issues with bradycardia -- Cardiology following (3) Anemia: Code(s): D64.9 - Anemia, unspecified Status: Chronic Assessment and Plan: presumably related to ESRD Epogen with HD (4) Hypertension: Code(s): I10 - Essential (primary) hypertension Status: Chronic Assessment and Plan: blood pressure under pretty good control with systolic around 100-130. He is on Coreg, and Hytrin . Amlodipine was stopped because of low blood pressure yesterday. volume removal may have helped. (5) Diabetes mellitus: Code(s): E11.9 - Type 2 diabetes mellitus without complications Status: Chronic Assessment and Plan: follow accuchecks on SSI Subjective Date/time seen: 02/22/21 14:33 Interval history: 60yo male with hx of ESRD, DM and CVAs here for chest pain. Patient is feeling okay due for HD later. Exam Narrative: General: AA male laying in bed in NAD Heart: normal S1 and S2; no rub Lungs: clear to auscultation Abdomen: soft, nontender, nondistended, positive bowel sounds Extremities: no edema Or cyanosis Skin: no rash or subcu nodules Objective Data Vital Signs Vital Signs: Vital Signs - 24 hr 02/21/21 16:00 02/21/21 20:00 02/21/21 21:03 Temperature 37.4 C 36.6 C Pulse Rate 81 88 88 Respiratory Rate 18 16 Blood Pressure 112/70 106/63 Pulse Oximetry 92 100 02/22/21 00:00 02/22/21 01:15 02/22/21 04:00 Temperature 36.1 C L 36.3 C L Pulse Rate 88 76 78 Respiratory Rate 16 16 Blood Pressure 105/69 105/61 Pulse Oximetry 94 93 95 02/22/21 09:30 02/22/21 09:37 02/22/21 14:29 Temperature 36.6 C Pulse Rate 72 76 Respiratory Rate 14 Blood Pressure 122/68 120/65 Pulse Oximetry 95 Intake/Output Intake/Output: Intake & Output 02/19/21 02/20/21 02/21/21 02/22/21 23:59 23:59 23:59 23:59 Intake Total 200 250 90 Output Total 200 1200 0 Balance 0 -950 90 Meds/Results Medications: Active Medications Generic Name Dose Route Start Last Admin Trade Name Freq PRN Reason Stop Dose Admin Acetaminophen 650 mg 02/20/21 08:22 Acetaminophen Elixir 325 Mg/10.15 Ml Udc FEED TUBE Q4H PRN Mild Pain (1-3) Al Hydrox/Mg Hydrox/Simethicone 30 ml 02/20/21 08:08 Mag Hydrox/Al Hydrox/Simeth 30 Ml Udc FEED TUBE Q6H PRN Indigestion Aspirin 81 mg 02/21/21 08:00 02/21/21 10:49 Aspirin 81 Mg Chewable Tablet FEED TUBE Not Given DAILY@0800 SAM Atorvastatin Calcium 10 mg 02/20/21 21:00 02/21/21 21:02 Atorvastatin 10 Mg Tablet FEED TUBE 10 mg HS SAM Administration Carvedilol 25 mg 02/20/21 09:00 02/22/21 09:30 Carvedilol 25 Mg Tablet FEED TUBE 25 mg Q12HR SAM Administration Dextrose 12.5 gm 02/12/21 21:03 02/19/21 12:27 Dextrose 50% 25 Gm/50 Ml Syringe IV PUSH 12.5 gm PRN PRN Administration Hypoglycemia Protocol Epoetin Tarik-epbx 10,000 units 02/22/21 18:00 Epoetin Tarik-Epbx 10,000 Units/Ml Vial IV PUSH MoWeFr@1800 SAM Gabapentin 100 mg 02/20/21 09:00 02/22/21 12:29 Gabapentin 100 Mg Capsule FEED TUBE 100 mg TID SAM Administration Glucagon 1 mg 02/12/21 21:03 Glucagon For Inj 1 Mg Vial IM PRN PRN Hypoglycemia Protocol Glucose 15 gm 02/12/21 21:03 Glucose Oral Gel 15 Gm Of Glucse In 37.5 Gm Tube PO PRN PRN Hypoglycemia Protocol Hydralazine HCl 10 mg 02/16/21 08:24 02/18/21 14:13 Hydralazine Hcl 20 Mg/Ml Vial IV PUSH 10 mg Q4H PRN Administration Blood Pressure - High Dextrose 1,000 mls @ 1
[2021-02-22 14:55] LABS: Alanine Aminotransferase 38 U/L (4-50); Albumin Level 3.8 g/dL (3.5-5.1); Alkaline Phosphatase 803 U/L (38-126); Anion Gap 11 mmol/L (8-16); Aspartate Amino Transferase 76 U/L (17-59); Bilirubin,Total 5.3 mg/dL (0.2-1.3); Blood Urea Nitrogen 41 mg/dL (9-20); Calcium 9.4 mg/dL (8.4-10.2); Carbon Dioxide 34 mmol/L (22-30); Chloride 98 mmol/L (98-107); Estimated CRCL calculation 16 ml/min; Estimated Glomerular Filt Rate 17; Glucose 136 mg/dL (65-110); Potassium 3.6 mmol/L (3.4-5.0); Sodium 143 mmol/L (137-145)
--- NOTE | 2021-02-22 16:30 | PC.NURSE ---
To dialysis via bed
[2021-02-22] MEDS: EPOETIN ALFA-EPBX 10,000 UNITS/ML VIAL 10000 UNITS IV PUSH (17:45)
[2021-02-22 18:07] LABS: Glucose Point of Care 110 mg/dl (65-105)
--- NOTE | 2021-02-22 20:45 | PC.NURSE ---
Pt back to room from dialysis.
[2021-02-22] MEDS: ATORVASTATIN 10 MG TABLET FEED TUBE (21:03)
[2021-02-22] MEDS: TERAZOSIN HCL 1 MG CAPSULE 2 MG FEED TUBE (21:06)
[2021-02-22] MEDS: MIRTAZAPINE 15 MG TABLET FEED TUBE (21:07)
[2021-02-23] MEDS: METOCLOPRAMIDE HCL INJ 10 MG/2 ML VIAL 5 MG IV PUSH ×4 (00:04→17:32)
[2021-02-23 00:52] LABS: Glucose Point of Care 135 mg/dl (65-105)
[2021-02-23 06:00] VITALS: BP 91/51; PULSE 80; RESP 18; TEMP 36.9; O2SAT 100
[2021-02-23] MEDS: LEVOTHYROXINE SODIUM 112 MCG, LEVOTHYROXINE SODIUM 25 MCG 137 MCG FEED TUBE (06:40)
[2021-02-23 06:45] LABS: Glucose Point of Care 114 mg/dl (65-105)
[2021-02-23 06:56] LABS: Alanine Aminotransferase 35 U/L (4-50); Albumin Level 3.5 g/dL (3.5-5.1); Alkaline Phosphatase 879 U/L (38-126); Anion Gap 10 mmol/L (8-16); Aspartate Amino Transferase 82 U/L (17-59); Bilirubin,Total 6.4 mg/dL (0.2-1.3); Blood Urea Nitrogen 19 mg/dL (9-20); Calcium 8.9 mg/dL (8.4-10.2); Carbon Dioxide 31 mmol/L (22-30); Chloride 101 mmol/L (98-107); Estimated CRCL calculation 26 ml/min; Estimated Glomerular Filt Rate 29; Glucose 132 mg/dL (65-110); Phosphorus 2.4 mg/dL (2.5-4.5); Potassium 3.1 mmol/L (3.4-5.0); Sodium 142 mmol/L (137-145)
--- NOTE | 2021-02-23 07:04 | PM.IMPN ---
Progress Note: A&P Additional Plan START OF DOCTOR PORFIRIO?S PROGRESS NOTE Subjective: The patient is minimally verbal. He endorses no complaints post 2 months time. He denies fever, rigors, nausea, vomiting, cough, wheeze, abdominal pain, chest pain, dyspnea. I have attempted to explain to the patient his current medical condition plan of care however he is very soft-spoken Objective: General: -Alert -No acute distress -No dyspnea -No tachypnea Heart: -Regular rate -Regular rhythm -No murmurs -No gallops -No rubs Lungs: -No wheeze -left-sided rhonchi present -No rales Abdomen: -Normal bowel sounds in all four quadrants -No rebound -No guarding -No tenderness Extremities: -2/4 pulse in all four extremities -No clubbing -No cyanosis -No edema Additional Details / Additional Findings / Exceptions / Miscellaneous: Pertinent Laboratory Results / Pertinent Radiology Results / Pertinent Diagnostic Results / Pertinent Vital Signs: Blood pressure 91/56 Assessment / Plan: All medication below is being administered via PEG tube breath on p.o. 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 At this time it is my understanding that gastroenterology feels the patient is too high risk for ERCP. I will speak with the patient's family regarding their expectations and discharge planning Cholelithiasis Hepatic steatosis Cirrhosis Aspiration, status post EGD with gastrostomy tube placement February 19, 2021 with Gastroenterology End-stage renal disease for which the patient is on hemodialysis. I appreciate Nephrology evaluate the patient. Will monitor serum electrolytes periodically. Renvela 800 mg p.o. t.i.d. History of CVA. Aspirin 81 mg p.o. daily plus Lipitor 10 mg p.o. q.h.s. BPH. Tracing 2 mg p.o. q.h.s. Depression Diabetes. Will check fingerstick glucose q.a.c. and HS and provide insulin sliding scale GERD Gout Hyperlipidemia. Lipitor 10 mg p.o. q.h.s. Hypertension. Coreg 25 mg p.o. b.i.d. plus Cozaar 25 mg p.o. daily plus traces in 2 mg p.o. q.h.s. Hypothyroidism. Synthroid 137 mg p.o. daily Neuropathy. Gabapentin 100 mg p.o. t.i.d. Elevated troponin. I appreciate Cardiology evaluate the patient. Echocardiogram overall unremarkable. Aspirin 81 mg p.o. daily plus Lipitor 10 mg p.o. q.h.s. plus Coreg 25 mg p.o. b.i.d. Anemia of chronic disease. Will monitor hemoglobin level intermittently. Erythropoietin 33547 units IV Q Thursday, Thursday, and Thursday Nephrolithiasis, asymptomatic Pain. Lidocaine 5% patch: 2 patches applied to affected area daily Depression. Remeron 15 mg p.o. p.o. q.h.s. plus Paxil 20 mg p.o. daily DVT prophylaxis. Bilateral CT Disposition: Patient appears medically stable for discharge. I will discuss with case management/social work and attempt to contact the patient's family regarding plan of care END OF DOCTOR PORFIRIO?S PROGRESS NOTE Subjective Date/time seen: 02/23/21 07:04 Objective Data Vital Signs Vital Signs: Vital Signs - 24 hr 02/22/21 09:30 02/22/21 09:37 02/22/21 14:29 Temperature 97.8 F Pulse Rate 72 76 Respiratory Rate 14 Blood Pressure 122/68 120/65 Pulse Oximetry 95 02/22/21 16:30 02/22/21 16:45 02/22/21 17:15 Temperature 98.2 F Pulse Rate 73 72 87 Respiratory Rate 20 Blood Pressure 100/62 103/61 78/54 L Pulse Oximetry 02/22/21 17:30 02/22/21 18:00 02/22/21 18:30 Temperature Pulse Rate 83 79 76 Respiratory Rate Blood Pressure 105/60 105/65 87/53 L Pulse Oximetry 02/22/21 19:00 02/22/21 19:45 02/22/21 20:15 Temperature Pulse Rate 80 87 78 Respiratory Rate Blood Pressure 98/57 L 96/55 L 102/60 Pulse Oximetry 02/22/21 20:34 02/22/21 21:02 02/22/21 21:10 Temperature 98.0 F Pulse Rate 78 80 80 Respiratory Rate 18 18 Blood Pressure 107/55 L Pulse Oximetry 95 02/22/21 22:00 02/23/21
--- NOTE | 2021-02-23 08:31 | PM.PNCARD ---
Progress Note: A&P Assessment and Plan (1) Elevated troponin: Code(s): R77.8 - Other specified abnormalities of plasma proteins Status: Acute Assessment and Plan: Mild and flat. Probably related to ESRD. No symptoms to suggest ACS. EKG is nonspecific. Echo showed no significant wall motion abnormalities with EF 55-60%. Recheck Troponin is negative. His chest pain could be musculoskeletal as it is somewhat reproducible by palpation or GI related with pancreatitis/dilated bile ducts? Going for MRCP today. No further cardiac workup is needed. (2) Hypertension: Code(s): I10 - Essential (primary) hypertension Status: Chronic Assessment and Plan: Low normal with SBP 85-90's. Got PEG tube placed on 02/19/21 and receiving BP medication. Stopped Diltiazem due to mild bradycardia. On Coreg 25 mg BID, on Losartan 25 mg daily via PEG. Stop Coreg due to low BP. Start Metoprolol Tartate 25 mg PO BID via PEG.. (3) Hyperlipidemia: Code(s): E78.5 - Hyperlipidemia, unspecified Status: Chronic Assessment and Plan: On Atorvastatin. (4) End stage renal disease on dialysis: Code(s): N18.6 - End stage renal disease; Z99.2 - Dependence on renal dialysis Status: Chronic Subjective Date/time seen: 02/23/21 08:31 Denies chest pain or sob. Exam Const: General: cooperative, healthy appearing and comfortable Resp: Auscultation: clear to auscultation bilaterally, no crackles, no rales, no rhonchi and no wheezes Cardio: Jugular venous distension: no JVD Rate: regular rate Rhythm: regular rhythm Heart sounds: no murmurs GI: GI Palp: Yes abdominal tenderness and Yes Soft to palpation Neuro: General: oriented to person, oriented to place and oriented to time Extrem: Right lower extremity: no edema Left lower extremity: no edema Objective Data Vital Signs Vital Signs: Vital Signs - 24 hr 02/22/21 09:30 02/22/21 09:37 02/22/21 14:29 Temperature 97.8 F Pulse Rate 72 76 Respiratory Rate 14 Blood Pressure 122/68 120/65 Pulse Oximetry 95 02/22/21 16:30 02/22/21 16:45 02/22/21 17:15 Temperature 98.2 F Pulse Rate 73 72 87 Respiratory Rate 20 Blood Pressure 100/62 103/61 78/54 L Pulse Oximetry 02/22/21 17:30 02/22/21 18:00 02/22/21 18:30 Temperature Pulse Rate 83 79 76 Respiratory Rate Blood Pressure 105/60 105/65 87/53 L Pulse Oximetry 02/22/21 19:00 02/22/21 19:45 02/22/21 20:15 Temperature Pulse Rate 80 87 78 Respiratory Rate Blood Pressure 98/57 L 96/55 L 102/60 Pulse Oximetry 02/22/21 20:34 02/22/21 21:02 02/22/21 21:10 Temperature 98.0 F Pulse Rate 78 80 80 Respiratory Rate 18 18 Blood Pressure 107/55 L Pulse Oximetry 95 02/22/21 22:00 02/23/21 06:00 Temperature 98.3 F 98.4 F Pulse Rate 82 80 Respiratory Rate 18 18 Blood Pressure 99/54 L 91/51 L Pulse Oximetry 98 100 Intake/Output Intake/Output: Intake & Output 02/20/21 02/21/21 02/22/21 02/23/21 23:59 23:59 23:59 23:59 Intake Total 250 90 549 Output Total 1200 0 121 Balance -950 90 428 Meds/Results Medications: Active Medications Generic Name Dose Route Start Last Admin Trade Name Freq PRN Reason Stop Dose Admin Acetaminophen 650 mg 02/20/21 08:22 Acetaminophen Elixir 325 Mg/10.15 Ml Udc FEED TUBE Q4H PRN Mild Pain (1-3) Al Hydrox/Mg Hydrox/Simethicone 30 ml 02/20/21 08:08 Mag Hydrox/Al Hydrox/Simeth 30 Ml Udc FEED TUBE Q6H PRN Indigestion Aspirin 81 mg 02/21/21 08:00 02/21/21 10:49 Aspirin 81 Mg Chewable Tablet FEED TUBE Not Given DAILY@0800 SAM Atorvastatin Calcium 10 mg 02/20/21 21:00 02/22/21 21:03 Atorvastatin 10 Mg Tablet FEED TUBE 10 mg HS SAM Administration Dextrose 12.5 gm 02/12/21 21:03 02/19/21 12:27 Dextrose 50% 25 Gm/50 Ml Syringe IV PUSH 12.5 gm PRN PRN Administration Hypoglycemia Protocol Epoetin Tarik-epbx
[2021-02-23] MEDS: ASPIRIN 81 MG CHEWABLE TABLET FEED TUBE (08:33)
[2021-02-23] MEDS: PARoxetine 20 MG TABLET FEED TUBE (08:33)
[2021-02-23] MEDS: LIDOCAINE 5% PATCH 2 PATCH TRANSDERM (08:33)
[2021-02-23] MEDS: ACIDOPHILUS/BULGARICUS CHEWABLE TABLET 1 TABLET FEED TUBE (08:33)
[2021-02-23] MEDS: SEVELAMER CARBONATE 800 MG TABLET FEED TUBE ×2 (08:33→17:34)
[2021-02-23] MEDS: GABAPENTIN 100 MG CAPSULE FEED TUBE ×2 (08:33→17:34)
[2021-02-23] MEDS: ACETAMINOPHEN ELIXIR 325 MG/10.15 ML UDC 650 MG FEED TUBE (08:39)
--- NOTE | 2021-02-23 11:28 | PM.PNNEP ---
Progress Note: A&P Assessment and Plan (1) End stage renal disease: Code(s): N18.6 - End stage renal disease Status: Chronic Assessment and Plan: HD later. Volume status looks okay. potassium and bicarbonate okay. GI issues noted. (2) Chest pain: Code(s): R07.9 - Chest pain, unspecified Status: Acute Assessment and Plan: Resolved issues with bradycardia -- Cardiology following (3) Anemia: Code(s): D64.9 - Anemia, unspecified Status: Chronic Assessment and Plan: presumably related to ESRD Epogen with HD (4) Hypertension: Code(s): I10 - Essential (primary) hypertension Status: Chronic Assessment and Plan: blood pressure under pretty good control with systolic around 100-130. He is on Coreg, and Hytrin. The dose of Hytrin is very low. Will stop this since his blood pressure is somewhat soft. (5) Diabetes mellitus: Code(s): E11.9 - Type 2 diabetes mellitus without complications Status: Chronic Assessment and Plan: follow accuchecks on SSI Subjective Date/time seen: 02/23/21 11:28 Interval history: 60yo male with hx of ESRD, DM and CVAs here for chest pain. Patient is about the same. He had dialysis yesterday and it went well. Exam Narrative: General: AA male laying in bed in NAD Heart: normal S1 and S2; no rub or gallop Lungs: clear Abdomen: soft, nontender, nondistended, positive bowel sounds Extremities: no edema Or cyanosis Skin: no rash or subcu nodules Objective Data Vital Signs Vital Signs: Vital Signs - 24 hr 02/22/21 14:29 02/22/21 16:30 02/22/21 16:45 Temperature 36.6 C 36.8 C Pulse Rate 76 73 72 Respiratory Rate 14 20 Blood Pressure 120/65 100/62 103/61 Pulse Oximetry 95 02/22/21 17:15 02/22/21 17:30 02/22/21 18:00 Temperature Pulse Rate 87 83 79 Respiratory Rate Blood Pressure 78/54 L 105/60 105/65 Pulse Oximetry 02/22/21 18:30 02/22/21 19:00 02/22/21 19:45 Temperature Pulse Rate 76 80 87 Respiratory Rate Blood Pressure 87/53 L 98/57 L 96/55 L Pulse Oximetry 02/22/21 20:15 02/22/21 20:34 02/22/21 21:02 Temperature 36.7 C Pulse Rate 78 78 80 Respiratory Rate 18 Blood Pressure 102/60 107/55 L Pulse Oximetry 02/22/21 21:10 02/22/21 22:00 02/23/21 06:00 Temperature 36.8 C 36.9 C Pulse Rate 80 82 80 Respiratory Rate 18 18 18 Blood Pressure 99/54 L 91/51 L Pulse Oximetry 95 98 100 Intake/Output Intake/Output: Intake & Output 02/20/21 02/21/21 02/22/21 02/23/21 23:59 23:59 23:59 23:59 Intake Total 250 90 549 Output Total 1200 0 121 Balance -950 90 428 Meds/Results Medications: Active Medications Generic Name Dose Route Start Last Admin Trade Name Freq PRN Reason Stop Dose Admin Acetaminophen 650 mg 02/20/21 08:22 02/23/21 08:39 Acetaminophen Elixir 325 Mg/10.15 Ml Udc FEED TUBE 650 mg Q4H PRN Administration Mild Pain (1-3) Al Hydrox/Mg Hydrox/Simethicone 30 ml 02/20/21 08:08 Mag Hydrox/Al Hydrox/Simeth 30 Ml Udc FEED TUBE Q6H PRN Indigestion Aspirin 81 mg 02/21/21 08:00 02/23/21 08:33 Aspirin 81 Mg Chewable Tablet FEED TUBE 81 mg DAILY@0800 SAM Administration Atorvastatin Calcium 10 mg 02/20/21 21:00 02/22/21 21:03 Atorvastatin 10 Mg Tablet FEED TUBE 10 mg HS SAM Administration Dextrose 12.5 gm 02/12/21 21:03 02/19/21 12:27 Dextrose 50% 25 Gm/50 Ml Syringe IV PUSH 12.5 gm PRN PRN Administration Hypoglycemia Protocol Epoetin Tarik-epbx 10,000 units 02/22/21 18:00 02/22/21 17:45 Epoetin Tairk-Epbx 10,000 Units/Ml Vial IV PUSH 10,000 units MoWeFr@1800 SAM Administration Gabapentin 100 mg 02/20/21 09:00 02/23/21 08:33 Gabapentin 100 Mg Capsule FEED TUBE 100 mg TID SAM Administration Glucagon 1 mg 02/12/21 21:03 Glucagon For Inj 1 Mg Vial IM PRN PRN Hypoglyce
[2021-02-23 13:27] LABS: Glucose Point of Care 116 mg/dl (65-105)
[2021-02-23 14:00] VITALS: BP 95/59; PULSE 95; RESP 16; TEMP 36.1; O2SAT 98
[2021-02-23 18:07] LABS: Glucose Point of Care 138 mg/dl (65-105)
[2021-02-23 20:00] VITALS: PULSE 82; RESP 18; O2SAT 98
[2021-02-23 22:00] VITALS: BP 125/58; PULSE 89; RESP 18; TEMP 36.2; O2SAT 98
[2021-02-23] MEDS: MIRTAZAPINE 15 MG TABLET FEED TUBE (22:06)
[2021-02-23] MEDS: ATORVASTATIN 10 MG TABLET FEED TUBE (22:07)
[2021-02-23 22:51] VITALS: PULSE 82
[2021-02-23] MEDS: METOPROLOL TARTRATE 25 MG TABLET PO (22:51)
[2021-02-24 00:40] LABS: Glucose Point of Care 142 mg/dl (65-105)
[2021-02-24] MEDS: METOCLOPRAMIDE HCL INJ 10 MG/2 ML VIAL 5 MG IV PUSH ×3 (00:58→14:45)
[2021-02-24 06:00] VITALS: BP 81/52; PULSE 79; RESP 16; TEMP 35.9; O2SAT 100
[2021-02-24] MEDS: SODIUM CHLORIDE 0.9% IV 1,000 ML 500 ML IV CONT (06:09)
[2021-02-24] MEDS: LEVOTHYROXINE SODIUM 112 MCG, LEVOTHYROXINE SODIUM 25 MCG 137 MCG FEED TUBE (06:37)
[2021-02-24 06:39] LABS: Albumin Level 3.4 g/dL (3.5-5.1); Anion Gap 8 mmol/L (8-16); Blood Urea Nitrogen 26 mg/dL (9-20); Calcium 8.8 mg/dL (8.4-10.2); Carbon Dioxide 31 mmol/L (22-30); Chloride 102 mmol/L (98-107); Estimated CRCL calculation 19 ml/min; Estimated Glomerular Filt Rate 20; Glucose 135 mg/dL (65-110); Phosphorus 2.7 mg/dL (2.5-4.5); Potassium 3.2 mmol/L (3.4-5.0); Sodium 141 mmol/L (137-145)
[2021-02-24 06:41] LABS: Alanine Aminotransferase 31 U/L (4-50); Albumin Level 3.4 g/dL (3.5-5.1); Alkaline Phosphatase 755 U/L (38-126); Anion Gap 8 mmol/L (8-16); Aspartate Amino Transferase 63 U/L (17-59); Bilirubin,Total 4.1 mg/dL (0.2-1.3); Blood Urea Nitrogen 26 mg/dL (9-20); Calcium 8.9 mg/dL (8.4-10.2); Carbon Dioxide 30 mmol/L (22-30); Chloride 102 mmol/L (98-107); Estimated CRCL calculation 19 ml/min; Estimated Glomerular Filt Rate 20; Glucose 134 mg/dL (65-110); Lipase 855 U/L (23-300); Phosphorus 2.7 mg/dL (2.5-4.5); Potassium 3.2 mmol/L (3.4-5.0); Sodium 140 mmol/L (137-145)
--- NOTE | 2021-02-24 06:52 | PM.IMPN ---
Progress Note: A&P Additional Plan START OF DOCTOR PORFIRIO?S PROGRESS NOTE Subjective: Patient is seen sleeping. He is minimally verbal. I briefly awaken him and he had endorses no complaints that I have post 2 tillman Objective: General: -Alert -No acute distress -No dyspnea -No tachypnea Heart: -Regular rate -Regular rhythm -No murmurs -No gallops -No rubs Lungs: -No wheeze -left-sided rhonchi present -No rales Abdomen: -Normal bowel sounds in all four quadrants -No rebound -No guarding -No tenderness Extremities: -2/4 pulse in all four extremities -No clubbing -No cyanosis -No edema Additional Details / Additional Findings / Exceptions / Miscellaneous: Pertinent Laboratory Results / Pertinent Radiology Results / Pertinent Diagnostic Results / Pertinent Vital Signs: Blood pressure 81/52, potassium 3.2, 2 total protein is 4.1, AST 63, alkaline phosphatase 155, lipase high 155 Assessment / Plan: All medication below is being administered via PEG tube breath on p.o. 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 At this time it is my understanding that gastroenterology feels the patient is too high risk for ERCP. I will speak with the patient's family regarding their expectations and discharge planning Cholelithiasis Hepatic steatosis Cirrhosis Aspiration, status post EGD with gastrostomy tube placement February 19, 2021 with Gastroenterology End-stage renal disease for which the patient is on hemodialysis. I appreciate Nephrology evaluate the patient. Will monitor serum electrolytes periodically. Renvela 800 mg p.o. t.i.d. Hypokalemia. Will monitor potassium levels intermittently and supplemented as necessary History of CVA. Aspirin 81 mg p.o. daily plus Lipitor 10 mg p.o. q.h.s. BPH. Depression Diabetes. Will check fingerstick glucose q.a.c. and HS and provide insulin sliding scale GERD Gout Hyperlipidemia. Lipitor 10 mg p.o. q.h.s. Hypertension. Hypothyroidism. Synthroid 137 mg p.o. daily Neuropathy. Gabapentin 100 mg p.o. t.i.d. Elevated troponin. I appreciate Cardiology evaluate the patient. Echocardiogram overall unremarkable. Aspirin 81 mg p.o. daily plus Lipitor 10 mg p.o. q.h.s. Anemia of chronic disease. Will monitor hemoglobin level intermittently. Erythropoietin 83308 units IV Q Thursday, Thursday, and Thursday Nephrolithiasis, asymptomatic Pain. Lidocaine 5% patch: 2 patches applied to affected area daily Depression. Remeron 15 mg p.o. p.o. q.h.s. plus Paxil 20 mg p.o. daily DVT prophylaxis. Bilateral CT Disposition: Patient appears medically stable for discharge. I will discuss with case management/social work and attempt to contact the patient's family regarding plan of care and enrollment in hospice END OF DOCTOR PORFIRIO?S PROGRESS NOTE Subjective Date/time seen: 02/24/21 06:52 Objective Data Vital Signs Vital Signs: Vital Signs - 24 hr 02/23/21 14:00 02/23/21 20:00 02/23/21 22:00 Temperature 97.0 F L 97.2 F L Pulse Rate 95 82 89 Respiratory Rate 16 18 18 Blood Pressure 95/59 L 125/58 L Pulse Oximetry 98 98 98 02/23/21 22:51 02/24/21 06:00 Temperature 96.6 F L Pulse Rate 82 79 Respiratory Rate 16 Blood Pressure 81/52 L Pulse Oximetry 100 Intake/Output Intake/Output: Intake & Output 02/21/21 02/22/21 02/23/21 02/24/21 23:59 23:59 23:59 23:59 Intake Total 90 549 0 Output Total 0 121 Balance 90 428 0 Meds/Results Medications: Active Medications Generic Name Dose Route Start Last Admin Trade Name Freq PRN Reason Stop Dose Admin Acetaminophen 650 mg 02/20/21 08:22 02/23/21 08:39 Acetaminophen Elixir 325 Mg/10.15 Ml Udc FEED TUBE 650 mg Q4H PRN Administration Mild Pain (1-3) Al Hydrox/Mg Hydrox/Simethicone 30 ml 02/20/21 08:08 Mag Hydrox/Al Hydrox/Simeth 30 Ml Udc FEED TUBE Q6H PRN Indigestion Aspiri
[2021-02-24 06:58] LABS: INR 1.2; Prothrombin Time 14.8 Seconds (11.1-14.7)
[2021-02-24 07:55] LABS: Glucose Point of Care 125 mg/dl (65-105)
[2021-02-24 08:10] VITALS: BP 107/65; PULSE 75; RESP 12; TEMP 36.2; O2SAT 99
[2021-02-24] MEDS: ASPIRIN 81 MG CHEWABLE TABLET FEED TUBE (09:13)
[2021-02-24] MEDS: SEVELAMER CARBONATE 800 MG TABLET FEED TUBE ×2 (09:13→14:45)
[2021-02-24] MEDS: LIDOCAINE 5% PATCH 2 PATCH TRANSDERM (09:13)
[2021-02-24] MEDS: GABAPENTIN 100 MG CAPSULE FEED TUBE ×2 (09:13→14:45)
[2021-02-24] MEDS: ACIDOPHILUS/BULGARICUS CHEWABLE TABLET 1 TABLET FEED TUBE (09:13)
[2021-02-24] MEDS: PARoxetine 20 MG TABLET FEED TUBE (09:14)
--- NOTE | 2021-02-24 09:26 | PM.PNCARD ---
Progress Note: A&P Assessment and Plan (1) Elevated troponin: Code(s): R77.8 - Other specified abnormalities of plasma proteins Status: Acute Assessment and Plan: Mild and flat. Probably related to ESRD. No symptoms to suggest ACS. EKG is nonspecific. Echo showed no significant wall motion abnormalities with EF 55-60%. Recheck Troponin is negative. His chest pain could be musculoskeletal as it is somewhat reproducible by palpation or GI related with pancreatitis/dilated bile ducts? Going for MRCP today. No further cardiac workup is needed. (2) Hypertension: Code(s): I10 - Essential (primary) hypertension Status: Chronic Assessment and Plan: Low with SBP 85-90's. Is this due to volume depletion? Got PEG tube placed on 02/19/21 and receiving BP medication. Stopped Diltiazem due to mild bradycardia. Stopped Metoprolol and Losartan due to low BP. Monitor BP. (3) Hyperlipidemia: Code(s): E78.5 - Hyperlipidemia, unspecified Status: Chronic Assessment and Plan: On Atorvastatin. (4) End stage renal disease on dialysis: Code(s): N18.6 - End stage renal disease; Z99.2 - Dependence on renal dialysis Status: Chronic Subjective Date/time seen: 02/24/21 09:26 Denies chest pain or sob or dizziness. Exam Const: General: cooperative, healthy appearing and comfortable Resp: Auscultation: clear to auscultation bilaterally, no crackles, no rales, no rhonchi and no wheezes Cardio: Jugular venous distension: no JVD Rate: regular rate Rhythm: regular rhythm Heart sounds: no murmurs GI: GI Palp: Yes abdominal tenderness and Yes Soft to palpation Neuro: General: oriented to person, oriented to place and oriented to time Extrem: Right lower extremity: no edema Left lower extremity: no edema Objective Data Vital Signs Vital Signs: Vital Signs - 24 hr 02/23/21 14:00 02/23/21 20:00 02/23/21 22:00 Temperature 97.0 F L 97.2 F L Pulse Rate 95 82 89 Respiratory Rate 16 18 18 Blood Pressure 95/59 L 125/58 L Pulse Oximetry 98 98 98 02/23/21 22:51 02/24/21 06:00 02/24/21 08:10 Temperature 96.6 F L 97.1 F L Pulse Rate 82 79 75 Respiratory Rate 16 12 Blood Pressure 81/52 L 107/65 Pulse Oximetry 100 99 Intake/Output Intake/Output: Intake & Output 02/21/21 02/22/21 02/23/21 02/24/21 23:59 23:59 23:59 23:59 Intake Total 90 549 0 Output Total 0 121 Balance 90 428 0 Meds/Results Medications: Active Medications Generic Name Dose Route Start Last Admin Trade Name Freq PRN Reason Stop Dose Admin Acetaminophen 650 mg 02/20/21 08:22 02/23/21 08:39 Acetaminophen Elixir 325 Mg/10.15 Ml Udc FEED TUBE 650 mg Q4H PRN Administration Mild Pain (1-3) Al Hydrox/Mg Hydrox/Simethicone 30 ml 02/20/21 08:08 Mag Hydrox/Al Hydrox/Simeth 30 Ml Udc FEED TUBE Q6H PRN Indigestion Aspirin 81 mg 02/21/21 08:00 02/24/21 09:13 Aspirin 81 Mg Chewable Tablet FEED TUBE 81 mg DAILY@0800 SAM Administration Atorvastatin Calcium 10 mg 02/20/21 21:00 02/23/21 22:07 Atorvastatin 10 Mg Tablet FEED TUBE 10 mg HS SAM Administration Dextrose 12.5 gm 02/12/21 21:03 02/19/21 12:27 Dextrose 50% 25 Gm/50 Ml Syringe IV PUSH 12.5 gm PRN PRN Administration Hypoglycemia Protocol Epoetin Tarik-epbx 10,000 units 02/22/21 18:00 02/22/21 17:45 Epoetin Tarik-Epbx 10,000 Units/Ml Vial IV PUSH 10,000 units MoWeFr@1800 SAM Administration Gabapentin 100 mg 02/20/21 09:00 02/24/21 09:13 Gabapentin 100 Mg Capsule FEED TUBE 100 mg TID SAM Administration Glucagon 1 mg 02/12/21 21:03 Glucagon For Inj 1 Mg Vial IM PRN PRN Hypoglycemia Protocol Glucose 15 gm 02/12/21 21:03 Glucose Oral Gel 15 Gm Of Glucse In 37.5 Gm Tube PO PRN PRN Hypoglycemia Protocol Hydralazine HCl 10 mg 02/16/21 08:24 02/18/21 14:13 Hydralazine Hcl 20 Mg/Ml Vial IV PUSH 10 m
[2021-02-24] MEDS: ONDANSETRON INJ 4 MG/2 ML VIAL IV PUSH (09:31)
[2021-02-24 12:35] LABS: Glucose Point of Care 178 mg/dl (65-105)
--- NOTE | 2021-02-24 12:58 | PM.PNNEP ---
Progress Note: A&P Assessment and Plan (1) End stage renal disease: Code(s): N18.6 - End stage renal disease Status: Chronic Assessment and Plan: HD tomorrow Volume status looks okay. potassium and bicarbonate okay. GI issues noted. (2) Chest pain: Code(s): R07.9 - Chest pain, unspecified Status: Acute Assessment and Plan: Resolved issues with bradycardia -- Cardiology following (3) Anemia: Code(s): D64.9 - Anemia, unspecified Status: Chronic Assessment and Plan: presumably related to ESRD Epogen with HD (4) Hypertension: Code(s): I10 - Essential (primary) hypertension Status: Chronic Assessment and Plan: blood pressure under pretty good control with systolic around 100-130. He is on Coreg. (5) Diabetes mellitus: Code(s): E11.9 - Type 2 diabetes mellitus without complications Status: Chronic Assessment and Plan: follow accuchecks on SSI Subjective Date/time seen: 02/24/21 12:58 Interval history: 60yo male with hx of ESRD, DM and CVAs here for chest pain. Patient is feeling okay Exam Narrative: General: AA male laying in bed in NAD Heart: normal S1 and S2; no rub or gallop Lungs: clear Abdomen: soft, nontender, nondistended, positive bowel sounds Extremities: no edema Or cyanosis Skin: no rash or subcu nodules Objective Data Vital Signs Vital Signs: Vital Signs - 24 hr 02/23/21 14:00 02/23/21 20:00 02/23/21 22:00 Temperature 36.1 C L 36.2 C L Pulse Rate 95 82 89 Respiratory Rate 16 18 18 Blood Pressure 95/59 L 125/58 L Pulse Oximetry 98 98 98 02/23/21 22:51 02/24/21 06:00 02/24/21 08:10 Temperature 35.9 C L 36.2 C L Pulse Rate 82 79 75 Respiratory Rate 16 12 Blood Pressure 81/52 L 107/65 Pulse Oximetry 100 99 Intake/Output Intake/Output: Intake & Output 02/21/21 02/22/21 02/23/21 02/24/21 23:59 23:59 23:59 23:59 Intake Total 90 549 0 Output Total 0 121 Balance 90 428 0 Meds/Results Medications: Active Medications Generic Name Dose Route Start Last Admin Trade Name Freq PRN Reason Stop Dose Admin Acetaminophen 650 mg 02/20/21 08:22 02/23/21 08:39 Acetaminophen Elixir 325 Mg/10.15 Ml Udc FEED TUBE 650 mg Q4H PRN Administration Mild Pain (1-3) Al Hydrox/Mg Hydrox/Simethicone 30 ml 02/20/21 08:08 Mag Hydrox/Al Hydrox/Simeth 30 Ml Udc FEED TUBE Q6H PRN Indigestion Aspirin 81 mg 02/21/21 08:00 02/24/21 09:13 Aspirin 81 Mg Chewable Tablet FEED TUBE 81 mg DAILY@0800 SAM Administration Atorvastatin Calcium 10 mg 02/20/21 21:00 02/23/21 22:07 Atorvastatin 10 Mg Tablet FEED TUBE 10 mg HS SAM Administration Dextrose 12.5 gm 02/12/21 21:03 02/19/21 12:27 Dextrose 50% 25 Gm/50 Ml Syringe IV PUSH 12.5 gm PRN PRN Administration Hypoglycemia Protocol Epoetin Tarik-epbx 10,000 units 02/22/21 18:00 02/22/21 17:45 Epoetin Tarik-Epbx 10,000 Units/Ml Vial IV PUSH 10,000 units MoWeFr@1800 SAM Administration Gabapentin 100 mg 02/20/21 09:00 02/24/21 09:13 Gabapentin 100 Mg Capsule FEED TUBE 100 mg TID SAM Administration Glucagon 1 mg 02/12/21 21:03 Glucagon For Inj 1 Mg Vial IM PRN PRN Hypoglycemia Protocol Glucose 15 gm 02/12/21 21:03 Glucose Oral Gel 15 Gm Of Glucse In 37.5 Gm Tube PO PRN PRN Hypoglycemia Protocol Hydralazine HCl 10 mg 02/16/21 08:24 02/18/21 14:13 Hydralazine Hcl 20 Mg/Ml Vial IV PUSH 10 mg Q4H PRN Administration Blood Pressure - High Dextrose 1,000 mls @ 100 mls/hr 02/12/21 21:03 Dextrose 5% 1,000 Ml IVPB PRN PRN Hypoglycemia Protocol Albumin Human 50 mls @ 999 mls/hr 02/13/21 09:09 Albutein IVPB 03/15/21 09:08 Q10M PRN HYPOTENSION Insulin Aspart 2 - 5 units 02/19/21 00:00 02/24/21 06:36 Insulin Aspart (*Bkc) 100 Units/Ml
[2021-02-24 14:00] VITALS: BP 118/68; PULSE 69; RESP 16; TEMP 36.7; O2SAT 100
[2021-02-24] MEDS: ACETAMINOPHEN ELIXIR 325 MG/10.15 ML UDC 650 MG FEED TUBE (14:45)
--- NOTE | 2021-02-24 18:14 | PM.DS ---
DS: Admitting Diagnosis Discharge Date 6:16 p.m. 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 Patient was too high risk for ERCP and the patient's family has opted for hospice Secondary Diagnosis: Coli lithiasis Hepatic steatosis Cirrhosis Aspiration, status post EGD with gastrostomy tube placement on February 19, 2021 with Gastroenterology End-stage renal disease for which the patient was on hemodialysis History of CVA BPH Depression Diabetes GERD Gout Hyperlipidemia Hypertension Hypothyroidism Neuropathy Of a troponin Hypokalemia Dementia Anemia of chronic disease Nephrolithiasis, asymptomatic Chronic pain Consultations: Nephrology, Cardiology, Gastroenterology, surgery Disposition: The patient will be discharged to the care of inpatient hospice Discharge Medications: All medication will be ordered at the discretion of the inpatient hospice service END OF DOCTOR PORFIRIO?S DISCHARGE SUMMARY DS: Data Data Completed and Pending Labs on day of discharge: Labs from last 24 hours 02/24/21 02/24/21 02/24/21 12:09 06:29 06:17 PT INR Sodium 141 Potassium 3.2 L Chloride 102 Carbon Dioxide 31 H Anion Gap 8 BUN 26 H Creatinine 3.70 H Estim Creat Clear Calc 19 Estimated GFR 20 L Glucose 135 H POC Capillary Glucose 178 H 125 H Calcium 8.8 Phosphorus 2.7 Magnesium Total Bilirubin AST ALT Alkaline Phosphatase Total Protein Albumin 3.4 L Lipase 02/24/21 02/24/21 02/24/21 06:17 06:17 00:32 PT 14.8 H INR 1.2 Sodium 140 Potassium 3.2 L Chloride 102 Carbon Dioxide 30 Anion Gap 8 BUN 26 H Creatinine 3.70 H Estim Creat Clear Calc 19 Estimated GFR 20 L Glucose 134 H POC Capillary Glucose 142 H Calcium 8.9 Phosphorus 2.7 Magnesium 2.0 Total Bilirubin 4.1 H AST 63 H ALT 31 Alkaline Phosphatase 755 H Total Protein 7.0 Albumin 3.4 L Lipase 855 H Discharge Plan Discharge Consulting providers: Geovanny Quezada ; Deepti Torrez ; Jason Trujillo ; Manolo Mcknight ; Misbah Grace Discharging Clinician: Dr. Cordero Patient Disposition: Hospice - Medical Facility Activity: as tolerated Diet: other - see discharge instructions Discharge Instructions: The patient will be discharged to the service of inpatient hospice Stand Alone Forms: General Discharge Information Discharge Medications: Discontinued losartan 50 mg Tablet 50 mg PO DAILY RF: 0 atorvastatin 10 mg Tablet 10 mg PO HS RF: 0 clopidogrel [Plavix] 75 mg Tablet 75 mg PO DAILY RF: 0 aspirin 81 mg Capsule 81 mg PO DAILY RF: 0 loperamide [Imodium A-D] 2 mg Capsule 1 mg PO Q6H MDD 8 PRN (Reason: Diarrhea) RF: 0 metoprolol tartrate 100 mg Tablet 100 mg PO Q12H RF: 0 hydrocodone-acetaminophen [[place]] 7.5-325 mg Tablet 1 tablet PO Q8H RF: 0 paroxetine HCl 20 mg Tablet 20 mg PO QAM RF: 0 mirtazapine 15 mg Tablet 15 mg PO HS RF: 0 (DME) InPen (for Humalog) Insulin Pen SUBCUT RF: 0 sevelamer carbonate 0.8 gram Powder In Packet 0.8 g PO TID RF: 0 levothyroxine 137 mcg Tablet 137 mcg PO DAILY RF: 0 terazosin 2 mg Capsule 2 mg PO HS RF: 0 gabapentin 100 mg Capsule 100 mg PO TID RF: 0 diltiazem HCl 60 mg Tablet
== END 2021-02-24 18:21 | disposition hospice, inpatient (51) | DRG 682 ==
LOC: ANHED 17:52 → ANHIMU 19:32 → ANH3MEDSUR 02-19 08:48 → ANHIMU 02-25 16:13
PROVIDERS: Emergency Medicine Emergency Medical Services; Family Medicine; Internal Medicine; Internal Medicine Gastroenterology; Internal Medicine Nephrology; Nurse Practitioner; Admitting Provider Internal Medicine; Emergency Provider Emergency Medicine; Visit Provider Internal Medicine
PROC: 0DH63UZ Insertion of Feeding Device into Stomach, Percutaneous Approach (ICD-10-PCS; CPT 43246; principal; 2021-02-19 14:30)
DX: I12.0 Hypertensive chronic kidney disease with stage 5 chronic kidney disease or end stage renal disease (principal); N18.6 End stage renal disease; K83.1 Obstruction of bile duct; G93.40 Encephalopathy, unspecified; K80.21 Calculus of gallbladder without cholecystitis with obstruction; E11.22 Type 2 diabetes mellitus with diabetic chronic kidney disease; K74.60 Unspecified cirrhosis of liver; Z20.822 Contact with and (suspected) exposure to COVID-19; E78.5 Hyperlipidemia, unspecified; N40.0 Benign prostatic hyperplasia without lower urinary tract symptoms; R00.1 Bradycardia, unspecified; R13.19 Other dysphagia; K94.21 Gastrostomy hemorrhage; T17.900A Unspecified foreign body in respiratory tract, part unspecified causing asphyxiation, initial encounter; R09.89 Other specified symptoms and signs involving the circulatory and respiratory systems; K21.9 Gastro-esophageal reflux disease without esophagitis; N20.0 Calculus of kidney; E11.42 Type 2 diabetes mellitus with diabetic polyneuropathy; E03.9 Hypothyroidism, unspecified; M10.9 Gout, unspecified; D63.1 Anemia in chronic kidney disease; F32.9 Major depressive disorder, single episode, unspecified; E87.6 Hypokalemia; Z93.1 Gastrostomy status; Z99.2 Dependence on renal dialysis; Z86.73 Personal history of transient ischemic attack (TIA), and cerebral infarction without residual deficits
CPT/HCPCS: 36415; 43246; 70450; 71045; 74018; 74176; 74181; 76376; 76705; 78226; 80048; 80053; 80069; 80076; 82140; 82271; 82550; 82607; 82728; 82746; 82948; 83036; 83540; 83550; 83615; 83690; 83735; 84100; 84443; 84484; 85014; 85018; 85025; 85027; 85610; 85730; 86140; 86705; 86706; 87340; 92526; 92610; 92611; 93005; 93306; 96374; 96375; 97162; 99285; A9270; A9537; C9803; G0257; G0378; G0379; J0360; J0690; J1610; J2270; J2405; J2765; J3480; J7030; J7120; Q5105; U0003; U0005

== ENCOUNTER 2021-02-24 17:28 | HOS | payer OTHER, SELFPAY ==
[2021-02-24 20:00] VITALS: BP 109/63; PULSE 73; RESP 16; TEMP 36.2; O2SAT 99
[2021-02-24] MEDS: MIRTAZAPINE 15 MG TABLET FEED TUBE (20:33)
--- NOTE | 2021-02-24 20:43 | PM.IMHP ---
H&P: HPI History of Present Illness Date/Time: 02/24/21 20:43 Chief Complaint: Uncontrolled pain Narrative: 6-year-old gentleman who has had a stroke with right hemiparesis and end-stage renal disease as well as hypertension and type 2 diabetes also has dysphagia and a feeding tube. He was admitted February 12 with initial complaint of chest discomfort. Labs revealed hyperbilirubinemia. Further evaluation revealed stricturing of the pancreatic and common bile ducts. He is on chronic dialysis Thursday and Thursday. Because of his poor functional status and including residence in a correction, multiple medical issues, the possibility of pancreatic cancer, high risk for interventions, his spouse who is also power of department operations manager opted for comfort care only. At presentation the patient was experiencing severe pain with any movement or touch. At present he is comfortable. Review of Systems Review of Systems: ROS unobtainable: Yes unobtainable due to medical condition PMFSH Past Medical History Medical History Abnormal finding of biliary tract Acute CVA (cerebrovascular accident) Acute encephalopathy Anemia, chronic disease BPH (benign prostatic hyperplasia) Chest pain Cholelithiasis Cirrhosis Common bile duct dilatation CVA (cerebral vascular accident) Depression Diabetes mellitus End stage renal disease on dialysis On dialysis Thursday and Thursday G tube feedings No longer has a G-tube subsequently removed. Gastroesophageal reflux disease Gout Hemiparesis Hyperlipidemia Hypertension Hypothyroidism Nausea & vomiting Neuropathy Silent aspiration Surgical History Surgical History History of abdominal surgery Family History Family History Unknown Unknown family medical history Social History Social History Social History: The patient has a Terri listed as his power department operations manager. The patient is listed as a full code. The patient is from [facility]. Smoking status: Smoker, status unknown Spiritual care concerns: Yes Meds Home Medications and Allergies Home Medications Medication Instructions Recorded Confirmed Type Lactobacillus acidophilus 1 tablet PO DAILY 02/12/21 02/12/21 History [Acidophilus] aspirin 81 mg PO DAILY 02/12/21 02/12/21 History atorvastatin 10 mg PO HS 02/12/21 02/12/21 History clopidogrel [Plavix] 75 mg PO DAILY 02/12/21 02/12/21 History darbepoetin yvette in polysorbat 100 mcg SUBCUT WEEKLY 02/12/21 02/12/21 History [Aranesp SureClick (polysorbat)] diltiazem HCl 60 mg PO QID 02/12/21 02/12/21 History gabapentin 100 mg PO TID 02/12/21 02/12/21 History hydrocodone-acetaminophen [[place]] 1 tablet PO Q8H 02/12/21 02/12/21 History insulin admin supplies [InPen (for 02/12/21 02/12/21 History Humalog)] levothyroxine 137 mcg PO DAILY 02/12/21 02/12/21 History loperamide [Imodium A-D] 1 mg PO Q6H PRN MDD 8 02/12/21 02/12/21 History losartan 50 mg PO DAILY 02/12/21 02/12/21 History metoprolol tartrate 100 mg PO Q12H 02/12/21 02/12/21 History mirtazapine 15 mg PO HS 02/12/21 02/12/21 History paroxetine HCl 20 mg PO QAM 02/12/21 02/12/21 History sevelamer carbonate 0.8 g PO TID 02/12/21 02/12/21 History terazosin 2 mg PO HS 02/12/21 02/12/21 History Allergies Allergy/AdvReac Type Severity Reaction Status Date / Time No Known Allergies Allergy Verified 02/19/21 13:40 Exam Narrative: HEENT: pharyngeal mucosa pink and intact NECK: No JVD CHEST: Clear to auscultation. Normal effort. HEART: NL S1/S2, regular, no murmur ABDOMEN: BS+, soft, nontender, no mass, no bruits EXTREMITIES: No cyanosis, edema, or clubbing NEUROLOGIC: CN with right facial droop, right hemiparesis MUSCULOSKELETAL: Right hemiparesis PSYCH: Very drowsy. Ynes
[2021-02-25] MEDS: HYDROmorphone HCL INJ (*CRX) 1 MG/ML SYR IV PUSH ×2 (07:02→15:35)
[2021-02-25] MEDS: PARoxetine 20 MG TABLET FEED TUBE (08:35)
[2021-02-25] MEDS: ARTIFICIAL TEARS OPHTH SOLN 15 ML BOTTLE 1 DROP EACH EYE (08:35)
[2021-02-25 20:00] VITALS: BP 102/57; PULSE 72; RESP 18; TEMP 36.2; O2SAT 100
[2021-02-25 20:16] VITALS: PULSE 73; RESP 16; O2SAT 99
[2021-02-25] MEDS: MIRTAZAPINE 15 MG TABLET FEED TUBE (20:29)
--- NOTE | 2021-02-25 21:22 | PM.IMPN ---
Progress Note: A&P Assessment and Plan (1) Palliative care by specialist: Code(s): Z51.5 - Encounter for palliative care Status: Acute Assessment and Plan: 02/25 requiring additional IV hydromorphone Monitor for continued decline and requirement for additional analgesia (2) Common bile duct dilatation: Code(s): K83.8 - Other specified diseases of biliary tract Status: Acute (3) Hyperbilirubinemia: Code(s): E80.6 - Other disorders of bilirubin metabolism Status: Acute (4) Nausea & vomiting: Qualifiers: Vomiting type: unspecified Vomiting Intractability: unspecified Qualified Code(s): R11.2 - Nausea with vomiting, unspecified Code(s): R11.2 - Nausea with vomiting, unspecified Status: Acute (5) Cholelithiasis: Qualifiers: Cholelithiasis location: gallbladder Cholecystitis presence: without cholecystitis Biliary obstruction: without biliary obstruction Qualified Code(s): K80.20 - Calculus of gallbladder without cholecystitis without obstruction Code(s): K80.20 - Calculus of gallbladder without cholecystitis without obstruction Status: Acute (6) CVA (cerebral vascular accident): Qualifiers: CVA mechanism: unspecified Qualified Code(s): I63.9 - Cerebral infarction, unspecified Code(s): I63.9 - Cerebral infarction, unspecified Status: Acute (7) Silent aspiration: Qualifiers: Encounter type: sequela Qualified Code(s): T17.900S - Unspecified foreign body in respiratory tract, part unspecified causing asphyxiation, sequela Code(s): T17.900A - Unspecified foreign body in respiratory tract, part unspecified causing asphyxiation, initial encounter Status: Acute (8) Anemia: Qualifiers: Chronic kidney disease stage: stage 5, not on chronic dialysis Anemia type: due to chronic kidney disease Qualified Code(s): N18.5 - Chronic kidney disease, stage 5; D63.1 - Anemia in chronic kidney disease Code(s): D64.9 - Anemia, unspecified Status: Chronic (9) End stage renal disease: Code(s): N18.6 - End stage renal disease Status: Chronic (10) Cirrhosis: Qualifiers: Hepatic cirrhosis type: unspecified hepatic cirrhosis Ascites presence: without ascites Qualified Code(s): K74.60 - Unspecified cirrhosis of liver Code(s): K74.60 - Unspecified cirrhosis of liver Status: Chronic (11) Neuropathy: Code(s): G62.9 - Polyneuropathy, unspecified Status: Chronic (12) Hypothyroidism: Qualifiers: Hypothyroidism type: unspecified Qualified Code(s): E03.9 - Hypothyroidism, unspecified Code(s): E03.9 - Hypothyroidism, unspecified Status: Chronic (13) Hypertension: Qualifiers: Hypertension type: unspecified Qualified Code(s): I10 - Essential (primary) hypertension Code(s): I10 - Essential (primary) hypertension Status: Chronic (14) Acute encephalopathy: Code(s): G93.40 - Encephalopathy, unspecified Status: Acute (15) Type 2 diabetes mellitus with diabetic polyneuropathy, with long-term current use of insulin: Code(s): E11.42 - Type 2 diabetes mellitus with diabetic polyneuropathy; Z79.4 - [facility] (current) use of insulin Status: Acute Subjective Date/time seen: 02/25/21 13:30 telemedicine visit with shovel oiler at bedside Interval history: Moaning, grimacing. Requiring additional IV hydromorphone today. Review of Systems Review of Systems: ROS unobtainable: Yes unobtainable due to medical condition Exam Narrative: Respirations unlabored. Right hemiparesis. Lethargic. Objective Data Vital Signs Vital Signs: Vital Signs - 24 hr 02/25/21 20:16 Pulse Rate 73 Respiratory Rate 16 Pulse Oximetry 99 Meds/Results Medications: Active Medications Generic Name Dose Route Start Last Admin Trade Name Freq PRN Reason Stop Dose
[2021-02-26] MEDS: HYDROmorphone HCL INJ (*CRX) 1 MG/ML SYR IV PUSH ×2 (01:45→08:43)
[2021-02-26 08:00] VITALS: BP 117/60; PULSE 66; RESP 12; TEMP 36; O2SAT 100
[2021-02-26] MEDS: LORazepam INJ (*CRX) 2 MG/ML VIAL 1 MG IV PUSH ×2 (08:35→15:36)
[2021-02-26] MEDS: PARoxetine 20 MG TABLET FEED TUBE (08:54)
--- NOTE | 2021-02-26 17:22 | PM.IMPN ---
Progress Note: A&P Assessment and Plan (1) Palliative care by specialist: Code(s): Z51.5 - Encounter for palliative care Status: Acute Assessment and Plan: MEETS INTPATIENT CRITERIA DUE TO NEED FOR ADDITIONAL IV HYDROMORPHONE WITH FLUCTUATING SYMPTOMS 02/26 requiring additional IV hydromorphone and lorazepam for analgesia and anxiety Monitor for continued decline and requirement for additional analgesia D/w spouse at bedside (2) Common bile duct dilatation: Code(s): K83.8 - Other specified diseases of biliary tract Status: Acute (3) Hyperbilirubinemia: Code(s): E80.6 - Other disorders of bilirubin metabolism Status: Acute (4) Nausea & vomiting: Qualifiers: Vomiting type: unspecified Vomiting Intractability: unspecified Qualified Code(s): R11.2 - Nausea with vomiting, unspecified Code(s): R11.2 - Nausea with vomiting, unspecified Status: Acute (5) Cholelithiasis: Qualifiers: Cholelithiasis location: gallbladder Cholecystitis presence: without cholecystitis Biliary obstruction: without biliary obstruction Qualified Code(s): K80.20 - Calculus of gallbladder without cholecystitis without obstruction Code(s): K80.20 - Calculus of gallbladder without cholecystitis without obstruction Status: Acute (6) CVA (cerebral vascular accident): Qualifiers: CVA mechanism: unspecified Qualified Code(s): I63.9 - Cerebral infarction, unspecified Code(s): I63.9 - Cerebral infarction, unspecified Status: Acute (7) Silent aspiration: Qualifiers: Encounter type: sequela Qualified Code(s): T17.900S - Unspecified foreign body in respiratory tract, part unspecified causing asphyxiation, sequela Code(s): T17.900A - Unspecified foreign body in respiratory tract, part unspecified causing asphyxiation, initial encounter Status: Acute (8) Anemia: Qualifiers: Anemia type: due to chronic kidney disease Chronic kidney disease stage: stage 5, not on chronic dialysis Qualified Code(s): N18.5 - Chronic kidney disease, stage 5; D63.1 - Anemia in chronic kidney disease Code(s): D64.9 - Anemia, unspecified Status: Chronic (9) End stage renal disease: Code(s): N18.6 - End stage renal disease Status: Chronic (10) Cirrhosis: Qualifiers: Hepatic cirrhosis type: unspecified hepatic cirrhosis Ascites presence: without ascites Qualified Code(s): K74.60 - Unspecified cirrhosis of liver Code(s): K74.60 - Unspecified cirrhosis of liver Status: Chronic (11) Neuropathy: Code(s): G62.9 - Polyneuropathy, unspecified Status: Chronic (12) Hypothyroidism: Qualifiers: Hypothyroidism type: unspecified Qualified Code(s): E03.9 - Hypothyroidism, unspecified Code(s): E03.9 - Hypothyroidism, unspecified Status: Chronic (13) Hypertension: Qualifiers: Hypertension type: unspecified Qualified Code(s): I10 - Essential (primary) hypertension Code(s): I10 - Essential (primary) hypertension Status: Chronic (14) Acute encephalopathy: Code(s): G93.40 - Encephalopathy, unspecified Status: Acute (15) Type 2 diabetes mellitus with diabetic polyneuropathy, with long-term current use of insulin: Code(s): E11.42 - Type 2 diabetes mellitus with diabetic polyneuropathy; 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 Was lethargic this AM. Awake and c/o ST this PM. Improved with use of oral swab. Pain otherwise controlled by IV hydromorphone. Review of Systems Review of Systems: ROS unobtainable: Yes unobtainable due to medical condition Exam Narrative: HEENT: PERRL, sclerae nonicteric, pharyngeal mucosa pink and intact NECK: No
[2021-02-26 20:00] VITALS: BP 136/61; PULSE 69; RESP 16; TEMP 36.2; O2SAT 98
[2021-02-26] MEDS: MIRTAZAPINE 15 MG TABLET FEED TUBE (21:00)
[2021-02-27] MEDS: HYDROmorphone HCL INJ (*CRX) 1 MG/ML SYR IV PUSH ×2 (01:54→09:55)
[2021-02-27 08:00] VITALS: BP 105/59; PULSE 69; RESP 14; TEMP 36.7; O2SAT 100
[2021-02-27] MEDS: PARoxetine 20 MG TABLET FEED TUBE (09:56)
[2021-02-27] MEDS: LORazepam INJ (*CRX) 2 MG/ML VIAL 1 MG IV PUSH (12:51)
[2021-02-27 15:37] VITALS: PULSE 69; RESP 16
[2021-02-27] MEDS: HYDROmorphone HCL/PF (*CRX) 50 MG in SODIUM CHLORIDE 0.9% IV 95 ML IV CONT (15:37)
--- NOTE | 2021-02-27 16:44 | PM.IMPN ---
Progress Note: A&P Assessment and Plan (1) Palliative care by specialist: Code(s): Z51.5 - Encounter for palliative care Status: Acute Assessment and Plan: MEETS INTPATIENT CRITERIA DUE TO NEED FOR ADDITIONAL IV HYDROMORPHONE WITH FLUCTUATING SYMPTOMS 02/26 requiring additional IV hydromorphone and lorazepam for analgesia and anxiety 02/27 initiated hydromorphone drip 0.5mg/hr D/w spouse at bedside (2) Common bile duct dilatation: Code(s): K83.8 - Other specified diseases of biliary tract Status: Acute (3) Hyperbilirubinemia: Code(s): E80.6 - Other disorders of bilirubin metabolism Status: Acute (4) Nausea & vomiting: Qualifiers: Vomiting type: unspecified Vomiting Intractability: unspecified Qualified Code(s): R11.2 - Nausea with vomiting, unspecified Code(s): R11.2 - Nausea with vomiting, unspecified Status: Acute (5) Cholelithiasis: Qualifiers: Cholelithiasis location: gallbladder Cholecystitis presence: without cholecystitis Biliary obstruction: without biliary obstruction Qualified Code(s): K80.20 - Calculus of gallbladder without cholecystitis without obstruction Code(s): K80.20 - Calculus of gallbladder without cholecystitis without obstruction Status: Acute (6) CVA (cerebral vascular accident): Qualifiers: CVA mechanism: unspecified Qualified Code(s): I63.9 - Cerebral infarction, unspecified Code(s): I63.9 - Cerebral infarction, unspecified Status: Acute (7) Silent aspiration: Qualifiers: Encounter type: sequela Qualified Code(s): T17.900S - Unspecified foreign body in respiratory tract, part unspecified causing asphyxiation, sequela Code(s): T17.900A - Unspecified foreign body in respiratory tract, part unspecified causing asphyxiation, initial encounter Status: Acute (8) Anemia: Qualifiers: Anemia type: due to chronic kidney disease Chronic kidney disease stage: stage 5, not on chronic dialysis Qualified Code(s): N18.5 - Chronic kidney disease, stage 5; D63.1 - Anemia in chronic kidney disease Code(s): D64.9 - Anemia, unspecified Status: Chronic (9) End stage renal disease: Code(s): N18.6 - End stage renal disease Status: Chronic (10) Cirrhosis: Qualifiers: Hepatic cirrhosis type: unspecified hepatic cirrhosis Ascites presence: without ascites Qualified Code(s): K74.60 - Unspecified cirrhosis of liver Code(s): K74.60 - Unspecified cirrhosis of liver Status: Chronic (11) Neuropathy: Code(s): G62.9 - Polyneuropathy, unspecified Status: Chronic (12) Hypothyroidism: Qualifiers: Hypothyroidism type: unspecified Qualified Code(s): E03.9 - Hypothyroidism, unspecified Code(s): E03.9 - Hypothyroidism, unspecified Status: Chronic (13) Hypertension: Qualifiers: Hypertension type: unspecified Qualified Code(s): I10 - Essential (primary) hypertension Code(s): I10 - Essential (primary) hypertension Status: Chronic (14) Acute encephalopathy: Code(s): G93.40 - Encephalopathy, unspecified Status: Acute (15) Type 2 diabetes mellitus with diabetic polyneuropathy, with long-term current use of insulin: Code(s): E11.42 - Type 2 diabetes mellitus with diabetic polyneuropathy; Z79.4 - snf (current) use of insulin Status: Acute Subjective Date/time seen: 02/27/21 16:44 Interval history: 02/27 VISIT: Increase pain with any movement. Spouse requested IV drip. Comfortable with conintuous hydromorphone. Tolerated few bites of comfort food. Review of Systems Review of Systems: ROS unobtainable: Yes unobtainable due to medical condition Exam Narrative: HEENT: PERRL, sclerae nonicteric, pharyngeal mucosa pink and intact NECK: No JVD CHEST: COARSE BS. Normal effort. HEART: NL S1/S2, regular, no murmur ABDOMEN
[2021-02-27 20:00] VITALS: BP 102/55; PULSE 77; RESP 14; TEMP 36.1; O2SAT 93
[2021-02-27] MEDS: MIRTAZAPINE 15 MG TABLET FEED TUBE (20:54)
[2021-02-28 08:00] VITALS: BP 108/56; PULSE 79; RESP 3; TEMP 36.1; O2SAT 95
[2021-02-28] MEDS: PARoxetine 20 MG TABLET FEED TUBE (08:59)
[2021-02-28 16:35] VITALS: PULSE 72
[2021-02-28] MEDS: HYDROmorphone HCL/PF (*CRX) 50 MG in SODIUM CHLORIDE 0.9% IV 95 ML IV CONT (16:35)
[2021-02-28 20:00] VITALS: BP 99/56; PULSE 83; RESP 18; TEMP 36.4; O2SAT 94
[2021-02-28] MEDS: MIRTAZAPINE 15 MG TABLET FEED TUBE (21:33)
[2021-02-28] MEDS: HYDROmorphone HCL INJ (*CRX) 1 MG/ML SYR IV PUSH (23:21)
[2021-02-28 23:26] VITALS: PULSE 80; RESP 2; O2SAT 92
[2021-03-01] MEDS: PARoxetine 20 MG TABLET FEED TUBE (09:05)
[2021-03-01] MEDS: LORazepam INJ (*CRX) 2 MG/ML VIAL 1 MG IV PUSH ×2 (11:01→23:06)
--- NOTE | 2021-03-01 12:55 | PM.IMPN ---
Progress Note: A&P Assessment and Plan (1) Palliative care by specialist: Code(s): Z51.5 - Encounter for palliative care Status: Acute Assessment and Plan: Continues to qualify for GIP status due to need for continuous IV hydromorphone Continue current regimen (2) Common bile duct dilatation: Code(s): K83.8 - Other specified diseases of biliary tract Status: Acute (3) Hyperbilirubinemia: Code(s): E80.6 - Other disorders of bilirubin metabolism Status: Acute (4) Nausea & vomiting: Qualifiers: Vomiting type: unspecified Vomiting Intractability: unspecified Qualified Code(s): R11.2 - Nausea with vomiting, unspecified Code(s): R11.2 - Nausea with vomiting, unspecified Status: Acute (5) Cholelithiasis: Qualifiers: Cholelithiasis location: gallbladder Cholecystitis presence: without cholecystitis Biliary obstruction: without biliary obstruction Qualified Code(s): K80.20 - Calculus of gallbladder without cholecystitis without obstruction Code(s): K80.20 - Calculus of gallbladder without cholecystitis without obstruction Status: Acute (6) CVA (cerebral vascular accident): Qualifiers: CVA mechanism: unspecified Qualified Code(s): I63.9 - Cerebral infarction, unspecified Code(s): I63.9 - Cerebral infarction, unspecified Status: Acute (7) Silent aspiration: Qualifiers: Encounter type: sequela Qualified Code(s): T17.900S - Unspecified foreign body in respiratory tract, part unspecified causing asphyxiation, sequela Code(s): T17.900A - Unspecified foreign body in respiratory tract, part unspecified causing asphyxiation, initial encounter Status: Acute (8) Anemia: Qualifiers: Anemia type: due to chronic kidney disease Chronic kidney disease stage: stage 5, not on chronic dialysis Qualified Code(s): N18.5 - Chronic kidney disease, stage 5; D63.1 - Anemia in chronic kidney disease Code(s): D64.9 - Anemia, unspecified Status: Chronic (9) End stage renal disease: Code(s): N18.6 - End stage renal disease Status: Chronic (10) Cirrhosis: Qualifiers: Hepatic cirrhosis type: unspecified hepatic cirrhosis Ascites presence: without ascites Qualified Code(s): K74.60 - Unspecified cirrhosis of liver Code(s): K74.60 - Unspecified cirrhosis of liver Status: Chronic (11) Neuropathy: Code(s): G62.9 - Polyneuropathy, unspecified Status: Chronic (12) Hypothyroidism: Qualifiers: Hypothyroidism type: unspecified Qualified Code(s): E03.9 - Hypothyroidism, unspecified Code(s): E03.9 - Hypothyroidism, unspecified Status: Chronic (13) Hypertension: Qualifiers: Hypertension type: unspecified Qualified Code(s): I10 - Essential (primary) hypertension Code(s): I10 - Essential (primary) hypertension Status: Chronic (14) Acute encephalopathy: Code(s): G93.40 - Encephalopathy, unspecified Status: Acute (15) Type 2 diabetes mellitus with diabetic polyneuropathy, with long-term current use of insulin: Code(s): E11.42 - Type 2 diabetes mellitus with diabetic polyneuropathy; Z79.4 - terminal clerk (current) use of insulin Status: Acute Subjective Date/time seen: 02/28/21 15:20 Interval history: Comfortable Review of Systems Review of Systems: ROS unobtainable: Yes unobtainable due to medical condition Exam Narrative: sleeping Objective Data Vital Signs Vital Signs: Vital Signs - 24 hr 02/28/21 16:35 02/28/21 20:00 02/28/21 23:26 Temperature 97.5 F L Pulse Rate 72 83 80 Respiratory Rate 18 2 L Blood Pressure 99/56 L Pulse Oximetry 94 92 Intake/Output Intake/Output: Intake & Output 02/26/21 02/27/21 02/28/21 03/01/21 23:59 23:59 23:59 23:59 Intake Total 25 Balance 25 Meds/Results Medications: Active Medica
[2021-03-01 16:00] VITALS: BP 100/60; PULSE 81; RESP 14; TEMP 36.5; O2SAT 93
--- NOTE | 2021-03-01 18:07 | PC.NURSE ---
an agent of [employer] called wanting an update on pt's condition. I informed her that pt was still alive but was on inpatient hospice which was being overseen by Joni. She stated that is all she needed to know.
[2021-03-01 20:00] VITALS: BP 84/48; PULSE 87; RESP 6; TEMP 35.9; O2SAT 80
[2021-03-01 20:15] VITALS: PULSE 81; RESP 14; O2SAT 93
[2021-03-01] MEDS: MIRTAZAPINE 15 MG TABLET FEED TUBE (20:59)
--- NOTE | 2021-03-02 08:10 | PM.IMPN ---
Progress Note: A&P Assessment and Plan (1) Palliative care by specialist: Code(s): Z51.5 - Encounter for palliative care Status: Acute Assessment and Plan: Continues to qualify for GIP status due to need for continuous IV hydromorphone Continue current regimen (2) Common bile duct dilatation: Code(s): K83.8 - Other specified diseases of biliary tract Status: Acute (3) Hyperbilirubinemia: Code(s): E80.6 - Other disorders of bilirubin metabolism Status: Acute (4) Nausea & vomiting: Qualifiers: Vomiting type: unspecified Vomiting Intractability: unspecified Qualified Code(s): R11.2 - Nausea with vomiting, unspecified Code(s): R11.2 - Nausea with vomiting, unspecified Status: Acute (5) Cholelithiasis: Qualifiers: Cholelithiasis location: gallbladder Cholecystitis presence: without cholecystitis Biliary obstruction: without biliary obstruction Qualified Code(s): K80.20 - Calculus of gallbladder without cholecystitis without obstruction Code(s): K80.20 - Calculus of gallbladder without cholecystitis without obstruction Status: Acute (6) CVA (cerebral vascular accident): Qualifiers: CVA mechanism: unspecified Qualified Code(s): I63.9 - Cerebral infarction, unspecified Code(s): I63.9 - Cerebral infarction, unspecified Status: Acute (7) Silent aspiration: Qualifiers: Encounter type: sequela Qualified Code(s): T17.900S - Unspecified foreign body in respiratory tract, part unspecified causing asphyxiation, sequela Code(s): T17.900A - Unspecified foreign body in respiratory tract, part unspecified causing asphyxiation, initial encounter Status: Acute (8) Anemia: Qualifiers: Anemia type: due to chronic kidney disease Chronic kidney disease stage: stage 5, not on chronic dialysis Qualified Code(s): N18.5 - Chronic kidney disease, stage 5; D63.1 - Anemia in chronic kidney disease Code(s): D64.9 - Anemia, unspecified Status: Chronic (9) End stage renal disease: Code(s): N18.6 - End stage renal disease Status: Chronic (10) Cirrhosis: Qualifiers: Hepatic cirrhosis type: unspecified hepatic cirrhosis Ascites presence: without ascites Qualified Code(s): K74.60 - Unspecified cirrhosis of liver Code(s): K74.60 - Unspecified cirrhosis of liver Status: Chronic (11) Neuropathy: Code(s): G62.9 - Polyneuropathy, unspecified Status: Chronic (12) Hypothyroidism: Qualifiers: Hypothyroidism type: unspecified Qualified Code(s): E03.9 - Hypothyroidism, unspecified Code(s): E03.9 - Hypothyroidism, unspecified Status: Chronic (13) Hypertension: Qualifiers: Hypertension type: unspecified Qualified Code(s): I10 - Essential (primary) hypertension Code(s): I10 - Essential (primary) hypertension Status: Chronic (14) Acute encephalopathy: Code(s): G93.40 - Encephalopathy, unspecified Status: Acute (15) Type 2 diabetes mellitus with diabetic polyneuropathy, with long-term current use of insulin: Code(s): E11.42 - Type 2 diabetes mellitus with diabetic polyneuropathy; Z79.4 - longterm (current) use of insulin Status: Acute Subjective Date/time seen: 03/01/21 15:00 Telemedicine visit with hospice nurse at bedside Interval history: Comfortable Review of Systems Review of Systems: ROS unobtainable: Yes unobtainable due to medical condition Exam Narrative: sleeping Objective Data Vital Signs Vital Signs: Vital Signs - 24 hr 03/01/21 16:00 03/01/21 20:00 03/01/21 20:15 Temperature 97.7 F 96.6 F L Pulse Rate 81 87 81 Respiratory Rate 14 6 L 14 Blood Pressure 100/60 84/48 L Pulse Oximetry 93 80 L 93 Intake/Output Intake/Output: Intake & Output 02/27/21 02/28/21 03/01/21 03/02/21 23:59 23:59 23:59 23:59 Intake Total
--- NOTE | 2021-03-03 20:38 | PM.DDS ---
Discharge Summary Date and Time Date of : 03/02/21 Time of : 07:40 Provider Pronounced By: Jigna Pyle Probable Cause of Probable Cause of : ESRD Summary Hospital Course: Admitted to inpatient hospice service for pain management. Medication titrated to comfort. Patient peacefully. Additional Data Confirmation of as documented by pronouncing clinician: Pupillary Reflex, Palpable Pulses, Response to Stimuli, Heart Tones and Breath Sounds Name of Provider Notified: Dr. Santillan Time Provider Notified: 08:40 Provider Requests Autopsy: No Family Requests Autopsy: No Equipment Validation Engineer Notified: Yes Date [facility] Notified of : 03/02/21 Time [facility] Notified of : 08:34
== END 2021-03-02 07:40 | disposition expired | DRG 951 ==
PROVIDERS: Admitting Provider Internal Medicine; Visit Provider Internal Medicine
DX: Z51.5 Encounter for palliative care (principal); N18.6 End stage renal disease; I12.0 Hypertensive chronic kidney disease with stage 5 chronic kidney disease or end stage renal disease; I69.351 Hemiplegia and hemiparesis following cerebral infarction affecting right dominant side; G93.40 Encephalopathy, unspecified; E11.22 Type 2 diabetes mellitus with diabetic chronic kidney disease; Z99.2 Dependence on renal dialysis; E11.42 Type 2 diabetes mellitus with diabetic polyneuropathy; J98.8 Other specified respiratory disorders; I69.391 Dysphagia following cerebral infarction; R13.10 Dysphagia, unspecified; R11.2 Nausea with vomiting, unspecified; E78.5 Hyperlipidemia, unspecified; D63.8 Anemia in other chronic diseases classified elsewhere; K80.20 Calculus of gallbladder without cholecystitis without obstruction; K83.8 Other specified diseases of biliary tract; E80.6 Other disorders of bilirubin metabolism; K74.60 Unspecified cirrhosis of liver; E03.9 Hypothyroidism, unspecified; Z79.4 Long term (current) use of insulin
CPT/HCPCS: A9270; J1170; J2060